=== PATIENT | male | born 1950 | race Caucasian/White ===

== ENCOUNTER → 2022-07-22 12:50 | Outpatient (CLI) | payer OTHER, SELFPAY ==
--- NOTE | 2022-07-22 | DI.CT.S_ITS ---
PROCEDURE: CT CHEST W CON INDICATIONS: Other forms of dyspnea TECHNIQUE: After the administration of intravenous contrast, 5 mm thick sections acquired from the pulmonary apices to the posterior costophrenic angles. 1 mm axial lung, 5 mm thick coronal and sagittal reformats and 7 mm axial MIP were acquired. For radiation dose reduction, the following was used: automated exposure control, adjustment of mA and/or kV according to patient size. COMPARISON: None. FINDINGS: Image quality: Excellent. Lungs and pleura: No acute air space opacities. Right middle lobe and lingula scars and atelectasis No pleural effusions or pneumothorax. Central and peripheral airways are patent and normal in caliber. Mediastinum: There is a mass measuring 2.8 x 3.2 cm along the right cardiac border. It may be associated with the right coronary artery. There are foci of calcification within the mass. Postsurgical changes related to CABG and severe atherosclerotic coronary artery calcifications. There is mass effect to the right atrium as well as the right ventricle. Heart size is normal. No pericardial effusion. No mediastinal or hilar adenopathy by size criteria. Thoracic aorta and central pulmonary arteries are normal in size. Esophagus is normal in caliber. No hiatal hernia. Bones and chest wall: No suspicious bony lesions. No vertebral body compression fractures. No axillary or supraclavicular adenopathy by size criteria. Thyroid gland is normal. Abdomen: There is a 5 mm stone in left kidney. A 2 cm left exophytic renal cyst is noted in the superior pole. Moderate hepatic steatosis. IMPRESSION: 1. Mass adjacent to the right cardiac border measuring 2.8 x 3.2 cm, which appears to be associated with the right coronary artery. There are postsurgical changes related to coronary artery bypass grafting. 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 Please correlate with prior imaging studies and echocardiogram. There is mass effect to the right ventricle and right atrium. 2. Severe coronary artery atherosclerosis. 3. Hepatic steatosis. 4. A 5 mm left renal stone. Dictated by: Sheila Wade M.D. on 07/22/2022 at 14:45 Approved by: Sheila Wade M.D. on 07/22/2022 at 14:55
[2022-07-22 13:24] LABS: Estimated Glomerular Filt Rate > 60 mL/min (>60)
== END ==
PROVIDERS: Specialist; PCP Internal Medicine; Referring Provider Internal Medicine; Visit Provider Internal Medicine
DX: R06.09 Other forms of dyspnea (principal); I51.9 Heart disease, unspecified; N20.0 Calculus of kidney; I25.10 Atherosclerotic heart disease of native coronary artery without angina pectoris; K76.0 Fatty (change of) liver, not elsewhere classified; Z95.1 Presence of aortocoronary bypass graft
CPT/HCPCS: 36415; 71260; 82565; Q9967

== ENCOUNTER 2024-04-18 06:56 | Inpatient (IN) | payer OTHER, SELFPAY ==
[2024-04-18] VITALS (41 sets, daily range): BP systolic 81–128; BP diastolic 48–77; PULSE 77–111; RESP 12–24; TEMP 36.1–36.8; O2SAT 92–96; BMI 37.6; BMI 35.8
[2024-04-18 07:08] LABS: Add Manual Diff / Slide Review NO; Basophils Absolute Auto 100 /uL (0-100); Basophils Percent Auto 0.3 % (0-2); Eosinophils Absolute Auto 300 /uL (0-450); Eosinophils Percent Auto 1.3 % (2-4); Hematocrit 37.6 % (41-53); Hemoglobin 12.6 g/dL (13.5-17.5); Lymphocytes Absolute Auto 5000 /uL (1100-4500); Lymphocytes Percent Auto 20.5 % (25-40); Mean Corpuscular HGB Conc 33.5 % (30-36); Mean Corpuscular Hemoglobin 32.1 PG (26-34); Mean Corpuscular Volume 95.8 fL (80-100); Monocytes Absolute Auto 1700 /uL (0-900); Monocytes Percent Auto 6.9 % (3-14); Neutrophils Absolute Auto 17300 /uL (1500-7000); Platelet Count 302 X10^3/uL (150-400); Red Blood Cell Count 3.93 X10^6/uL (4.5-5.9); White Blood Cell Count 24.4 X10^3/uL (4.5-11.0)
--- NOTE | 2024-04-18 07:08 | EKG_ITS ---
[place] [address] [address] [place] [id number] Test Date: 2024-04-18 Pat Name: [facility] Department: [facility] Room: Gender: Male Trauma Registrar: ISIDRA : [id number] Requested By: Order Number: [id number] Reading MD: Graham Diaz Measurements Intervals Clark Rate: 80 P: 52 NC: 224 QRS: -46 QRSD: 118 T: 63 QT: 412 QTc: 475 Interpretive Statements Sinus rhythm with 1st degree AV block Left axis deviation Nonspecific intraventricular conduction delay Electronically Signed On 04-18-2024 18:36:13 PST by Graham Diaz
[2024-04-18] MEDS: PANTOPRAZOLE 40 MG VIAL 80 MG IV (07:10)
[2024-04-18 07:12] LABS: INR 1.2 (0.9-1.3); Prothrombin Time 13.9 SECONDS (9.4-12.5)
[2024-04-18 07:14] LABS: PTT Partial Thromboplastin Tim 31 SECONDS (25.1-36.5)
--- NOTE | 2024-04-18 07:18 | PC.NURSE ---
Pts BP dropped to 86/54. Dr Aggarwal made aware.
--- NOTE | 2024-04-18 07:19 | ED.GIBLEED ---
HPI - GI Bleed General Chief complaint: GI Bleed Stated complaint: Dark stool Time Seen by Provider: 04/18/24 07:02 Source: patient and EMS Mode of arrival: EMS History of Present Illness HPI Narrative: Patient is a 74-year-old male. Reported to not be on anticoagulation. Is a full code. Recent heart attack/bypass graft. His had a local rehab facility secondary to the cardiac event who is here for evaluation of black colored stools. Patient states that his symptoms started this morning. He denies abdominal pain. Denies chest pain or shortness of breath. He states he has had dark-colored stools in the past but nothing to this extent and not recently. He has had a AAA repair years ago. He denies fevers. Related Data Allergies Allergy/AdvReac Type Severity Reaction Status Date / Time amoxicillin Allergy Verified 04/18/24 07:04 oxycodone Allergy Verified 04/18/24 07:04 Sulfa (Sulfonamide Allergy Verified 04/18/24 07:04 Antibiotics) Review of Systems Review of Systems ROS Unobtainable: All systems reviewed & are unremarkable except as noted in HPI and below Patient History Social History Smoking Status: Never smoker Smoking Status: Never smoker Exam Initial Vital Signs Initial Vital Signs: Vital Signs Temperature 98.3 F 04/18/24 06:59 Pulse Rate 83 04/18/24 06:59 Respiratory Rate 12 04/18/24 06:59 Blood Pressure 97/55 L 04/18/24 06:59 Pulse Oximetry 92 04/18/24 06:59 Oxygen Delivery Method Room Air 04/18/24 06:59 Const General: comfortable and well developed HENMT Head: normal to inspection and normocephalic Resp Effort & Inspection: normal respiratory effort Auscultation: clear to auscultation bilaterally Cardio Rate: regular rate Rhythm: regular rhythm GI Inspection: normal to inspection and non-distended Skin General: no rashes or lesions noted Other: Well healed surgical scars consistent with stated history Neuro General: patient alert and patient awake Course Orders Ordered: ED Orders 04/18/24 06:58 Complete Blood Count AUTO DIFF Stat Comprehensive Metabolic Panel Stat PTT Partial Thromboplastin Evaristo Stat Prothrombin Time INR Stat Troponin & CK Cardiac Panel Stat 04/18/24 07:01 EKG-12 Lead Stat 04/18/24 07:15 Type and Screen Stat 04/18/24 07:19 CT angio Abd/Pel GI Bleed Stat 04/18/24 09:00 Hemoglobin and Hematocrit Stat Lactate (Lactic Acid) Stat 04/18/24 09:18 Consult to General Surgery Stat Ondansetron HCl (Ondansetron 4 Mg/2 Ml Inj) 4 mg IV NOW PRN PRN Reason: Nausea And Vomiting Ondansetron HCl (Ondansetron 4 Mg Odt) 4 mg SL NOW PRN PRN Reason: Nausea And Vomiting Discontinued Medications Sodium Chloride (Normal Saline 0.9%) 1,000 mls @ 500 mls/hr IV BOLUS ONE Stop: 04/18/24 09:21 Last Infusion: 04/18/24 09:35 Dose: Infused Documented By: Admin: 04/18/24 08:17 Dose: 500 mls/hr Documented By: NIDHI Pantoprazole Sodium (Pantoprazole 40 Mg Vial) 80 mg IV NOW ONE Stop: 04/18/24 07:02 Last Admin: 04/18/24 07:10 Dose: 80 mg Documented By: NIDHI Vital Signs Vital signs: Vital Signs - 8 hr 04/18/24 06:59 04/18/24 06:59 04/18/24 06:59 Temperature 98.3 F Pulse Rate 83 84 Respiratory Rate 12 Blood Pressure 97/55 L 95/57 L Pulse Oximetry 92 93 Oxygen Delivery Method Room Air 04/18/24 07:00 04/18/24 07:00 04/18/24 07:15 Temperature Pulse Rate 81 78 Respiratory Rate 18 Blood Pressure 97/55 L Pulse Oximetry 93 92 Oxygen Delivery Method 04/18/24 07:15 04/18/24 07:20 04/18/24 07:20 Temperature Pulse Rate 79 Respiratory Rate 20 Blood Pressure 86/54 L 82/51 L Pulse Oximetry 94 Oxygen Delivery Method 04/18/24 07:33 04/18/24 07:35 04/18/24 07:35 Temperature Pulse Rate 85 84 Respiratory Rate 23 Blood Pressure 96/54 L Pulse Oximetry 96 Oxygen Delivery Method 04/18/24 07:40 04/18/24 07:40 04/18/24 07:45 Temperature Pulse Rate 82 80 Respiratory Rate 24 16 Blood Pressure 84/52 L Pulse Oximetry 95 95 Oxygen Delivery Method 04/18/24 07:45 04/18/24 07:46 04/18/24 07:46 Temperature Pulse Rate 80 Respiratory Rate 21 Blood Pressure 91/52 L 100/52 L Pulse Oximetry 95 Oxygen Delivery Method 04/18/24 07:50 04/18/24 07:50 04/18/24 07:55 Temperature Pulse Rate 81 Respiratory Rate 22 Blood Pressure 81/48 L 103/54 L Pulse Oximetry 95 Oxygen Delivery Method 04/18/24 07:55 04/18/24 07:57 04/18/24 07:57 Temperature Pulse Rate 80 77 Respiratory Rate 24 19 Blood Pressure 98/54 L Pulse Oximetry 93 93 Oxygen Delivery Method 04/18/24 08:00 04/18/24 08:00 04/18/24 08:08 Temperature Pulse Rate 78 Respiratory Rate 20 Blood Pressure 100/51 L 94/52 L Pulse Oximetry 93 Oxygen Delivery Method 04/18/24 08:08 04/18/24 08:10 04/18/24 08:10 Temperature Pulse Rate 79 79 Respiratory Rate 21 17 Blood Pressure 95/50 L Pulse Oximetry 94 94 Oxygen Delivery Method 04/18/24 08:15 04/18/24 08:15 04/18/24 08:20 Temperature Pulse Rate 79 80 Respiratory Rate 22 21 Blood Pressure 96/49 L Pulse Oximetry 94 95 Oxygen Delivery Method 04/18/24 08:20 04/18/24 08:25 04/18/24 08:25 Temperature Pulse Rate 80 Respiratory Rate 22 Blood Pressure 89/55 L 87/55 L Pulse Oximetry 95 Oxygen Delivery Method 04/18/24 08:30 04/18/24 08:30 04/18/24 08:35 Temperature Pulse Rate 81 Respiratory Rate 23 Blood Pressure 85/50 L 88/55 L Pulse Oximetry 95 Oxygen Delivery Method 04/18/24 08:35 04/18/24 08:40 04/18/24 08:40 Temperature Pulse Rate 79 82 Respiratory Rate 23 23 Blood Pressure 114/59 L Pulse Oximetry 94 95 Oxygen Delivery Method 04/18/24 08:45 04/18/24 08:45 04/18/24 08:50 Temperature Pulse Rate 81 Respiratory Rate 18 Blood Pressure 92/50 L 107/54 L Pulse Oximetry 94 Oxygen Delivery Method 04/18/24 08:50 04/18/24 08:55 04/18/24 08:55 Temperature Pulse Rate 80 80 Respiratory Rate 22 20 Blood Pressure 90/51 L Pulse Oximetry 95 Oxygen Delivery Method 04/18/24 09:00 04/18/24 09:00 04/18/24 09:05 Temperature Pulse Rate 83 Respiratory Rate 22 Blood Pressure 106/59 L 102/55 L Pulse Oximetry 96 Oxygen Delivery Method 04/18/24 09:05 04/18/24 09:10 04/18/24 09:10 Temperature Pulse Rate 80 82 Respiratory Rate 21 21 Blood Pressure 101/57 L Pulse Oximetry 94 94 Oxygen Delivery Method 04/18/24 09:15 04/18/24 09:15 04/18/24 09:20 Temperature Pulse Rate 79 Respiratory Rate 22 Blood Pressure 96/58 L 109/56 L Pulse Oximetry 94 Oxygen Delivery Method 04/18/24 09:20 04/18/24 09:25 04/18/24 09:25 Temperature Pulse Rate 81 82 Respiratory Rate 22 22 Blood Pressure 115/58 L Pulse Oximetry 94 94 Oxygen Delivery Method 04/18/24 09:30 04/18/24 09:30 Temperature Pulse Rate 83 Respiratory Rate 18 Blood Pressure 116/63 Pulse Oximetry 94 Oxygen Delivery Method MDM - GI Bleed Lab Data Attestation: I reviewed the patient's lab results. 04/18/24 09:00 04/18/24 06:58 Labs: Lab Results 04/18/24 04/18/24 04/18/24 Range/Units 06:58 07:15 09:00 WBC 24.4 H (4.5-11.0) X10^3/uL RBC 3.93 L (4.5-5.9) X10^6/uL Hgb 12.6 L 11.4 L (13.5-17.5) g/dL Hct 37.6 L 33.6 L (41-53) % MCV 95.8 (80-100) fL MCH 32.1 (26-34) PG MCHC 33.5 (30-36) % RDW 13.0 (11.6-14.8) % Plt Count 302 (150-400) X10^3/uL Neut % (Auto) 71.0 (50-75) % Lymph % (Auto) 20.5 L (25-40) % [place] % (Auto) 6.9 (3-14) % Eos % (Auto) 1.3 L (2-4) % Baso % (Auto) 0.3 (0-2) % Neut # (Auto) 50222 H (0689-5274) /uL Lymph # (Auto) 5000 H (4468-0495) /uL [place] # (Auto) 1700 H (0-900) /uL Eos # (Auto) 300 (0-450) /uL Baso # (Auto) 100 (0-100) /uL PT 13.9 H (9.4-12.5) SECONDS INR 1.2 (0.9-1.3) APTT 31 (25.1-36.5) SECONDS Sodium 138 (137-145) mmol/L Potassium 4.7 (3.4-5.1) mmol/L Chloride 109 H (98-107) mmol/L Carbon Dioxide 21 L (22-32) mmol/L BUN 38 H (9-20) mg/dL Creatinine 1.02 (0.66-1.25) mg/dL Estimated GFR > 60 (>60) mL/min BUN/Creatinine Ratio 37.3 H (6-22) Glucose 218 H (80-110) mg/dL Lactate 1.8 (0.7-2.1) mmol/L Calcium 8.8 (8.4-10.2) mg/dL Total Bilirubin 1.7 H (0.2-1.3) mg/dL AST 30 (17-59) IU/L ALT 29 (<50) IU/L Alkaline Phosphatase 68 (38-126) U/L Total Creatine Kinase 59 (55-170) U/L Total Protein 6.6 (6.3-8.2) g/dL Albumin 3.6 (3.5-5.0) g/dL Globulin 3.0 (1.7-4.1) g/dL Albumin/Globulin Ratio 1.2 (1.0-2.8) Blood Type A Positive Antibody Screen Positive Antibody Identification Anti-Fya Imaging Data CT scan - abdomen/pelvis: Radiologist's Impression: PROCEDURE: CT ANGIO ABD/PEL GI BLEED INDICATIONS: GI Bleed TECHNIQUE: After the administration of intravenous contrast, 2.5 mm thick sections acquired from the diaphragm to the symphysis. 10 mm maximum-intensity projection (MIP) reformats were then acquired. For radiation dose reduction, the following was used: automated exposure control. COMPARISON: [facility], RG, [facility]A [facility], 01/28/2019, 10:52. FINDINGS: Image Quality: Diagnostic. Abdominal aorta: Infrarenal aortic aneurysm measuring 3.6 centimeter. 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 SMA has mild atherosclerotic disease without poststenotic dilation. Occlusion of the HANDY, with reconstitution approximately 2 centimeters from the origin. Renal arteries: Patent without hemodynamically significant stenosis. OTHER: Lower Chest: Dependent secretions within the airways. Small hiatal hernia. Liver: No solid mass. Gallbladder: No radiopaque gallstones or wall thickening. Biliary ducts: No biliary dilation. Pancreas: No ductal dilation. Spleen: Size is within normal limits. Adrenal Glands: No adrenal nodules. Kidneys and Ureters: No hydronephrosis. No solid mass. No complex renal cystic lesion which requires follow up. Moderate burden left-sided nonobstructing nephrolithiasis, largest measuring 5 millimeters. Stomach and Bowel: Normal colonic caliber, without significant wall thickening. Colonic diverticulosis without evidence of diverticulitis. Normal appendix. Peritoneum: No abnormal intraperitoneal fluid. No free air. Ventral Wall: Small umbilical hernia containing fat. Multifocal midline, small ventral hernias containing fat. Abdominal Nodes: No retroperitoneal or mesenteric adenopathy by size criteria. Vessels: Occluded left internal iliac aneurysm, with distal reconstitution. Left common iliac bypass. PELVIS: Pelvic Organs: Unremarkable. Bladder: Unremarkable. Pelvic Nodes: No enlarged lymph nodes. Miscellaneous: No inguinal hernias are seen. Bones: No aggressive osseous abnormality. IMPRESSION: No active GI bleed. 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 Mild atherosclerotic disease of the SMA. HANDY is occluded. Together, findings place this patient at risk of chronic mesenteric ischemia. Infrarenal aortic aneurysm measuring 3.6 centimeters, not significantly changed since 2019. Five year sonographic follow-up is recommended per consensus guidelines. Dependent secretions within the airways, which may indicate aspiration. Correlate with risk factors and consider speech pathology referral. Other chronic findings as above. ECG Data Attestation: I personally reviewed and interpreted this ECG as follows: Interpretation: Sinus rhythm First-degree AV block WI interval 2-4 milliseconds Ventricular rate of 80 Left axis deviation MDM Narrative Medical decision making narrative: Recent admission to the hospital for an NSTEMI. He was on dual antiplatelet (aspirin/clopidogrel) but no other anticoagulation. Is here for evaluation of black colored stools this morning. He has had a colonoscopy in the past (within the last 10 years) but it does not know the exact date. He states there were no abnormalities. He has had GI bleeding in the past but he states it was never been to this extent. Patient arrived hypotensive with a systolic blood pressures in the 80s. This improved with just gentle hydration. Initial H&H is relatively unremarkable and a 2 hour repeat shows just a slight drop. CT scan does not show any active bleeding. He was a soft abdomen. Unremarkable lactate. 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 He has had a AAA repair in the past. I did discuss the case with Dr. Spear on-call for General surgery who stated that he would consult on the patient upon admission. Discussed the case with Dr. Diaz hospitalist on-call who will admit. Discussed the need for admission with the patient. He expressed understanding and agreement as well. Discharge Plan Departure Patient Disposition: Admitted As Inpatient Clinical Impression: Melena Admit Date/Time: 04/18/24 09:31 Admit Provider: Graham Diaz
[2024-04-18 07:20] LABS: Alanine Aminotransferase 29 IU/L (<50); Albumin 3.6 g/dL (3.5-5.0); Albumin Globulin Ratio 1.2 (1.0-2.8); Alkaline Phosphatase 68 U/L (38-126); Aspartate Aminotransferase 30 IU/L (17-59); BUN Creatinine Ratio 37.3 (6-22); Bilirubin Total 1.7 mg/dL (0.2-1.3); Blood Urea Nitrogen 38 mg/dL (9-20); Calcium 8.8 mg/dL (8.4-10.2); Carbon Dioxide 21 mmol/L (22-32); Chloride 109 mmol/L (98-107); Estimated Glomerular Filt Rate > 60 mL/min (>60); Glucose 218 mg/dL (80-110); HEMOLYSIS 30 (0-50); Potassium 4.7 mmol/L (3.4-5.1); Sodium 138 mmol/L (137-145); Total Protein 6.6 g/dL (6.3-8.2)
[2024-04-18] MEDS: SODIUM CHLORIDE 0.9% 1,000 ML 500 ML IV (08:17)
--- NOTE | 2024-04-18 08:36 | PC.NURSE ---
Pt noted to have maroon colored stool. Diarrhea noted. Pt tachypnic around 24 RR. Pt states he may have had a GI bleed in the past he does not remember. Denies taking blood thinner. States he does not know if he takes ibuprofen? Pt states the bleeding happened this evening.Pt informed it is still the morning. Pt slightly pale in color. BP running between 80s-110s systolic. Pt states he is at [facility] [place]
[2024-04-18 09:11] LABS: Hematocrit 33.6 % (41-53); Hemoglobin 11.4 g/dL (13.5-17.5)
[2024-04-18 09:23] LABS: Lactate (Lactic Acid) 1.8 mmol/L (0.7-2.1)
[2024-04-18 09:44] LABS: Creatine Kinase 59 U/L (55-170)
[2024-04-18 09:57] LABS: Troponin I 0.024 ng/mL (0.01-0.034)
--- NOTE | 2024-04-18 10:33 | P.HP_ITS ---
History of Present Illness History of Present Illness Date Patient Seen: 04/18/24 Chief complaint: Dark stool Narrative: The patient was a 74-year-old male who presented from [facility] due to melena this morning. He was found to have stable vital signs and has had a stable hemoglobin with serial lab draws today. He denies any epigastric abdominal pain, nausea, vomiting, or hematemesis. He was no history of PUD or melena. He was discharged from [facility] after an admission for an NSTEMI. The patient has a known history of CAD and was found to have an interval occlusion of his mid circumflex. He had a patent YAP to LAD stent and a patent SVG to diagonal stent as well as multiple chronic severe stenoses in the RCA. His EF at improved to 75%. He had a CABG in 2004. He also has mild aortic stenosis as well as a known aortic aneurysm which was repaired in 2012 and a provoked pulmonary embolism. He was chronic diabetes type 2. Echo from April 08 reveals an EF of 75% and an aortic mass from previous echo has resolved. He was mild aortic valve stenosis with a aortic valve area of 2.0 sq cm. He was discharged from [facility] on Plavix, Jardiance, Imdur, and lisinopril. Dr. Baker was his esthetician makeup artist. Upon arrival he denies any chest pain or dyspnea. He also denies any abdominal pain this morning. [facility] Social History household members: spouse Smoking Status: Never smoker Meds Home Medications and Allergies Home Medications Medication Instructions Recorded Confirmed Type acetaminophen 500 mg tablet 500 mg PO Q6H PRN Pain (Scale 04/18/24 04/18/24 History Score 1-3) aspirin 81 mg chewable tablet 81 mg PO DAILY 04/18/24 04/18/24 History atorvastatin 80 mg tablet 80 mg PO DAILY 04/18/24 04/18/24 History bupropion HCl 150 mg 24 hr tablet, 150 mg PO DAILY 04/18/24 04/18/24 History extended release cholecalciferol (vitamin D3) 25 25 mcg PO DAILY 04/18/24 04/18/24 History mcg (1,000 unit) tablet clopidogrel 75 mg tablet 75 mg PO DAILY 04/18/24 04/18/24 History duloxetine 30 mg capsule,delayed 30 mg PO DAILY 04/18/24 04/18/24 History release empagliflozin 10 mg tablet 10 mg PO DAILY 04/18/24 04/18/24 History (Jardiance) ezetimibe 10 mg tablet 10 mg PO DAILY 04/18/24 04/18/24 History hydrocodone 5 mg-acetaminophen 325 1 tab PO 3XD PRN Pain (Scale Score 04/18/24 04/18/24 History mg tablet 4-6) isosorbide mononitrate 30 mg 30 mg PO DAILY 04/18/24 04/18/24 History tablet,extended release 24 hr levothyroxine 100 mcg tablet 100 mcg PO DAILY 04/18/24 04/18/24 History lisinopril 5 mg tablet 5 mg PO DAILY 04/18/24 04/18/24 History metoprolol succinate 100 mg 100 mg PO DAILY 04/18/24 04/18/24 History tablet,extended release 24 hr mirabegron 50 mg tablet,extended 50 mg PO DAILY 04/18/24 04/18/24 History release 24 hr nitroglycerin 0.4 mg sublingual 0.4 mg sublingual Q5-15M PRN Chest 04/18/24 04/18/24 History tablet Pain omeprazole magnesium 20 mg 20 mg PO DAILY 04/18/24 04/18/24 History capsule,delayed release (Acid [employer] (omeprazole)) ranolazine 500 mg tablet,extended 500 mg PO BID 04/18/24 04/18/24 History release,12 hr tamsulosin 0.4 mg capsule 0.4 mg PO DAILY 04/18/24 04/18/24 History Allergies Allergy/AdvReac Type Severity Reaction Status Date / Time amoxicillin Allergy Verified 04/18/24 07:04 oxycodone Allergy Verified 04/18/24 07:04 Sulfa (Sulfonamide Allergy Verified 04/18/24 07:04 Antibiotics) Review of Systems Review of Systems Narrative: All else reviewed and otherwise unremarkable except as noted in the history and physical. Exam Vital Signs (past 8 hours): - 04/18/24 06:59 04/18/24 06:59 04/18/24 06:59 Temperature 98.3 F Pulse Rate 83 84 Respiratory Rate 12 Blood Pressure 97/55 L 95/57 L Pulse Oximetry 92 93 Oxygen Delivery Method Room Air Oxygen Flow Rate 04/18/24 07:00 04/18/24 07:00 04/18/24 07:15 Temperature Pulse Rate 81 78 Respiratory Rate 18 Blood Pressure 97/55 L Pulse Oximetry 93 92 Oxygen Delivery Method Oxygen Flow Rate 04/18/24 07:15 04/18/24 07:20 04/18/24 07:20 Temperature Pulse Rate 79 Respiratory Rate 20 Blood Pressure 86/54 L 82/51 L Pulse Oximetry 94 Oxygen Delivery Method Oxygen Flow Rate 04/18/24 07:33 04/18/24 07:35 04/18/24 07:35 Temperature Pulse Rate 85 84 Respiratory Rate 23 Blood Pressure 96/54 L Pulse Oximetry 96 Oxygen Delivery Method Oxygen Flow Rate 04/18/24 07:40 04/18/24 07:40 04/18/24 07:45 Temperature Pulse Rate 82 80 Respiratory Rate 24 16 Blood Pressure 84/52 L Pulse Oximetry 95 95 Oxygen Delivery Method Oxygen Flow Rate 04/18/24 07:45 04/18/24 07:46 04/18/24 07:46 Temperature Pulse Rate 80 Respiratory Rate 21 Blood Pressure 91/52 L 100/52 L Pulse Oximetry 95 Oxygen Delivery Method Oxygen Flow Rate 04/18/24 07:50 04/18/24 07:50 04/18/24 07:55 Temperature Pulse Rate 81 Respiratory Rate 22 Blood Pressure 81/48 L 103/54 L Pulse Oximetry 95 Oxygen Delivery Method Oxygen Flow Rate 04/18/24 07:55 04/18/24 07:57 04/18/24 07:57 Temperature Pulse Rate 80 77 Respiratory Rate 24 19 Blood Pressure 98/54 L Pulse Oximetry 93 93 Oxygen Delivery Method Oxygen Flow Rate 04/18/24 08:00 04/18/24 08:00 04/18/24 08:08 Temperature Pulse Rate 78 Respiratory Rate 20 Blood Pressure 100/51 L 94/52 L Pulse Oximetry 93 Oxygen Delivery Method Oxygen Flow Rate 04/18/24 08:08 04/18/24 08:10 04/18/24 08:10 Temperature Pulse Rate 79 79 Respiratory Rate 21 17 Blood Pressure 95/50 L Pulse Oximetry 94 94 Oxygen Delivery Method Oxygen Flow Rate 04/18/24 08:15 04/18/24 08:15 04/18/24 08:20 Temperature Pulse Rate 79 80 Respiratory Rate 22 21 Blood Pressure 96/49 L Pulse Oximetry 94 95 Oxygen Delivery Method Oxygen Flow Rate 04/18/24 08:20 04/18/24 08:25 04/18/24 08:25 Temperature Pulse Rate 80 Respiratory Rate 22 Blood Pressure 89/55 L 87/55 L Pulse Oximetry 95 Oxygen Delivery Method Oxygen Flow Rate 04/18/24 08:30 04/18/24 08:30 04/18/24 08:35 Temperature Pulse Rate 81 Respiratory Rate 23 Blood Pressure 85/50 L 88/55 L Pulse Oximetry 95 Oxygen Delivery Method Oxygen Flow Rate 04/18/24 08:35 04/18/24 08:40 04/18/24 08:40 Temperature Pulse Rate 79 82 Respiratory Rate 23 23 Blood Pressure 114/59 L Pulse Oximetry 94 95 Oxygen Delivery Method Oxygen Flow Rate 04/18/24 08:45 04/18/24 08:45 04/18/24 08:50 Temperature Pulse Rate 81 Respiratory Rate 18 Blood Pressure 92/50 L 107/54 L Pulse Oximetry 94 Oxygen Delivery Method Oxygen Flow Rate 04/18/24 08:50 04/18/24 08:55 04/18/24 08:55 Temperature Pulse Rate 80 80 Respiratory Rate 22 20 Blood Pressure 90/51 L Pulse Oximetry 95 Oxygen Delivery Method Oxygen Flow Rate 04/18/24 09:00 04/18/24 09:00 04/18/24 09:05 Temperature Pulse Rate 83 Respiratory Rate 22 Blood Pressure 106/59 L 102/55 L Pulse Oximetry 96 Oxygen Delivery Method Oxygen Flow Rate 04/18/24 09:05 04/18/24 09:10 04/18/24 09:10 Temperature Pulse Rate 80 82 Respiratory Rate 21 21 Blood Pressure 101/57 L Pulse Oximetry 94 94 Oxygen Delivery Method Oxygen Flow Rate 04/18/24 09:15 04/18/24 09:15 04/18/24 09:20 Temperature Pulse Rate 79 Respiratory Rate 22 Blood Pressure 96/58 L 109/56 L Pulse Oximetry 94 Oxygen Delivery Method Oxygen Flow Rate 04/18/24 09:20 04/18/24 09:25 04/18/24 09:25 Temperature Pulse Rate 81 82 Respiratory Rate 22 22 Blood Pressure 115/58 L Pulse Oximetry 94 94 Oxygen Delivery Method Oxygen Flow Rate 04/18/24 09:30 04/18/24 09:30 04/18/24 09:35 Temperature Pulse Rate 83 Respiratory Rate 18 Blood Pressure 116/63 128/70 Pulse Oximetry 94 Oxygen Delivery Method Oxygen Flow Rate 04/18/24 09:35 04/18/24 09:40 04/18/24 09:40 Temperature Pulse Rate 87 85 Respiratory Rate 18 21 Blood Pressure 123/72 Pulse Oximetry 94 94 Oxygen Delivery Method Oxygen Flow Rate 04/18/24 09:41 04/18/24 09:46 04/18/24 09:51 Temperature Pulse Rate 86 90 Respiratory Rate 15 Blood Pressure 89/57 L Pulse Oximetry Oxygen Delivery Method Oxygen Flow Rate 04/18/24 09:52 04/18/24 10:28 Temperature 97.4 F L Pulse Rate 84 Respiratory Rate 20 Blood Pressure 122/65 105/77 Pulse Oximetry 96 Oxygen Delivery Method Oxygen Flow Rate 0 Oxygen Delivery Method Room Air Oxygen Flow Rate 0 Narrative Exam Narrative: NAD, alert and oriented, fluent speech, calm. Normocephalic skull, EOMI, anicteric sclera, symmetric pupils. Oropharynx unremarkable, no droop. Neck supple, midline trachea, no adenopathy. Lungs clear, normal rate and effort. Heart regular, no murmur gallop or rub. Abdomen is soft, non distended and non tender. Extremities are free of edema. Skin is free of rash or lesions. Joints are not swollen or deformed. Judgment appears to be normal. Objective Imaging Abdomen CTA: : My impression: Sinus rhythm with 1st degree AV block Left axis deviation Nonspecific intraventricular conduction delay Radiologist's impression: No active GI bleed. 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 Mild atherosclerotic disease of the SMA. HANDY is occluded. Together, findings place this patient at risk of chronic mesenteric ischemia. Infrarenal aortic aneurysm measuring 3.6 centimeters, not significantly changed since 2019. Five year sonographic follow-up is recommended per consensus guidelines. Dependent secretions within the airways, which may indicate aspiration. Correlate with risk factors and consider speech pathology referral. Other chronic findings as above. Labs 04/18/24 10:55 04/18/24 06:58 Labs: Laboratory Results - last 24 hr 04/18/24 04/18/24 04/18/24 06:58 07:15 09:00 WBC 24.4 H RBC 3.93 L Hgb 12.6 L 11.4 L Hct 37.6 L 33.6 L MCV 95.8 MCH 32.1 MCHC 33.5 RDW 13.0 Plt Count 302 Neut % (Auto) 71.0 Lymph % (Auto) 20.5 L Emanuel % (Auto) 6.9 Eos % (Auto) 1.3 L Baso % (Auto) 0.3 Neut # (Auto) 68724 H Lymph # (Auto) 5000 H Emanuel # (Auto) 1700 H Eos # (Auto) 300 Baso # (Auto) 100 PT 13.9 H INR 1.2 APTT 31 Sodium 138 Potassium 4.7 Chloride 109 H Carbon Dioxide 21 L BUN 38 H Creatinine 1.02 Estimated GFR > 60 BUN/Creatinine Ratio 37.3 H Glucose 218 H Lactate 1.8 Calcium 8.8 Total Bilirubin 1.7 H AST 30 ALT 29 Alkaline Phosphatase 68 Total Creatine Kinase 59 Troponin I 0.024 Total Protein 6.6 Albumin 3.6 Globulin 3.0 Albumin/Globulin Ratio 1.2 Blood Type A Positive 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 Upper GI bleed with melena, present on admission and active. 2. CAD, present on admission and stable. On chronic Plavix. 3. Mild aortic stenosis, present on admission and stable. 4. DM 2, present on admission and stable. 5. Obesity class 2 with BMI of 35.8, present on admission and active. Plan: -IV ppi, Protonix 40 IV q.12 hours. -general surgery consultation for consideration of endoscopy. -hold Plavix for 24-48 hours. -we will discuss with [facility] pending his clinical course. -blood support if he has severe enough blood loss anemia. -a.c. HS blood sugars with correctional lispro. Full resuscitation, he was a pulse which is dated April 08, 2024. Anticipate 2 midnights length of hospitalization, supports inpatient status. REJI: April 20. Time-Based Coding :: 35 min spent with patient and on the chart (including review of chart, obtaining history, exam, reviewing outside data, placing orders, documenting exam and treatment plan, and counseling patient) on 04/18. Quality VTE Deep Vein Thrombosis/Pulmonary Embolism Present on Admission: No MIPS - Admit I confirm the patient?s Advance Care Plan is present, Code status is documented, Surrogate decision maker is in patient?s record [If Yes, STOP here]: Yes MIPS - Meds 'Current medications' to include all prescriptions, [id number] products, herbals, cannabis/cannabidiol products, and vitamin/mineral/dietary (nutritional) supplements. I have utilized all available resources to obtain, update, or review the patient?s current medications. [If Yes, STOP here]: Yes
[2024-04-18] MEDS: SODIUM CHLORIDE 0.9% 1,000 ML 50 ML IV (11:19)
[2024-04-18 11:33] LABS: Hematocrit 33.5 % (41-53); Hemoglobin 11.6 g/dL (13.5-17.5)
--- NOTE | 2024-04-18 11:54 | PM.CN ---
History of Present Illness Consult details Date Patient Seen: 04/18/24 Time Patient Seen: 11:56 Chief complaint: Dark stool Reason for consult: GI bleed, s/p CABG 2 wks ago, on ASA and Plavix.. Meds Home Medications and Allergies Home Medications Medication Instructions Recorded Confirmed Type acetaminophen 500 mg tablet 500 mg PO Q6H PRN Pain (Scale 04/18/24 04/18/24 History Score 1-3) aspirin 81 mg chewable tablet 81 mg PO DAILY 04/18/24 04/18/24 History atorvastatin 80 mg tablet 80 mg PO DAILY 04/18/24 04/18/24 History bupropion HCl 150 mg 24 hr tablet, 150 mg PO DAILY 04/18/24 04/18/24 History extended release cholecalciferol (vitamin D3) 25 25 mcg PO DAILY 04/18/24 04/18/24 History mcg (1,000 unit) tablet clopidogrel 75 mg tablet 75 mg PO DAILY 04/18/24 04/18/24 History duloxetine 30 mg capsule,delayed 30 mg PO DAILY 04/18/24 04/18/24 History release empagliflozin 10 mg tablet 10 mg PO DAILY 04/18/24 04/18/24 History (Jardiance) ezetimibe 10 mg tablet 10 mg PO DAILY 04/18/24 04/18/24 History hydrocodone 5 mg-acetaminophen 325 1 tab PO 3XD PRN Pain (Scale Score 04/18/24 04/18/24 History mg tablet 4-6) isosorbide mononitrate 30 mg 30 mg PO DAILY 04/18/24 04/18/24 History tablet,extended release 24 hr levothyroxine 100 mcg tablet 100 mcg PO DAILY 04/18/24 04/18/24 History lisinopril 5 mg tablet 5 mg PO DAILY 04/18/24 04/18/24 History metoprolol succinate 100 mg 100 mg PO DAILY 04/18/24 04/18/24 History tablet,extended release 24 hr mirabegron 50 mg tablet,extended 50 mg PO DAILY 04/18/24 04/18/24 History release 24 hr nitroglycerin 0.4 mg sublingual 0.4 mg sublingual Q5-15M PRN Chest 04/18/24 04/18/24 History tablet Pain omeprazole magnesium 20 mg 20 mg PO DAILY 04/18/24 04/18/24 History capsule,delayed release (Acid Manager Professional Development (omeprazole)) ranolazine 500 mg tablet,extended 500 mg PO BID 04/18/24 04/18/24 History release,12 hr tamsulosin 0.4 mg capsule 0.4 mg PO DAILY 04/18/24 04/18/24 History Allergies Allergy/AdvReac Type Severity Reaction Status Date / Time amoxicillin Allergy Verified 04/18/24 07:04 oxycodone Allergy Verified 04/18/24 07:04 Sulfa (Sulfonamide Allergy Verified 04/18/24 07:04 Antibiotics) Review of Systems Review of Systems ROS: Yes All systems reviewed with the patient and are negative except as otherwise documented Exam Vital Signs (past 8 hours): - 04/18/24 06:59 04/18/24 06:59 04/18/24 06:59 Temperature 98.3 F Pulse Rate 83 84 Respiratory Rate 12 Blood Pressure 97/55 L 95/57 L Pulse Oximetry 92 93 Oxygen Delivery Method Room Air Oxygen Flow Rate 04/18/24 07:00 04/18/24 07:00 04/18/24 07:15 Temperature Pulse Rate 81 78 Respiratory Rate 18 Blood Pressure 97/55 L Pulse Oximetry 93 92 Oxygen Delivery Method Oxygen Flow Rate 04/18/24 07:15 04/18/24 07:20 04/18/24 07:20 Temperature Pulse Rate 79 Respiratory Rate 20 Blood Pressure 86/54 L 82/51 L Pulse Oximetry 94 Oxygen Delivery Method Oxygen Flow Rate 04/18/24 07:33 04/18/24 07:35 04/18/24 07:35 Temperature Pulse Rate 85 84 Respiratory Rate 23 Blood Pressure 96/54 L Pulse Oximetry 96 Oxygen Delivery Method Oxygen Flow Rate 04/18/24 07:40 04/18/24 07:40 04/18/24 07:45 Temperature Pulse Rate 82 80 Respiratory Rate 24 16 Blood Pressure 84/52 L Pulse Oximetry 95 95 Oxygen Delivery Method Oxygen Flow Rate 04/18/24 07:45 04/18/24 07:46 04/18/24 07:46 Temperature Pulse Rate 80 Respiratory Rate 21 Blood Pressure 91/52 L 100/52 L Pulse Oximetry 95 Oxygen Delivery Method Oxygen Flow Rate 04/18/24 07:50 04/18/24 07:50 04/18/24 07:55 Temperature Pulse Rate 81 Respiratory Rate 22 Blood Pressure 81/48 L 103/54 L Pulse Oximetry 95 Oxygen Delivery Method Oxygen Flow Rate 04/18/24 07:55 04/18/24 07:57 04/18/24 07:57 Temperature Pulse Rate 80 77 Respiratory Rate 24 19 Blood Pressure 98/54 L Pulse Oximetry 93 93 Oxygen Delivery Method Oxygen Flow Rate 04/18/24 08:00 04/18/24 08:00 04/18/24 08:08 Temperature Pulse Rate 78 Respiratory Rate 20 Blood Pressure 100/51 L 94/52 L Pulse Oximetry 93 Oxygen Delivery Method Oxygen Flow Rate 04/18/24 08:08 04/18/24 08:10 04/18/24 08:10 Temperature Pulse Rate 79 79 Respiratory Rate 21 17 Blood Pressure 95/50 L Pulse Oximetry 94 94 Oxygen Delivery Method Oxygen Flow Rate 04/18/24 08:15 04/18/24 08:15 04/18/24 08:20 Temperature Pulse Rate 79 80 Respiratory Rate 22 21 Blood Pressure 96/49 L Pulse Oximetry 94 95 Oxygen Delivery Method Oxygen Flow Rate 04/18/24 08:20 04/18/24 08:25 04/18/24 08:25 Temperature Pulse Rate 80 Respiratory Rate 22 Blood Pressure 89/55 L 87/55 L Pulse Oximetry 95 Oxygen Delivery Method Oxygen Flow Rate 04/18/24 08:30 04/18/24 08:30 04/18/24 08:35 Temperature Pulse Rate 81 Respiratory Rate 23 Blood Pressure 85/50 L 88/55 L Pulse Oximetry 95 Oxygen Delivery Method Oxygen Flow Rate 04/18/24 08:35 04/18/24 08:40 04/18/24 08:40 Temperature Pulse Rate 79 82 Respiratory Rate 23 23 Blood Pressure 114/59 L Pulse Oximetry 94 95 Oxygen Delivery Method Oxygen Flow Rate 04/18/24 08:45 04/18/24 08:45 04/18/24 08:50 Temperature Pulse Rate 81 Respiratory Rate 18 Blood Pressure 92/50 L 107/54 L Pulse Oximetry 94 Oxygen Delivery Method Oxygen Flow Rate 04/18/24 08:50 04/18/24 08:55 04/18/24 08:55 Temperature Pulse Rate 80 80 Respiratory Rate 22 20 Blood Pressure 90/51 L Pulse Oximetry 95 Oxygen Delivery Method Oxygen Flow Rate 04/18/24 09:00 04/18/24 09:00 04/18/24 09:05 Temperature Pulse Rate 83 Respiratory Rate 22 Blood Pressure 106/59 L 102/55 L Pulse Oximetry 96 Oxygen Delivery Method Oxygen Flow Rate 04/18/24 09:05 04/18/24 09:10 04/18/24 09:10 Temperature Pulse Rate 80 82 Respiratory Rate 21 21 Blood Pressure 101/57 L Pulse Oximetry 94 94 Oxygen Delivery Method Oxygen Flow Rate 04/18/24 09:15 04/18/24 09:15 04/18/24 09:20 Temperature Pulse Rate 79 Respiratory Rate 22 Blood Pressure 96/58 L 109/56 L Pulse Oximetry 94 Oxygen Delivery Method Oxygen Flow Rate 04/18/24 09:20 04/18/24 09:25 04/18/24 09:25 Temperature Pulse Rate 81 82 Respiratory Rate 22 22 Blood Pressure 115/58 L Pulse Oximetry 94 94 Oxygen Delivery Method Oxygen Flow Rate 04/18/24 09:30 04/18/24 09:30 04/18/24 09:35 Temperature Pulse Rate 83 Respiratory Rate 18 Blood Pressure 116/63 128/70 Pulse Oximetry 94 Oxygen Delivery Method Oxygen Flow Rate 04/18/24 09:35 04/18/24 09:40 04/18/24 09:40 Temperature Pulse Rate 87 85 Respiratory Rate 18 21 Blood Pressure 123/72 Pulse Oximetry 94 94 Oxygen Delivery Method Oxygen Flow Rate 04/18/24 09:41 04/18/24 09:46 04/18/24 09:51 Temperature Pulse Rate 86 90 Respiratory Rate 15 Blood Pressure 89/57 L Pulse Oximetry Oxygen Delivery Method Oxygen Flow Rate 04/18/24 09:52 04/18/24 10:28 Temperature 97.4 F L Pulse Rate 84 Respiratory Rate 20 Blood Pressure 122/65 105/77 Pulse Oximetry 96 Oxygen Delivery Method Oxygen Flow Rate 0 Oxygen Delivery Method Room Air Oxygen Flow Rate 0 Narrative Exam Narrative: Abdomen soft BENIGN, NT ND positive bowel sounds, no organo-megaly. Const General: cooperative Objective Labs 04/18/24 10:55 04/18/24 06:58 Labs: Laboratory Results - last 24 hr 04/18/24 04/18/24 04/18/24 06:58 07:15 09:00 WBC 24.4 H RBC 3.93 L Hgb 12.6 L 11.4 L Hct 37.6 L 33.6 L MCV 95.8 MCH 32.1 MCHC 33.5 RDW 13.0 Plt Count 302 Neut % (Auto) 71.0 Lymph % (Auto) 20.5 L Mcmullen % (Auto) 6.9 Eos % (Auto) 1.3 L Baso % (Auto) 0.3 Neut # (Auto) 06507 H Lymph # (Auto) 5000 H Mcmullen # (Auto) 1700 H Eos # (Auto) 300 Baso # (Auto) 100 PT 13.9 H INR 1.2 APTT 31 Sodium 138 Potassium 4.7 Chloride 109 H Carbon Dioxide 21 L BUN 38 H Creatinine 1.02 Estimated GFR > 60 BUN/Creatinine Ratio 37.3 H Glucose 218 H Lactate 1.8 Calcium 8.8 Total Bilirubin 1.7 H AST 30 ALT 29 Alkaline Phosphatase 68 Total Creatine Kinase 59 Troponin I 0.024 Total Protein 6.6 Albumin 3.6 Globulin 3.0 Albumin/Globulin Ratio 1.2 Blood Type A Positive Antibody Screen Positive Antibody Identification Anti-Fya 04/18/24 10:55 WBC RBC Hgb 11.6 L Hct 33.5 L MCV MCH MCHC RDW Plt Count Neut % (Auto) Lymph % (Auto) Mcmullen % (Auto) Eos % (Auto) Baso % (Auto) Neut # (Auto) Lymph # (Auto) Mcmullen # (Auto) Eos # (Auto) Baso # (Auto) PT INR APTT Sodium Potassium Chloride Carbon Dioxide BUN Creatinine Estimated GFR BUN/Creatinine Ratio Glucose Lactate Calcium Total Bilirubin AST ALT Alkaline Phosphatase Total Creatine Kinase Troponin I Total Protein Albumin Globulin Albumin/Globulin Ratio Blood Type Antibody Screen Antibody Identification [facility] Social History household members: spouse Tobacco & Substance Use Smoking Status: Never smoker Assessment & Plan Assessment and plan (1) Melena: Problem details: He had GI bleed, from the antiplatelet s - for his CAD not candidate for re- surgery.. Re-CABG.. No ongoing bleeding his Hb twice was 11+, BUT he needs CARDIOLOGY consult to tailor his antiplatelet s for his CAD.. I will follow, but he does NOT need a colonoscopy, his last one was NORMAL 2 years ago, and his next due one is 2031. He also had an EGD 2012 that was normal as well, and NO symptoms to suggest PUD. Continue to monitor H&H and transfuse if less than 7~8gm%. Status: Acute Time-Based Coding :: [TOTAL MINUTES] spent with patient and on the chart (including review of chart, obtaining history, exam, reviewing outside data, placing orders, documenting exam and treatment plan, and counseling patient) on [DATE].
[2024-04-18] MEDS: HYDROCODONE/ACET 5/325 TABLET 1 TAB PO (15:07)
[2024-04-18] MEDS: ATORVASTATIN 20 MG TABLET 80 MG PO (15:11)
[2024-04-18] MEDS: buPROPion XL 150 MG TAB PO (15:11)
[2024-04-18] MEDS: DULOXETINE 30 MG CAPSULE PO (15:11)
[2024-04-18] MEDS: TAMSULOSIN 0.4 MG CAPSULE PO (15:12)
[2024-04-18] MEDS: RANOLAZINE 500 MG TAB.ER.12H PO (15:12)
--- NOTE | 2024-04-18 16:38 | PC.NURSE ---
Pt A&Ox3, pt unsure of time. Attempted to dangle at bedside with assistance but unable to sit at edge of bed d/t weakness in upper body. Pt lay back in bed, trying to use urinal. Copious maroon liquid stool, assisted in cleaning and changing bedding. Pt reports inability to void, bladder scan shows 450mL, provider notified. New orders received. Care ongoing.
[2024-04-18] MEDS: ONDANSETRON 4 MG/2 ML INJ IV (17:12)
[2024-04-18] MEDS: INSULIN LISPRO 100 UNIT/ML 3ML VIAL SUBCUT ×2 (17:27→20:03)
[2024-04-18 21:05] LABS: Hematocrit 28.4 % (41-53); Hemoglobin 9.8 g/dL (13.5-17.5)
[2024-04-18] MEDS: SODIUM CHLORIDE 0.9% 1,000 ML 1000 ML IV (22:00)
[2024-04-18] MEDS: PANTOPRAZOLE 40 MG VIAL IV (22:05)
[2024-04-19] VITALS (19 sets, daily range): BP systolic 80–125; BP diastolic 40–84; PULSE 96–111; RESP 16–97; TEMP 36–37.9; O2SAT 93–99
[2024-04-19 01:56] LABS: Hematocrit 25.6 % (41-53); Hemoglobin 8.7 g/dL (13.5-17.5)
[2024-04-19 02:33] LABS: BUN Creatinine Ratio 49.4 (6-22); Blood Urea Nitrogen 44 mg/dL (9-20); Calcium 8.1 mg/dL (8.4-10.2); Carbon Dioxide 22 mmol/L (22-32); Chloride 111 mmol/L (98-107); Estimated Glomerular Filt Rate > 60 mL/min (>60); Glucose 178 mg/dL (80-110); HEMOLYSIS < 15 (0-50); Potassium 4.1 mmol/L (3.4-5.1); Sodium 136 mmol/L (137-145)
--- NOTE | 2024-04-19 07:28 | PM.PN.1 ---
Subjective Subjective Interval history: Summary: Admitted with a melanotic bleed, this appears to have clinically stopped. Hemoglobin is stable. History of a recent NSTEMI. S: No abdominal pain or nausea. He did have 2 maroon bowel movements this morning. Hemoglobin is stable. Exam Vital Signs (past 8 hours): - 04/19/24 00:00 04/19/24 04:00 Temperature 97.7 F 97.6 F Pulse Rate 111 H 96 H Respiratory Rate 18 18 Blood Pressure 117/74 99/64 Pulse Oximetry 95 99 Oxygen Flow Rate 0 0 Oxygen Delivery Method Room Air Oxygen Flow Rate 0 Narrative Exam Narrative: NAD, alert and oriented. Fluent speech. Lungs are clear, normal rate and effort. Heart is regular, no murmur gallop or rub. Abdomen is soft, non distended. Extremities are free of edema. Objective ECG Impression: Sinus rhythm with 1st degree AV block Left axis deviation Nonspecific intraventricular conduction delay Labs 04/19/24 08:00 04/19/24 08:00 Labs: Laboratory Results - last 24 hr 04/18/24 04/18/24 04/18/24 06:58 07:15 09:00 Hgb 11.4 L Hct 33.6 L Sodium Potassium Chloride Carbon Dioxide BUN Creatinine Estimated GFR BUN/Creatinine Ratio Glucose Lactate 1.8 Calcium Total Creatine Kinase 59 Troponin I 0.024 Blood Type A Positive Antibody Screen Positive Antibody Identification Anti-Fya 04/18/24 04/18/24 04/19/24 10:55 20:55 01:30 Hgb 11.6 L 9.8 L 8.7 L Hct 33.5 L 28.4 L 25.6 L Sodium 136 L Potassium 4.1 Chloride 111 H Carbon Dioxide 22 BUN 44 H Creatinine 0.89 Estimated GFR > 60 BUN/Creatinine Ratio 49.4 H Glucose 178 H Lactate Calcium 8.1 L Total Creatine Kinase Troponin I Blood Type Antibody Screen Antibody Identification [facility] Social History household members: spouse Smoking Status: Never smoker Assessment & Plan Assessment & Plan narrative: 1. Upper GI bleed with melena, present on admission and active. 2. CAD, present on admission and stable. On chronic Plavix. 3. Mild aortic stenosis, present on admission and stable. 4. DM 2, present on admission and stable. 5. Obesity class 2 with BMI of 35.8, present on admission and active. Plan: -IV ppi, Protonix 40 IV q.12 hours. -general surgery following -no endoscopy at this point. -discussed with Cardiology at [facility], we will hold dual antiplatelets, and when stable we will resume only aspirin. No further need for Plavix. -serial hemoglobin and blood support as needed. Full resuscitation, he was a POLST which is dated April 08, 2024. Anticipate 2 midnights length of hospitalization, supports inpatient status. REJI: April 20 or . He requires at least another midnight of ongoing hospital care, inpatient status as supported.. Time-Based Coding :: [TOTAL MINUTES] spent with patient and on the chart (including review of chart, obtaining history, exam, reviewing outside data, placing orders, documenting exam and treatment plan, and counseling patient) on [DATE]. Quality VTE Deep Vein Thrombosis/Pulmonary Embolism Present on Admission: No
[2024-04-19 08:14] LABS: Hematocrit 25.5 % (41-53); Hemoglobin 8.7 g/dL (13.5-17.5)
[2024-04-19] MEDS: TAMSULOSIN 0.4 MG CAPSULE PO (08:23)
[2024-04-19] MEDS: DULOXETINE 30 MG CAPSULE PO (08:23)
[2024-04-19] MEDS: EZETIMIBE 10 MG TABLET PO (08:24)
[2024-04-19] MEDS: PANTOPRAZOLE 40 MG VIAL IV ×2 (08:24→23:19)
[2024-04-19] MEDS: RANOLAZINE 500 MG TAB.ER.12H PO ×2 (08:25→20:28)
[2024-04-19] MEDS: ACETAMINOPHEN 325 MG TABLET 650 MG PO ×2 (08:25→20:28)
[2024-04-19] MEDS: LEVOTHYROXINE 100 MCG TABLET PO (08:25)
[2024-04-19] MEDS: ATORVASTATIN 20 MG TABLET 80 MG PO (08:26)
[2024-04-19] MEDS: buPROPion XL 150 MG TAB PO (08:27)
[2024-04-19 08:29] LABS: BUN Creatinine Ratio 43.7 (6-22); Blood Urea Nitrogen 38 mg/dL (9-20); Carbon Dioxide 23 mmol/L (22-32); Chloride 111 mmol/L (98-107); Estimated Glomerular Filt Rate > 60 mL/min (>60); Glucose 170 mg/dL (80-110); HEMOLYSIS < 15 (0-50); Potassium 4.1 mmol/L (3.4-5.1); Sodium 138 mmol/L (137-145)
--- NOTE | 2024-04-19 08:39 | P.PN_ITS ---
Subjective Subjective Date Patient Seen: 04/19/24 Time Patient Seen: 13:39 Exam Vital Signs (past 8 hours): - 04/19/24 04:00 04/19/24 08:00 Temperature 97.6 F 97.5 F L Pulse Rate 96 H 104 H Respiratory Rate 18 20 Blood Pressure 99/64 125/75 Pulse Oximetry 99 99 Oxygen Flow Rate 0 0 Oxygen Delivery Method Room Air Oxygen Flow Rate 0 Narrative Exam Narrative: Abdomen NT ND Positive BS, no organomegaly. Objective Labs 04/19/24 08:00 04/19/24 08:00 Labs: Laboratory Results - last 24 hr 04/18/24 04/18/24 04/18/24 06:58 07:15 09:00 Hgb 11.4 L Hct 33.6 L Sodium Potassium Chloride Carbon Dioxide BUN Creatinine Estimated GFR BUN/Creatinine Ratio Glucose Lactate 1.8 Calcium Total Creatine Kinase 59 Troponin I 0.024 Antibody Identification Anti-Fya 04/18/24 04/18/24 04/19/24 10:55 20:55 01:30 Hgb 11.6 L 9.8 L 8.7 L Hct 33.5 L 28.4 L 25.6 L Sodium 136 L Potassium 4.1 Chloride 111 H Carbon Dioxide 22 BUN 44 H Creatinine 0.89 Estimated GFR > 60 BUN/Creatinine Ratio 49.4 H Glucose 178 H Lactate Calcium 8.1 L Total Creatine Kinase Troponin I Antibody Identification 04/19/24 08:00 Hgb 8.7 L Hct 25.5 L Sodium 138 Potassium 4.1 Chloride 111 H Carbon Dioxide 23 BUN 38 H Creatinine 0.87 Estimated GFR > 60 BUN/Creatinine Ratio 43.7 H Glucose 170 H Lactate Calcium 8.0 L Total Creatine Kinase Troponin I Antibody Identification [facility] Social History household members: spouse Smoking Status: Never smoker Assessment & Plan Assessment and plan (1) Melena: Problem details: He had GI bleed, from the antiplatelet s - for his CAD not candidate for re- surgery.. Re-CABG.. No ongoing bleeding his Hb twice was 11+, BUT he needs CARDIOLOGY consult to tailor his antiplatelet s for his CAD.. I will follow, but he does NOT need a colonoscopy, his last one was NORMAL 2 years ago, and his next due one is 2031. He also had an EGD 2012 that was normal as well, and NO symptoms to suggest PUD. Continue to monitor H&H and transfuse if less than 7~8gm%. 04/19/24: His Hb is stable, I do not think he is actively bleeding anymore, will continue to check his H&Hs, and transfuse if drops less than 7gm%. I ordered a CBC stat at 2 pm, and made him NPO, now TILL the result of the CBC, ONLY IF Hb drops more, I will do emergency EGD, otherwise he can eat as soon as the H&H results and not dropping. Status: Acute Time-Based Coding :: [TOTAL MINUTES] spent with patient and on the chart (including review of chart, obtaining history, exam, reviewing outside data, placing orders, documenting exam and treatment plan, and counseling patient) on [DATE]. Quality VTE Deep Vein Thrombosis/Pulmonary Embolism Present on Admission: No
--- NOTE | 2024-04-19 10:05 | DI.RAD.S_ITS ---
PROCEDURE: XR CHEST 1V INDICATIONS: cough, congestion TECHNIQUE: One view of the chest was acquired. COMPARISON: [facility], CT, CT CHEST W CON, 07/22/2022, 13:49. FINDINGS: Surgical changes and devices: Surgical clips at the superior right lateral mediastinal border previously present on CT scanning from 07/22/22. 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 No intervening chest plain film or CT is available for review but presumably the operative procedure was performed elsewhere. Lungs and pleura: Lungs are clear. No pleural effusions or pneumothorax. Mediastinum: Mediastinal contours appear normal. Heart size is normal. Bones and chest wall: No suspicious bony lesions. Overlying soft tissues appear unremarkable. 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 No sign of pneumonia. A more accurate assessment of the cardiac and mediastinal borders could be obtained with contrast-enhanced CT scanning if clinically indicated. Dictated by: Ramiro Ruffin M.D. on 04/19/2024 at 13:19 Approved by: Ramiro Ruffin M.D. on 04/19/2024 at 13:22
[2024-04-19] MEDS: SODIUM CHLORIDE 0.9% 1,000 ML 50 ML IV ×2 (10:54→18:18)
[2024-04-19] MEDS: CALCIUM CARBONATE 500 MG TAB 1000 MG PO (11:25)
[2024-04-19] MEDS: HYDROCODONE/ACET 5/325 TABLET 1 TAB PO (11:27)
[2024-04-19] MEDS: INSULIN LISPRO 100 UNIT/ML 3ML VIAL SUBCUT ×3 (11:31→21:18)
--- NOTE | 2024-04-19 11:56 | CM.DANOTE ---
DCP Assessment Note: Pt is a 74yo male, resident of [place], is admitted for melena. Pt has a hx of NSTEMI (was admitted at [facility] for this) and suspicions of Parkinson's Disease. Pt's Primary Care Provider is Dr. Anshu Lugo MD and insurance is [employer]. Reviewed chart and team rounds for pt's medical status and initial discharge needs. Per hospitalist, pt would need a few more days of monitoring H/H, possible colonoscopy. DCP met w/patient at bedside; introduced self and role. Present in the room is pt's daughter, Luci - pt just left the room. Patient was found in bed, asleep for most of the assessment and consented for this DCP to speak with daughter. Pt dtr was able to give brief summary and reports from pt of pt's baseline. It is reported that pt is mainly dependent on others for ADLs and utilizes a FWW at baseline. Pt daughter reports a pt was recently seen by a neurologist who stated pt has most criteria for a Parkinson's Disease dx and two days later, pt had RI. Pt daughter explained that family is anticipating a discharge to a residential care facility after this admission. Dtr explains there is no facility preference identified at this time, would appreciate [facility] referral. DCP provided contact to [facility] (Radha Reyez RN) to begin initial consultation. Plan: Anticipating [facility] care placement coordination with family, medical work up still in process. CM team will follow closely for coordination of discharge plans. Aggie Martínez [facility] Discharge Planning/Care Management CM Discharge Assessment Start: 04/19/24 11:47 Freq: Status: Active Protocol: Document 04/19/24 11:47 MW (Rec: 04/19/24 11:56 MW [id number]) Discharge Planning Assessment Assigned Room Cleaner MARYCRUZ Marcial DPOA/Assigned Designee Name Myrtle, Spouse Contact Information [phone] Advance Directives? No History Provided By Patient,Family Member,Medical Record Prior Living Arrangements House Comment [place] Household Members spouse Type of transporation used prior to Relies on Others admit Facility Name Admitted From: [facility] Willing to Return to Facility? Yes: Staying after post-RI hospitilization Independent with ADL's No Is patient alert and oriented? Yes Needs Assistance With Bathing,Grooming,Meal Prep, Toileting,Managing Medications ,Home Chores / Shopping Caregiver for Another No DME Already Rented / Owned FWW / Walker Patient/Family Preference LTAC Barriers to Discharge No Discharge Plan Industrial Hygiene Technician Care Facility Transportation Arrangement Pending dispo - family vs. facility Referrals Initiated Other Additional Comment [facility] Industrial Hygiene Technician Compliance Testing Analyst Whiteboard Updated in Patient Room with Yes name and ext. # of Room Cleaner Comment [phone] Review Status In Process Please Provide Date Initial DC 04/19/24 Assessment Was Performed Next Review Type Continued Stay Review
[2024-04-19 12:32] LABS: Adenovirus Not Detected (Not Detect); B. parapertussis Not Detected (Not Detecte); Bordetella pertussis Not Detected (Not Detect); Chlamydophila pneumoniae Not Detected (Not Detect); Coronavirus 229E Not Detected (Not Detect); Coronavirus HKU1 Not Detected (Not Detect); Coronavirus NL 63 Not Detected (Not Detect); Coronavirus OC43 Not Detected (Not Detect); Human Metapneumovirus Not Detected (Not Detect); Human Rhinovirus/Enterovirus Not Detected (Not Detect); Influenza A Not Detected (Not Detect); Influenza B Not Detected (Not Detect); Mycoplasma pneumoniae Not Detected (Not Detect); Parainfluenza Virus 1 Not Detected (Not Detect); Parainfluenza Virus 2 Not Detected (Not Detect); Parainfluenza Virus 3 Not Detected (Not Detect); Parainfluenza Virus 4 Not Detected (Not Detect); Respiratory Syncytial Virus Not Detected (Not Detect); SARS- CoV-2 Not Detected (Not Detecte)
[2024-04-19 14:06] LABS: Hemoglobin 7.1 g/dL (13.5-17.5); Mean Corpuscular HGB Conc 33.8 % (30-36); Mean Corpuscular Hemoglobin 32.5 PG (26-34); Mean Corpuscular Volume 96.3 fL (80-100); Platelet Count 220 X10^3/uL (150-400); Red Blood Cell Count 2.17 X10^6/uL (4.5-5.9); Red Cell Distribution Width 13.1 % (11.6-14.8); White Blood Cell Count 18.8 X10^3/uL (4.5-11.0)
[2024-04-19 14:17] LABS: Hematocrit 20.9 % (41-53)
--- NOTE | 2024-04-19 16:37 | PC.NURSE ---
Addendum entered by Rahel Cabrera R.N. 04/19/24 18:57: Patient returned from PACU at 1800, A&OX4, VSS on RA. Original Note: Patient has x2 large maroon colored stools this a.m. upon H/H recheck this afternoon HCT critical at 20.9 and HGB 7.1. notified and lab informed that patient has antibodies. Requested blood transport request from outer facility from lab. at bedside discussing plan with and daughter. Patient will get endoscopy this afternoon. He is transported via bed to [facility] at approximately 1630.
--- NOTE | 2024-04-19 17:22 | P.OP.EGD_ITS ---
Operative Date/Time/Diagnoses Date of procedure: 04/19/24 Time of procedure: 17:23 Pre-op diagnosis: R/o gastric bleed Post-op diagnosis: same Procedure & Clinicians Study performed: EGD Same procedure as scheduled: Yes Surgeon: Hugo Spear Procedure Notes Procedure in detail: OPERATIVE / PROCEDURE NOTE Royal Elizabeth Chan, 1950, 74,Male,CSN: [id number] 04/19/24 PREOPERATIVE DIAGNOSES: low Hb, and melanotic stools, r/o Upper GI bleed.. POSTOPERATIVE DIAGNOSES: Same + NO upper GI bleed what so ever.. all the way to the 3rd portion of the duodenum. FINDINGS: Esophagogastroduodenoscopy performed all the way through the third portion of the duodenum. Z-line was at 40 cm from the greater incisors level. No GERD stigmata noted. No obvious hiatal hernia. No changes suspicious for reflux esophagitis. No gastritis. No peptic ulcer disease. No biliary reflux. PROCEDURE DONE: Esophagogastroduodenoscopy all the way to the third portion of the duodenum. SEO EXECUTIVE: None. ANESTHESIA: MAC per anesthesia. SPECIMEN: None. ESTIMATED BLOOD LOSS: None. COMPLICATIONS: None. CONDITION: Stable to the PACU. OPERATIVE DESCRIPTION: After appropriate informed consent was signed by the patient knowing all of the risks, benefits, potential complications, and possible alternatives of the procedure, the patient was properly identified in the holding area. Royal Elizabeth Chan was taken to the GI suite and after institution of gentle IV sedation, he was placed on his left lateral decubitus position in reverse Trendelenburg position. The EGD Olympus scope was placed into his mouth and under direct visualization was advanced. The vocal cords were identified. No stigmata of reflux laryngitis noted. The esophagus was intubated. Z-line was at 40 cm from the superior incisors level. No stigmata of reflux esophagitis. No changes suspicious of Barretts esophagitis noted. The stomach was intubated. Healthy looking mucosa was identified. No ulcers. No gastritis. The pylorus was intubated all the way to the third portion of the duodenum. No postpyloric abnormalities noted including the ampulla and periampullary regions. The scope was retracted back into the stomach and retroflexed. No evidence of hiatal hernia identified. No biliary reflux was noted. The stomach was decompressed and the scope was retracted out uneventfully. The patient tolerated the procedure well without any complication and was sent to PACU in stable condition. Findings: other findings Specimen(s): none sent Complications: none Post-procedure Follow up: as needed Disposition: Acute Care
[2024-04-20] VITALS (9 sets, daily range): BP systolic 87–101; BP diastolic 50–64; PULSE 70–100; RESP 16–20; TEMP 35.6–37.2; O2SAT 94–98
[2024-04-20 01:01] LABS: Hematocrit 21.4 % (41-53); Hemoglobin 7.4 g/dL (13.5-17.5)
--- NOTE | 2024-04-20 02:02 | PC.NURSE ---
1 hour after first packed RBC transfused, H/h 7.4/21.4. score caller hospitalist Dr. Hawkins ordered another unit. Per lab, we only had the one unit to give this patient, if needing more dr needs to get in touch with [facility] pathologist. Made dr. hawkins aware of this. Second unit of blood will not be transfused, as there is no compatible blood to transfuse
[2024-04-20] MEDS: LEVOTHYROXINE 100 MCG TABLET PO (06:12)
[2024-04-20 06:18] LABS: Hemoglobin 7.1 g/dL (13.5-17.5); Mean Corpuscular HGB Conc 34.5 % (30-36); Mean Corpuscular Hemoglobin 32.8 PG (26-34); Mean Corpuscular Volume 95.1 fL (80-100); Platelet Count 194 X10^3/uL (150-400); Red Blood Cell Count 2.17 X10^6/uL (4.5-5.9); Red Cell Distribution Width 13.3 % (11.6-14.8); White Blood Cell Count 16.7 X10^3/uL (4.5-11.0)
[2024-04-20 06:27] LABS: BUN Creatinine Ratio 33.8 (6-22); Blood Urea Nitrogen 26 mg/dL (9-20); Calcium 8.2 mg/dL (8.4-10.2); Carbon Dioxide 22 mmol/L (22-32); Chloride 110 mmol/L (98-107); Estimated Glomerular Filt Rate > 60 mL/min (>60); Glucose 161 mg/dL (80-110); HEMOLYSIS < 15 (0-50); Potassium 4.1 mmol/L (3.4-5.1); Sodium 136 mmol/L (137-145)
[2024-04-20 06:34] LABS: Hematocrit 20.7 % (41-53)
--- NOTE | 2024-04-20 07:16 | P.PN_ITS ---
Subjective Subjective Interval history: Summary: The patient presented with melena. Endoscopy was negative yesterday. He has for antibodies in blood and only had 1 unit available from blood [facility] which was given on April 19. He was hemoglobin is 7.1 this morning. He developed chest pain around 9:15 a.m.. ECG was static. Subjective: No bleeding overnight, chest pain has dissipated. Exam Vital Signs (past 8 hours): - 04/19/24 23:26 04/20/24 00:46 04/20/24 04:00 Temperature 97.3 F L 98.6 F 98.9 F Pulse Rate 105 H 96 H 95 H Respiratory Rate 18 20 20 Blood Pressure 97/55 L 93/57 L 101/64 Pulse Oximetry 95 95 Oxygen Flow Rate 0 0 Oxygen Delivery Method Room Air Oxygen Flow Rate 0 Narrative Exam Narrative: NAD, alert and oriented. Fluent speech. Lungs are clear, normal rate and effort. Heart is regular, no murmur gallop or rub. Abdomen is soft, non distended. Extremities are free of edema. Objective ECG Impression: Normal sinus rhythm, no acute changes. Labs 04/20/24 05:20 04/20/24 05:20 Labs: Laboratory Results - last 24 hr 04/18/24 04/19/24 04/19/24 07:15 08:00 10:50 WBC RBC Hgb 8.7 L Hct 25.5 L MCV MCH MCHC RDW Plt Count Sodium 138 Potassium 4.1 Chloride 111 H Carbon Dioxide 23 BUN 38 H Creatinine 0.87 Estimated GFR > 60 BUN/Creatinine Ratio 43.7 H Glucose 170 H Calcium 8.0 L Chlamy pneumoniae PCR Not detected Adenovirus (PCR) Not detected B. pertussis DNA (PCR) Not detected B.parapertussis DNA PCR Not detected Coronavirus OC43 (PCR) Not detected Coronavirus HKU1 (PCR) Not detected Coronavirus 229E (PCR) Not detected SARS-CoV-2 (PCR) Not detected Coronavirus NL63 (PCR) Not detected Human Metapneumovir PCR Not detected Influenza Type A (PCR) Not detected Influenza Type B (PCR) Not detected M. pneumoniae (PCR) Not detected Parainfluenza 1 (PCR) Not detected Parainfluenza 2 (PCR) Not detected Parainfluenza 3 (PCR) Not detected Parainfluenza 4 (PCR) Not detected RSV (PCR) Not detected Entero/Rhino (PCR) Not detected Blood Type A Positive Antibody Screen Positive Antibody Identification Anti-Fya Crossmatch See Detail 04/19/24 04/20/24 04/20/24 13:55 00:47 05:20 WBC 18.8 H 16.7 H RBC 2.17 L 2.17 L Hgb 7.1 L 7.4 L 7.1 L Hct 20.9 L* 21.4 L 20.7 L* MCV 96.3 95.1 MCH 32.5 32.8 MCHC 33.8 34.5 RDW 13.1 13.3 Plt Count 220 194 Sodium 136 L Potassium 4.1 Chloride 110 H Carbon Dioxide 22 BUN 26 H Creatinine 0.77 Estimated GFR > 60 BUN/Creatinine Ratio 33.8 H Glucose 161 H Calcium 8.2 L Chlamy pneumoniae PCR Adenovirus (PCR) B. pertussis DNA (PCR) B.parapertussis DNA PCR Coronavirus OC43 (PCR) Coronavirus HKU1 (PCR) Coronavirus 229E (PCR) SARS-CoV-2 (PCR) Coronavirus NL63 (PCR) Human Metapneumovir PCR Influenza Type A (PCR) Influenza Type B (PCR) M. pneumoniae (PCR) Parainfluenza 1 (PCR) Parainfluenza 2 (PCR) Parainfluenza 3 (PCR) Parainfluenza 4 (PCR) RSV (PCR) Entero/Rhino (PCR) Blood Type Antibody Screen Antibody Identification Crossmatch [facility] Social History household members: spouse Smoking Status: Never smoker Assessment & Plan Assessment & Plan narrative: 1. Upper GI bleed with melena, present on admission and active. 2. CAD, present on admission and stable. On chronic Plavix. 3. Mild aortic stenosis, present on admission and stable. 4. DM 2, present on admission and stable. 5. Obesity class 2 with BMI of 35.8, present on admission and active. 6. New chest pain, dissipated. Patient was at high risk for recurrent NSTEMI given his CAD and blood loss anemia. 7. Acute blood loss anemia secondary to GI bleed. New and active. Plan: -IV ppi, Protonix 40 IV q.12 hours. -general surgery following -morphine as needed for pain. -discussed with Cardiology at [facility], we will hold dual antiplatelets, and when stable we will resume only aspirin. No further need for Plavix. -serial hemoglobin. -discussed with [facility] this morning, they are on a national search for units that would be compatible. Discussed with daughter at bedside and patient. There is no clear indication for transfer given his nonoperative approach to CAD, and regional lack of compatible blood. We will continue medical management here and hope for the best. Family agrees with him staying here as well. Full resuscitation, he was a POLST which is dated April 08, 2024. Anticipate 2 midnights length of hospitalization, supports inpatient status. REJI: April 20 or . Time-Based Coding :: [TOTAL MINUTES] spent with patient and on the chart (including review of chart, obtaining history, exam, reviewing outside data, placing orders, documenting exam and treatment plan, and counseling patient) on [DATE]. Quality VTE Deep Vein Thrombosis/Pulmonary Embolism Present on Admission: No
[2024-04-20] MEDS: INSULIN LISPRO 100 UNIT/ML 3ML VIAL SUBCUT ×3 (07:58→16:50)
[2024-04-20] MEDS: EZETIMIBE 10 MG TABLET PO (08:42)
[2024-04-20] MEDS: buPROPion XL 150 MG TAB PO (08:42)
[2024-04-20] MEDS: TAMSULOSIN 0.4 MG CAPSULE PO (08:42)
[2024-04-20] MEDS: DULOXETINE 30 MG CAPSULE PO (08:42)
[2024-04-20] MEDS: PANTOPRAZOLE 40 MG VIAL IV ×2 (08:42→21:48)
[2024-04-20] MEDS: RANOLAZINE 500 MG TAB.ER.12H PO ×2 (08:42→22:29)
[2024-04-20] MEDS: ATORVASTATIN 20 MG TABLET 80 MG PO (08:42)
[2024-04-20] MEDS: METOPROLOL ER 50 MG TABLET 100 MG PO (08:43)
[2024-04-20] MEDS: ACETAMINOPHEN 325 MG TABLET 650 MG PO (08:58)
--- NOTE | 2024-04-20 09:17 | CM.DPC ---
DCP Cont: Per MD and RN, pt needed a unit of blood overnight and monitoring his H&H to determine any further medical interventions. Pt not yet stable for discharge. JUANI met with pt's Dtr Luci who confirms that pt is confused and over the past few months has been waxing and waning with his mentation. They have not discussed the plan of [facility] at d/c with pt yet as they want him to fight and get better and not give up yet and Dtr Luci plans to try to move back to [place] to continue assisting with pt and his spouse and preference is [facility] on [place] or in [place] to be close to spouse. JUANI provided the Senior Resource Guidebook with earmarked GROUP HOME facilities and discussed the difference between Memory Care, GROUP HOME, Senior Living communities. Dtr aware that pt may not make progress due to his comorbidities and understanding that Goals of Care discussion may be needed if pt does not improve. Dtr states that pt has [employer] benefits from his [facility] and they have confirmed that this will likely cover most or all of his Assisted Living costs as spouse is still independent and trying not to have to sell their home yet. Plan: Dtr will begin reviewing and touring some of the Assisted Living Facilities locally to determine preference and await to see if pt begins making medical progress vs need for Goals of Care discussion if pt continues to decline in health. MARYCRUZ Copeland
--- NOTE | 2024-04-20 09:18 | EKG_ITS ---
[id number] [place] [address] Test Date: 2024-04-20 Pat Name: Royal Chan Department: Room: 205 Gender: Male Boat Wrapper: MARGIE : 1950 Requested By: Order Number: [id number] Reading MD: Graham Diaz Measurements Intervals [place] Rate: 92 P: -1 MD: 214 QRS: -33 QRSD: 120 T: 81 QT: 384 QTc: 474 Interpretive Statements Sinus rhythm with 1st degree AV block Left axis deviation Nonspecific intraventricular conduction delay Nonspecific ST abnormality Electronically Signed On 04-20-2024 17:06:05 PST by Graham Diaz
[2024-04-20] MEDS: MORPHINE 2 MG/ML INJ IV (09:32)
--- NOTE | 2024-04-20 10:48 | PC.NURSE ---
Addendum entered by Emilee Santos R.N. 04/20/24 11:49: H/H is 6.9/20.1. Notified Dr. Diaz. CT scan ordered. Original Note: At appx 0910 pt started to complain of chest pain. BP 108/54. This RN notified Dr. Diaz and nursing home aide. STAT EKG was ordered. Dr. Diaz came to bedside to assess patient and ordered PRN morphine, which this RN administered. Pt now sleeping in bed, with daughter at bedside.
[2024-04-20] MEDS: SODIUM CHLORIDE 0.9% 500 ML 1000 ML IV (11:40)
--- NOTE | 2024-04-20 11:41 | P.PN_ITS ---
Exam Vital Signs (past 8 hours): - 04/20/24 04:00 04/20/24 08:00 04/20/24 08:43 Temperature 98.9 F 99.0 F Pulse Rate 95 H 100 H 100 H Respiratory Rate 20 18 Blood Pressure 101/64 101/59 L 101/59 L Pulse Oximetry 95 96 Oxygen Flow Rate 0 0 04/20/24 09:22 04/20/24 11:11 Temperature Pulse Rate 94 H Respiratory Rate Blood Pressure 87/50 L Pulse Oximetry Oxygen Flow Rate Oxygen Delivery Method Room Air Oxygen Flow Rate 0 Objective Labs 04/20/24 05:20 04/20/24 05:20 Labs: Laboratory Results - last 24 hr 04/18/24 04/19/24 04/19/24 07:15 10:50 13:55 WBC 18.8 H RBC 2.17 L Hgb 7.1 L Hct 20.9 L* MCV 96.3 MCH 32.5 MCHC 33.8 RDW 13.1 Plt Count 220 Sodium Potassium Chloride Carbon Dioxide BUN Creatinine Estimated GFR BUN/Creatinine Ratio Glucose Calcium Chlamy pneumoniae PCR Not detected Adenovirus (PCR) Not detected B. pertussis DNA (PCR) Not detected B.parapertussis DNA PCR Not detected Coronavirus OC43 (PCR) Not detected Coronavirus HKU1 (PCR) Not detected Coronavirus 229E (PCR) Not detected SARS-CoV-2 (PCR) Not detected Coronavirus NL63 (PCR) Not detected Human Metapneumovir PCR Not detected Influenza Type A (PCR) Not detected Influenza Type B (PCR) Not detected M. pneumoniae (PCR) Not detected Parainfluenza 1 (PCR) Not detected Parainfluenza 2 (PCR) Not detected Parainfluenza 3 (PCR) Not detected Parainfluenza 4 (PCR) Not detected RSV (PCR) Not detected Entero/Rhino (PCR) Not detected Blood Type A Positive Antibody Screen Positive Antibody Identification Anti-Fya Crossmatch See Detail 04/20/24 04/20/24 00:47 05:20 WBC 16.7 H RBC 2.17 L Hgb 7.4 L 7.1 L Hct 21.4 L 20.7 L* MCV 95.1 MCH 32.8 MCHC 34.5 RDW 13.3 Plt Count 194 Sodium 136 L Potassium 4.1 Chloride 110 H Carbon Dioxide 22 BUN 26 H Creatinine 0.77 Estimated GFR > 60 BUN/Creatinine Ratio 33.8 H Glucose 161 H Calcium 8.2 L Chlamy pneumoniae PCR Adenovirus (PCR) B. pertussis DNA (PCR) B.parapertussis DNA PCR Coronavirus OC43 (PCR) Coronavirus HKU1 (PCR) Coronavirus 229E (PCR) SARS-CoV-2 (PCR) Coronavirus NL63 (PCR) Human Metapneumovir PCR Influenza Type A (PCR) Influenza Type B (PCR) M. pneumoniae (PCR) Parainfluenza 1 (PCR) Parainfluenza 2 (PCR) Parainfluenza 3 (PCR) Parainfluenza 4 (PCR) RSV (PCR) Entero/Rhino (PCR) Blood Type Antibody Screen Antibody Identification Crossmatch [facility] Social History household members: spouse Smoking Status: Never smoker Assessment & Plan Assessment and plan (1) Melena: Problem details: He had GI bleed, from the antiplatelet s - for his CAD not candidate for re- surgery.. Re-CABG.. No ongoing bleeding his Hb twice was 11+, BUT he needs CARDIOLOGY consult to tailor his antiplatelet s for his CAD.. I will follow, but he does NOT need a colonoscopy, his last one was NORMAL 2 years ago, and his next due one is 2031. He also had an EGD 2012 that was normal as well, and NO symptoms to suggest PUD. Continue to monitor H&H and transfuse if less than 7~8gm%. 04/19/24: His Hb is stable, I do not think he is actively bleeding anymore, will continue to check his H&Hs, and transfuse if drops less than 7gm%. I ordered a CBC stat at 2 pm, and made him NPO, now TILL the result of the CBC, ONLY IF Hb drops more, I will do emergency EGD, otherwise he can eat as soon as the H&H results and not dropping. 04/20/24: POD#1 s/p EGD, was NEGATIVE for any stomach or duodenal bleed, and Hb thank God, stable, above 7. Eating fine, I will follow. Status: Acute Time-Based Coding :: [TOTAL MINUTES] spent with patient and on the chart (including review of chart, obtaining history, exam, reviewing outside data, placing orders, documenting exam and treatment plan, and counseling patient) on [DATE]. Quality VTE Deep Vein Thrombosis/Pulmonary Embolism Present on Admission: No
[2024-04-20 11:44] LABS: Hematocrit 20.1 % (41-53); Hemoglobin 6.9 g/dL (13.5-17.5)
--- NOTE | 2024-04-20 11:47 | DI.CT.S_ITS ---
PROCEDURE: CT ANGIO ABDOMEN PELVIS INDICATIONS: GI bleed TECHNIQUE: After the administration of intravenous contrast, 2.5 mm sections acquired from the diaphragm to the iliac crests. 10 mm maximum intensity projection (MIP) coronal and sagittal reformats were then performed. For radiation dose reduction, the following was used: automated exposure control. COMPARISON: [facility], CT, CT ANGIO ABD/PEL GI BLEED, 04/18/2024, 7:45. FINDINGS: Image quality: Diagnostic Lower chest: Basal mild opacities, atelectasis, and bronchial wall thickening, possibly atelectasis and aspiration. Coronary calcifications. 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 Liver: Unremarkable. Suspected steatosis. Gallbladder and biliary system: Mildly distended gallbladder. Mildly distended CBD at 8-9 millimeters, correlate LFTs. Pancreas: No ductal dilation Spleen: Nonenlarged Adrenals: No discrete nodules Kidneys: Scattered renal cysts. No definite solid renal mass. Scattered nonobstructing renal calculi. No hydronephrosis. 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 Moderate SMA narrowing. Occlusion of the proximal HANDY, with distal reconstitution. Abdominal aortic aneurysm with laminar thrombus at 3.5 centimeters as before. IVC filter in place.. [id number] atherosclerotic calcifications of the iliac vessels. 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 Moderate narrowing of the left common iliac artery with calcified and noncalcified plaque. No brisk arterial hemorrhage. No pathologic lymph nodes by size criteria. There is a splenorenal shunt with the small area of contrast seen within the gastric fundus (11/23). Small intraluminal densities also seen in the small bowel, indeterminate for ingested contents, for example image 11/111. Bowel and peritoneum: No evidence of small bowel obstruction. Colonic diverticula are present No drainable abscess or pathologic ascites. Body wall: Small fat containing umbilical hernia. Postsurgical changes. Pelvis: The bladder is not well evaluated. A Irby is in place. Prostate is also not well assessed on this study. Bones: No acute or suspicious osseous finding. IMPRESSION: There is a possible bleeding varix at the gastric fundus adjacent to a splenorenal shunt. No brisk arterial bleeding seen elsewhere. There are colonic diverticula, which can also service of source of lower GI bleed. There are small luminal densities throughout the small bowel for example image 11/111, indeterminate for ingested contents. Consider endoscopic correlation. Abdominal aortic aneurysm. 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 These are either partially or completely thrombosed. Many other findings above. Dictated by: Gabriel Ponce M.D. on 04/20/2024 at 11:50 Approved by: Gabriel Ponce M.D. on 04/20/2024 at 12:02
[2024-04-20 17:35] LABS: Hematocrit 19.5 % (41-53); Hemoglobin 6.7 g/dL (13.5-17.5)
[2024-04-21] VITALS (44 sets, daily range): BP systolic 91–125; BP diastolic 39–68; PULSE 66–80; RESP 15–23; TEMP 36.1–36.3; O2SAT 92–100
[2024-04-21] MEDS: LEVOTHYROXINE 100 MCG TABLET PO (05:46)
[2024-04-21 05:51] LABS: Mean Corpuscular HGB Conc 33.9 % (30-36); Mean Corpuscular Hemoglobin 32.8 PG (26-34); Mean Corpuscular Volume 96.7 fL (80-100); Platelet Count 194 X10^3/uL (150-400); Red Blood Cell Count 1.95 X10^6/uL (4.5-5.9); Red Cell Distribution Width 13.1 % (11.6-14.8); White Blood Cell Count 14.5 X10^3/uL (4.5-11.0)
[2024-04-21 05:53] LABS: Hemoglobin 6.4 g/dL (13.5-17.5)
[2024-04-21 05:54] LABS: BUN Creatinine Ratio 21.5 (6-22); Blood Urea Nitrogen 17 mg/dL (9-20); Calcium 8.2 mg/dL (8.4-10.2); Carbon Dioxide 23 mmol/L (22-32); Chloride 108 mmol/L (98-107); Estimated Glomerular Filt Rate > 60 mL/min (>60); Glucose 145 mg/dL (80-110); HEMOLYSIS < 15 (0-50); Hematocrit 18.8 % (41-53); Potassium 3.9 mmol/L (3.4-5.1); Sodium 135 mmol/L (137-145)
[2024-04-21 06:05] LABS: Troponin I 0.024 ng/mL (0.01-0.034)
--- NOTE | 2024-04-21 06:17 | PC.NURSE ---
land leasing information clerk: Patient is AxOx4, lethargic and speaks softly. Family at the bedside. Reported chest pain that resolved itself within a few minutes, MD notified, Ranolazine given. Cont tele in place. Otherwise denies pain, nausea, dizziness. Patient is on bedrest, unable to lay flat d/t frequent coughing, using suction to clear phlegm with assistance from family. Vital signs stable throughout the night, SpO2 in mid-high 90's on RA. IVF infusing as ordered. Notified MD of critical H/H: 6.4/18.8
--- NOTE | 2024-04-21 07:16 | PM.PN.1 ---
Subjective Subjective Interval history: Hospital course: This patient was admitted with melena. Initially it appeared that his bleed had stopped spontaneously. He was treated with PPI IV b.i.d.. He then developed maroon stools and did have a worsened blood loss anemia. He underwent EGD on April 19 which was unrevealing. His blood counts drifted down to a hemoglobin of 7 and just under 7. He was typed and crossed a early in his admission and found to have for antibodies for blood transfusions and no compatible blood in the entire [facility] except for 1 unit which was given on April 19. Throughout his stay we continue to work with blood work [facility] and obtaining blood through a national search. He did develop some chest pain on the morning of the which improved with metoprolol. He was had soft blood pressures and been receiving intermittent IV fluid boluses. He had a recent admission at [facility] in [place] with an NSTEMI it was discussed with Cardiology on April 18. They recommended holding both antiplatelet agents and resuming only aspirin when medically stable to do so. He was had no recent PCI and was essentially deemed a medical therapy only patient at the time of his NSTEMI. Hemoglobin slightly lower overnight, still no suitable compatible units of blood are available given he was for antibodies. [place] blood work is working on finding blood units nationally. EGD was negative, surgery has decided to prepare him for colonoscopy tomorrow, April 22. I met with the family they understand the plan, and limitations. S: No chest pain, or dyspnea overnight. He was weak. His troponin was unremarkable this morning. Exam Vital Signs (past 8 hours): - 04/21/24 00:00 04/21/24 04:00 04/21/24 06:13 Temperature 97 F L Pulse Rate 73 74 74 Respiratory Rate 18 20 Blood Pressure 91/50 L 100/56 L 117/68 Pulse Oximetry 93 94 94 Oxygen Flow Rate 0 0 Oxygen Delivery Method Room Air Oxygen Flow Rate 0 Narrative Exam Narrative: NAD, alert and oriented. Fluent speech. Pale. Lungs are clear, normal rate and effort. Heart is regular, no murmur gallop or rub. Abdomen is soft, non distended. Extremities are free of edema. Objective Labs 04/21/24 05:20 04/21/24 05:20 Labs: Laboratory Results - last 24 hr 04/20/24 04/20/24 04/21/24 11:25 16:55 05:20 WBC 14.5 H RBC 1.95 L Hgb 6.9 L* 6.7 L* 6.4 L* Hct 20.1 L* 19.5 L* 18.8 L* MCV 96.7 MCH 32.8 MCHC 33.9 RDW 13.1 Plt Count 194 Sodium 135 L Potassium 3.9 Chloride 108 H Carbon Dioxide 23 BUN 17 Creatinine 0.79 Estimated GFR > 60 BUN/Creatinine Ratio 21.5 Glucose 145 H Calcium 8.2 L Troponin I 0.024 [facility] Social History household members: spouse Smoking Status: Never smoker Assessment & Plan Assessment & Plan narrative: 1. Upper GI bleed with melena, present on admission and active. 2. CAD, present on admission and stable. On chronic Plavix. 3. Mild aortic stenosis, present on admission and stable. 4. DM 2, present on admission and stable. 5. Obesity class 2 with BMI of 35.8, present on admission and active. 6. New chest pain, dissipated. Patient was at high risk for recurrent NSTEMI given his CAD and blood loss anemia. 7. Acute blood loss anemia secondary to GI bleed. New and active. Plan: -IV Protonix 40 IV q.12 hours. -prep for colonoscopy 04/22. -morphine as needed for pain. -discussed with Cardiology at [facility], we will hold dual antiplatelets, and when stable we will resume only aspirin. No further need for Plavix. -serial hemoglobin. -discussed with [facility] daily, they are on a national search for units that would be compatible. Full resuscitation, he was a POLST which is dated April 08, 2024. Anticipate 2 midnights length of hospitalization, supports inpatient status. REJI: Unclear, guarded prognosis. Time-Based Coding :: [TOTAL MINUTES] spent with patient and on the chart (including review of chart, obtaining history, exam, reviewing outside data, placing orders, documenting exam and treatment plan, and counseling patient) on [DATE]. Quality VTE Deep Vein Thrombosis/Pulmonary Embolism Present on Admission: No
[2024-04-21] MEDS: INSULIN LISPRO 100 UNIT/ML 3ML VIAL SUBCUT ×3 (07:54→17:42)
--- NOTE | 2024-04-21 08:11 | PM.PN.1 ---
Exam Vital Signs (past 8 hours): - 04/21/24 04:00 04/21/24 06:13 Temperature 97 F L Pulse Rate 74 74 Respiratory Rate 20 Blood Pressure 100/56 L 117/68 Pulse Oximetry 94 94 Oxygen Flow Rate 0 0 Oxygen Delivery Method Room Air Oxygen Flow Rate 0 Objective Labs 04/21/24 05:20 04/21/24 05:20 Labs: Laboratory Results - last 24 hr 04/20/24 04/20/24 04/21/24 11:25 16:55 05:20 WBC 14.5 H RBC 1.95 L Hgb 6.9 L* 6.7 L* 6.4 L* Hct 20.1 L* 19.5 L* 18.8 L* MCV 96.7 MCH 32.8 MCHC 33.9 RDW 13.1 Plt Count 194 Sodium 135 L Potassium 3.9 Chloride 108 H Carbon Dioxide 23 BUN 17 Creatinine 0.79 Estimated GFR > 60 BUN/Creatinine Ratio 21.5 Glucose 145 H Calcium 8.2 L Troponin I 0.024 [facility] Social History household members: spouse Smoking Status: Never smoker Assessment & Plan Assessment and plan (1) Melena: Problem details: He had GI bleed, from the antiplatelet s - for his CAD not candidate for re- surgery.. Re-CABG.. No ongoing bleeding his Hb twice was 11+, BUT he needs CARDIOLOGY consult to tailor his antiplatelet s for his CAD.. I will follow, but he does NOT need a colonoscopy, his last one was NORMAL 2 years ago, and his next due one is 2031. He also had an EGD 2012 that was normal as well, and NO symptoms to suggest PUD. Continue to monitor H&H and transfuse if less than 7~8gm%. 04/19/24: His Hb is stable, I do not think he is actively bleeding anymore, will continue to check his H&Hs, and transfuse if drops less than 7gm%. I ordered a CBC stat at 2 pm, and made him NPO, now TILL the result of the CBC, ONLY IF Hb drops more, I will do emergency EGD, otherwise he can eat as soon as the H&H results and not dropping. 04/20/24: POD#1 s/p EGD, was NEGATIVE for any stomach or duodenal bleed, and Hb thank God, stable, above 7. Eating fine, I will follow. 04/21/24: POD#2 s/p Negative EGD for ANY source of upper GI bleed, all the way to the 3rd portion of the duodenum; Hb still drifting down, and HE NEEDS BLOOD TRANSFUSION, 2 Units, but at least one unit, GENA given his Hb now is 6.4gm%, less than 7.. will bowel prep him today and ask the other surgeon, or GI to do colonoscopy tomorrow.. Case discussed with Dr. Diaz. Status: Acute Time-Based Coding :: [TOTAL MINUTES] spent with patient and on the chart (including review of chart, obtaining history, exam, reviewing outside data, placing orders, documenting exam and treatment plan, and counseling patient) on [DATE]. Quality VTE Deep Vein Thrombosis/Pulmonary Embolism Present on Admission: No
[2024-04-21] MEDS: ATORVASTATIN 20 MG TABLET 80 MG PO (08:30)
[2024-04-21] MEDS: EZETIMIBE 10 MG TABLET PO (08:30)
[2024-04-21] MEDS: buPROPion XL 150 MG TAB PO (08:30)
[2024-04-21] MEDS: RANOLAZINE 500 MG TAB.ER.12H PO ×2 (08:31→20:14)
[2024-04-21] MEDS: DULOXETINE 30 MG CAPSULE PO (08:31)
[2024-04-21] MEDS: TAMSULOSIN 0.4 MG CAPSULE PO (08:31)
[2024-04-21] MEDS: PANTOPRAZOLE 40 MG VIAL IV ×2 (08:32→20:14)
[2024-04-21] MEDS: PEG3350/SOD SULF,BICARB,CL/KCL 4,000 ML SOLUTION 4000 ML PO (09:20)
[2024-04-21] MEDS: ALBUMIN HUMAN 25 GM/100 ML VIAL IV (09:31)
[2024-04-21] MEDS: ONDANSETRON 4 MG/2 ML INJ IV (11:13)
--- NOTE | 2024-04-21 12:53 | CM.DPNOTE ---
DCP Cont Reviewed chart. Patient discussed in multidisciplinary rounds. Patient with acute blood loss anemia due to GI bleed and requires transfusion; According to Dr Diaz, patient requires a uniquely compatible blood type which is limited in the entire [facility] region except for 1 unit which was given on April 19. Dr Diaz consulting with blood works [facility] daily. Patient is scheduled for colonoscopy tomorrow. Prognosis is guarded. Patient remains a full code. CM team following clinical course closely. DCP depends on needs closer to discharge. DEXTER
[2024-04-21] MEDS: SODIUM CHLORIDE 0.9% 1,000 ML 50 ML IV (17:21)
--- NOTE | 2024-04-21 18:32 | PC.NURSE ---
Assumed care of pt during afternoon. Pt stable upon transfer on 2L NC. BP stable. Family at bedside, updated throughout shift. Pt unable to tolerate GI prep with N/V despite PRN medication administration.
[2024-04-21] MEDS: HYDROCODONE/ACET 5/325 TABLET 1 TAB PO (20:33)
[2024-04-22] VITALS (84 sets, daily range): BP systolic 68–127; BP diastolic 30–61; PULSE 65–75; RESP 14–29; TEMP 36.1–36.8; O2SAT 92–100
[2024-04-22 06:19] LABS: Mean Corpuscular Hemoglobin 33.2 PG (26-34); Mean Corpuscular Volume 97.7 fL (80-100); Platelet Count 191 X10^3/uL (150-400); Red Blood Cell Count 1.91 X10^6/uL (4.5-5.9); Red Cell Distribution Width 13.6 % (11.6-14.8); White Blood Cell Count 11.3 X10^3/uL (4.5-11.0)
[2024-04-22 06:24] LABS: Hematocrit 18.6 % (41-53); Hemoglobin 6.3 g/dL (13.5-17.5)
[2024-04-22] MEDS: LEVOTHYROXINE 100 MCG TABLET PO (06:42)
--- NOTE | 2024-04-22 06:47 | PC.NURSE ---
Sil[employer]aker Note-At beginning of shift patient was very drowsy, oriented x2-3. [place] given for headache, he slept through the night. SR, BP stable-see vital trends. No stools or signs of bleeding. Cony in lab called to report unit of PRBC arrived, recommended to infuse during day shift when and more staff available d/t high risk transfusion reaction. ICU RNs agreed, patient is sleeping and stable. Patient woke, oriented x3, using call light appropriately, denies pain.
[2024-04-22] MEDS: PANTOPRAZOLE 40 MG VIAL IV ×2 (08:48→20:33)
[2024-04-22] MEDS: INSULIN LISPRO 100 UNIT/ML 3ML VIAL SUBCUT ×3 (08:50→17:12)
[2024-04-22] MEDS: TAMSULOSIN 0.4 MG CAPSULE PO (08:52)
[2024-04-22] MEDS: ATORVASTATIN 20 MG TABLET 80 MG PO (08:52)
[2024-04-22] MEDS: METOPROLOL ER 50 MG TABLET 100 MG PO (08:52)
[2024-04-22] MEDS: RANOLAZINE 500 MG TAB.ER.12H PO ×2 (08:52→20:34)
[2024-04-22] MEDS: DULOXETINE 30 MG CAPSULE PO (08:52)
[2024-04-22] MEDS: EZETIMIBE 10 MG TABLET PO (08:52)
[2024-04-22] MEDS: buPROPion XL 150 MG TAB PO (08:52)
--- NOTE | 2024-04-22 10:48 | DIET.CONS ---
Dietary Consultation Note Admission Date: 04/18/2024 09:31 Assessment: 74 y M admitted for melena. RD consulted for weight loss. PMH of DM2, s/p CABG 2 wks ago, was at [facility] previous to admission. EGD negative for upper GI bleed per surgery note. Colonoscopy planned for today but per team rounds, pt to receive 1 unit blood today and had difficulty tolerating bowel prep. Pt was on fulls/general diet order from lunch of /3 through breakfast of 04/21. Was switched to clears. Met with pt at bedside and spouse who reports about a 20 lb weight loss since his admission at [facility] on Apr 03. Went to [facility] where he reports he was eating meals there, but did not like the food. Nutrition focused physical exam performed with only mild muscle mass loss in deltoid noted, but pt not able to sit up fully for exam, was reclined. Ht: 175.26 cm Wt: 110 kg BMI: 35.8 UBW: 119.55 kg per spouse 1 month ago (-8% loss within 1 month, severe) Last BM: 04/19/24 (04/19/24 09:52) MNA: 10 Kevin Score: 14 Diet: 04/21/24 Lunch Clear Liquid Diet Diet Modifications: Nutrition Percent Meal Consumed 10 04/20/24 13:06 Labs: RBC 1.91 X10^6/uL (4.5-5.9) L 04/22/24 06:00 Hgb 6.3 g/dL (13.5-17.5) L* 04/22/24 06:00 Hct 18.6 % (41-53) L* 04/22/24 06:00 Creatinine 0.79 mg/dL (0.66-1.25) 04/21/24 05:20 Lactate 1.8 mmol/L (0.7-2.1) 04/18/24 09:00 Nutrition Diagnosis: Unintentional weight loss related to recent hospital admissions aeb -8% weight loss (severe) Interventions: 1. Surgery/hospitalist to advance diet depending on plan of care. ONS option with meals if clear or full liquid diet order and not doing colonoscopy EER: 2000 kcals (MSJx1.25 vs 15 kcals/kg per BMI) 80-90 g (1-1.2 g/kg) Monitoring/Evaluations: diet, po intakes, plan of care Electronically Signed by: Whit Foreman 04/22/24 10:48 Clinical Dietitian [address] [address]
[2024-04-22 14:06] LABS: Hemoglobin 7.1 g/dL (13.5-17.5)
[2024-04-22 14:13] LABS: Hematocrit 20.9 % (41-53)
--- NOTE | 2024-04-22 17:52 | PC.NURSE ---
Day Shift Note Patient alert and oriented to self and place, forgetful at times. Denies pain. Denies shortness of breath, weaned to RA this morning, SpO2 93-96%. SR in the 70s. BP has been stable, lowest BP 90s/50s. Pt received 1 unit PRBCs today, tolerated well without any issues. Pt with intermittent cough, reports cough is not new but is worse than normal, lungs clear bilaterally, MD aware. Irby in place and draining clear giancarlo urine. POA paperwork received from [facility] and placed in chart. Family at bedside and updated on plan of care.
--- NOTE | 2024-04-22 19:17 | PM.PN.1 ---
Subjective Subjective Interval history: Hospital course: This patient was admitted with melena. Initially it appeared that his bleed had stopped spontaneously. He was treated with PPI IV b.i.d.. He then developed maroon stools and did have a worsened blood loss anemia. He underwent EGD on April 19 which was unrevealing. His blood counts drifted down to a hemoglobin of 7 and just under 7. He was typed and crossed a early in his admission and found to have for antibodies for blood transfusions and no compatible blood in the entire [facility] region except for 1 unit which was given on April 19. Throughout his stay we continue to work with blood work [facility] and obtaining blood through a national search. He did develop some chest pain on the morning of the which improved with metoprolol. He has had soft blood pressures and been receiving intermittent IV fluid boluses. He had a recent admission at [facility] in [place] with an NSTEMI it was discussed with Cardiology on April 18. They recommended holding both antiplatelet agents and resuming only aspirin when medically stable to do so. He was had no recent PCI and was essentially deemed a medical therapy only patient at the time of his NSTEMI. He was also recently told by neurologist he had parkinson's. His Hg continued to trend down, he did get 1U PRBC today. S: No complaints today, he feels okay, still weak. Discussed goals of care extensively with family as summarized below. Exam Vital Signs (past 8 hours): - 04/22/24 11:30 04/22/24 11:45 04/22/24 12:00 Temperature 98.1 F Pulse Rate 67 68 Respiratory Rate 20 21 Blood Pressure Pulse Oximetry 96 96 04/22/24 12:00 04/22/24 12:00 04/22/24 12:15 Temperature Pulse Rate 65 67 Respiratory Rate 19 19 Blood Pressure 99/56 L Pulse Oximetry 95 96 04/22/24 12:30 04/22/24 12:45 04/22/24 12:50 Temperature 97.7 F Pulse Rate 67 68 69 Respiratory Rate 21 21 20 Blood Pressure 99/56 L Pulse Oximetry 95 97 04/22/24 13:00 04/22/24 13:15 04/22/24 13:30 Temperature Pulse Rate 69 69 69 Respiratory Rate 22 23 18 Blood Pressure Pulse Oximetry 95 97 97 04/22/24 13:45 04/22/24 14:00 04/22/24 14:01 Temperature Pulse Rate 67 69 Respiratory Rate 17 22 Blood Pressure 93/49 L Pulse Oximetry 97 97 04/22/24 14:01 04/22/24 14:15 04/22/24 14:30 Temperature Pulse Rate 70 70 67 Respiratory Rate 23 21 24 Blood Pressure Pulse Oximetry 96 96 95 04/22/24 14:45 04/22/24 15:00 04/22/24 15:00 Temperature Pulse Rate 70 68 Respiratory Rate 25 H 23 Blood Pressure 90/51 L Pulse Oximetry 96 96 04/22/24 15:15 04/22/24 15:30 04/22/24 15:45 Temperature Pulse Rate 68 69 67 Respiratory Rate 28 H 29 H 22 Blood Pressure Pulse Oximetry 97 96 94 04/22/24 16:00 04/22/24 16:00 04/22/24 16:00 Temperature 97.8 F Pulse Rate 66 Respiratory Rate 26 H Blood Pressure 107/61 Pulse Oximetry 95 04/22/24 16:15 04/22/24 16:30 04/22/24 16:45 Temperature Pulse Rate 65 66 66 Respiratory Rate 26 H 21 20 Blood Pressure Pulse Oximetry 95 96 96 04/22/24 17:00 04/22/24 17:01 04/22/24 17:01 Temperature Pulse Rate 66 70 Respiratory Rate 19 28 H Blood Pressure 116/56 L Pulse Oximetry 94 96 04/22/24 17:15 04/22/24 17:30 04/22/24 17:45 Temperature Pulse Rate 69 69 71 Respiratory Rate 29 H 25 H 25 H Blood Pressure Pulse Oximetry 95 95 95 04/22/24 18:00 04/22/24 18:00 Temperature Pulse Rate 72 Respiratory Rate 21 Blood Pressure 100/53 L Pulse Oximetry 96 Oxygen Delivery Method Room Air Oxygen Flow Rate 2 Narrative Exam Narrative: NAD, alert and oriented. Fluent speech. Pale. Lungs are clear, normal rate and effort. Heart is regular, no murmur gallop or rub. Abdomen is soft, non distended. Extremities are free of edema. Objective Labs 04/22/24 13:55 04/21/24 05:20 Labs: Laboratory Results - last 24 hr 04/18/24 04/21/24 04/22/24 07:15 11:18 06:00 WBC 11.3 H RBC 1.91 L Hgb 6.3 L* Hct 18.6 L* MCV 97.7 MCH 33.2 MCHC 34.0 RDW 13.6 Plt Count 191 Blood Type A Positive Antibody Screen Positive Antibody Identification Anti-Fya Crossmatch See Detail See Detail 04/22/24 13:55 WBC RBC Hgb 7.1 L Hct 20.9 L* MCV MCH MCHC RDW Plt Count Blood Type Antibody Screen Antibody Identification Crossmatch [facility] Social History household members: spouse Smoking Status: Never smoker Assessment & Plan Assessment & Plan narrative: 1. Upper GI bleed with melena, present on admission and active. 2. CAD, present on admission and stable. On chronic Plavix. 3. Mild aortic stenosis, present on admission and stable. 4. DM 2, present on admission and stable. 5. Obesity class 2 with BMI of 35.8, present on admission and active. 6. New chest pain, dissipated. Patient was at high risk for recurrent NSTEMI given his CAD and blood loss anemia. 7. Acute blood loss anemia secondary to GI bleed. New and active. 8. New Parkinson's disease recently diagnosed Plan: -IV Protonix 40 IV q.12 hours. -morphine as needed for pain. -discussed with Cardiology at [facility], we will hold dual antiplatelets, and when stable we will resume only aspirin. No further need for Plavix. -serial hemoglobin, improved Hg from 6.3 to 7.1 after 1U PRBC this AM. -if h/h stabilizes consider trial of sinemet. Will see if outpatient records can be obtained in the coming days. -advanced diet today. -hold home antihypertensives except metoprolol, consider decreasing depending on BP though has been stabily soft. -no endoscopy after discussion noted below. -if rebleeding consider repeat CTA and discussion with family on goals of care and possible IR intervention as initial CTA showed possible bleeding from the stomach not visualized on EGD. -discussed with blood [employer] [facility] daily, they are on a national search for units that would be compatible. He got 2nd U today, with Hg improving to 7.1 today, but I would like him higher. A 3rd U is on the way from [place] this evening. I have also asked for 2 additional units to be delivered from [place] in case of recurrent bleeding. -extensive goals of care discussion today. Patient has had a lot go wrong recently and has had a rapid decline. He does not want a poor quality of life. Family is worried about what his fpc recovery potential is. In addition to his recent cardiac hospitalization, he was recently diagnosed with Parkinson's by an outpatient neurologist. We discussed if more urgent blood is needed family does not want to risk transfusion reaction and only wishes for matched blood, if we are unable to get this they are okay with comfort measures. He attempted a prep which he did not tolerate, they do not wish to proceed with colonoscopy for evaluation. They would like limited interventions including blood, therapy evaluations. We discussed transfer in case of possible transfusion reaction if he needed more urgent blood, however given family has no interest in this he can continue care here. We also discussed should his h/h stabilize we could trial sinemet to see if this helps with his cognition and ambulation. I spent 20 minutes involved in the advanced care planning of this patient, summarized as above in addition to other services outlined above. Full resuscitation, he was a POLST which is dated April 08, 2024. Will need to revisit this after the above discussion in the coming days. Admitted inpatient. REJI: Unclear, guarded prognosis. Additional history obtained from patient's family, discussion with surgeon today and extensive discussions with [facility]. Time-Based Coding :: [TOTAL MINUTES] spent with patient and on the chart (including review of chart, obtaining history, exam, reviewing outside data, placing orders, documenting exam and treatment plan, and counseling patient) on [DATE]. Quality VTE Deep Vein Thrombosis/Pulmonary Embolism Present on Admission: No
[2024-04-22] MEDS: HYDROCODONE/ACET 5/325 TABLET 1 TAB PO (20:34)
[2024-04-23] VITALS (22 sets, daily range): BP systolic 85–114; BP diastolic 48–59; PULSE 58–65; RESP 16–28; TEMP 35.8–36.6; O2SAT 92–99
[2024-04-23 06:17] LABS: Hematocrit 22.7 % (41-53); Hemoglobin 7.8 g/dL (13.5-17.5); Mean Corpuscular HGB Conc 34.6 % (30-36); Mean Corpuscular Hemoglobin 32.7 PG (26-34); Mean Corpuscular Volume 94.4 fL (80-100); Platelet Count 198 X10^3/uL (150-400); Red Cell Distribution Width 13.9 % (11.6-14.8)
[2024-04-23 06:31] LABS: Add Manual Diff / Slide Review YES
[2024-04-23 06:35] LABS: Alanine Aminotransferase 21 IU/L (<50); Albumin 2.6 g/dL (3.5-5.0); Alkaline Phosphatase 60 U/L (38-126); Aspartate Aminotransferase 25 IU/L (17-59); BUN Creatinine Ratio 13.3 (6-22); Blood Urea Nitrogen 10 mg/dL (9-20); Carbon Dioxide 27 mmol/L (22-32); Chloride 104 mmol/L (98-107); Estimated Glomerular Filt Rate > 60 mL/min (>60); Globulin 2.7 g/dL (1.7-4.1); Glucose 123 mg/dL (80-110); HEMOLYSIS < 15 (0-50); Magnesium 1.9 mg/dL (1.6-2.3); Potassium 3.6 mmol/L (3.4-5.1); Sodium 131 mmol/L (137-145); Total Protein 5.3 g/dL (6.3-8.2)
[2024-04-23 06:38] LABS: Neutrophils Absolute Manual 8280 /uL (3000-5900); Nucleated Red Blood Cells 2 #/Diff; Total Cells Counted 100
[2024-04-23 06:39] LABS: Anisocytosis 1+
--- NOTE | 2024-04-23 06:39 | PC.NURSE ---
[employer] Clerk Note-Patient tolerated 1 unit PRBCs given overnight. VSS. Had very small maroon BM using bedpan. Urine cloudy giancarlo, few small clots and sediment noted. 1 [place] given at HS, patient able to sleep. Family in room.
[2024-04-23] MEDS: PANTOPRAZOLE 40 MG VIAL IV ×2 (08:47→21:48)
[2024-04-23] MEDS: DULOXETINE 30 MG CAPSULE PO (08:48)
[2024-04-23] MEDS: buPROPion XL 150 MG TAB PO (08:48)
[2024-04-23] MEDS: METOPROLOL ER 50 MG TABLET 100 MG PO (08:48)
[2024-04-23] MEDS: LEVOTHYROXINE 100 MCG TABLET PO (08:48)
[2024-04-23] MEDS: EZETIMIBE 10 MG TABLET PO (08:48)
[2024-04-23] MEDS: ATORVASTATIN 20 MG TABLET 80 MG PO (08:48)
[2024-04-23] MEDS: TAMSULOSIN 0.4 MG CAPSULE PO (08:48)
[2024-04-23] MEDS: RANOLAZINE 500 MG TAB.ER.12H PO ×2 (08:48→21:54)
[2024-04-23] MEDS: SODIUM CHLORIDE 0.9% FLUSH 10 ML IV ×2 (08:49→21:54)
[2024-04-23] MEDS: CARBIDOPA-LEVODOPA 25/100 TABLET 1 EACH PO ×3 (08:50→21:48)
--- NOTE | 2024-04-23 11:15 | PT.IIE ---
Current Diagnoses Melena (04/18/24) Surgery Performed Operation Date: 04/19/24 16:00 Actual Procedures p Esophagogastroduodenoscopy - Hugo Spear MD Physical Therapy Inpatient Evaluation/Re-Eval M1 PT/OT-IP Prior Functional Status Start: 04/23/24 12:18 Freq: NEEDED Status: Active Protocol: Document 04/23/24 11:15 AB (Rec: 04/23/24 12:35 AB [id number]) Medical Review Prior Functional Status Medical History Reviewed Yes Communication able to make needs known Mobility and Gait family in room and clarified info pt provided: pt modified independent with mobilities using a FWW for ambulation pt with h/o falls: ~ 5 falls last year Social History Household Members spouse Living Arrangements House Number of Floors (Floors) One Floor Number of Stairs To Enter/Railing? 2 steps R rail ascending Home Environment Standard Height Toilet,Walk in Shower Home Equipment Front Wheel Walker,Shower Seat with Backrest,Grab Bars Near Toilet,Grab Bars In Shower Additional Social History Comment spouse will not be able to assist pt M2 PT-IP Current Condition Start: 04/23/24 12:18 Freq: NEEDED Status: Active Protocol: Document 04/23/24 11:15 AB (Rec: 04/23/24 12:35 AB [id number]) Physical Therapy Current Condition Current Condition Evaluation Date 04/23/24 Treatment Diagnosis melena; GI bleed; difficulty in walking Onset Date 04/18/24 M3 PT-IP Subjective Start: 04/23/24 12:18 Freq: NEEDED Status: Active Protocol: Document 04/23/24 11:15 AB (Rec: 04/23/24 12:35 AB [id number]) Subjective Physical Therapy Visit Type Type Initial Evaluation Visit Start Time 11:15 Visit Stop Time 11:50 Number of ORGANISATIONAL PSYCHOLOGIST Visits 0 Physical Therapy Visit Comments Patient Comments agreeable to do PT M4 PT-IP Mobility and Gait Start: 04/23/24 12:18 Freq: NEEDED Status: Active Protocol: Document 04/23/24 11:15 AB (Rec: 04/23/24 12:35 AB [id number]) PT-Bed Mobility Assessment Supine to Sit Supine to Sit Maximum Assistance,1 Person Assistance,2 Person Assistance ,Head of Bed Elevated,Bedrails PT-Transfer Assessment Sit to and From Stand Sit to and from Stand Maximum Assistance,2 Person Assistance,Use of Upper Extremities Equipment Transfer Assistive Device Gait Belt,Front Wheeled Walker Orthotic/Prosthetic Devices or Brace: No Transfers Transfer Destination Chair Transfer Technique Stand Step Pivot Transfer Ability Level of Assist Maximum Assistance,1 Person Assistance,2 Person Assistance ,Use of Upper Extremities Comments Mobility Comments pt supine in bed. family in room. obtained PLOF and home set up and family clarified info pt provided. BP supine: 105/58 O2 sat: 95% pt completed supine to sit max A x 1-2 and max debbie. max A x 2 for scooting to EOB. presents with increase retroleaning in sitting requiring max A for sitting balance. c/o dizziness and lightheadedness. BP checked: 106/60. pt completed sit to stand max A x 2 and cues and stated that he will not be able to walk but agreed to transfer to chair. completed step transfer to chair max A x 1-2 and max cues. max A x 2 midway during transfer with pt freezing needing assist to pivot to chair. positioned pt on the chair. call light and table placed within reach. PT-Balance Assessment Sitting Balance and Reactions Static Sitting Balance Ability Poor Dynamic Sitting Balance Ability Poor Standing Balance and Reactions Static Standing Balance Ability Poor Dynamic Standing Balance Ability Poor Device Used FWW M5 PT-IP Objective Assessments Start: 04/23/24 12:18 Freq: NEEDED Status: Active Protocol: Document 04/23/24 11:15 AB (Rec: 04/23/24 12:35 AB [id number]) Orientation Orientation/Cognition Level of Alertness Alert Orientation Name,Place,Situation Language Function Ability Hard of Hearing Safety Awareness Decreased Safety Awareness Memory Description Short Term Impaired Gross Range of Motion Lower Extremity ROM Assessment Within Functional Limits Strength Lower Extremity Strength Hip 4-/5 Knee 4-/5 Muscle Tone Muscle Tone WNL Yes M6 PT-IP Treatment Start: 04/23/24 12:18 Freq: NEEDED Status: Active Protocol: Document 04/23/24 11:15 AB (Rec: 04/23/24 12:35 AB [id number]) Physical Therapy Treatment Education Education Provided Safety M7 PT-IP Assessment and Plan Start: 04/23/24 12:18 Freq: NEEDED Status: Active Protocol: Document 04/23/24 11:15 AB (Rec: 04/23/24 12:35 AB [id number]) PT Summary Assessment and Plan Potential Rehabilitation Potential Fair Status of Condition at Evaluation Evolving Summary Impairments Pain,ROM,Strength,Balance, Coordination,Sensation,Tone, Cognition,Bed Mobility, Transfers,Gait,Activity Tolerance Assessment Summary pt is a 74 y/o M who is admitted for GI bleed. pt requiring max A x 1-2 for mobility using fWW and unable to ambulate at this time. pt also has decrease activity tolerance affecting mobility. pt also with newly diagnoses PD contributing to current medical condition. pt will require SNF rehab to improve overall mobility and strength. pt with h/o falls and continues to be a high fall risk. Goals Bed Mobility Goal Minimal Assistance Transfer Goal Minimal Assistance,Front Wheeled Walker Gait Goal Minimal Assistance,Front Wheel Walker Gait Distance 50 Other Goals improve bed mobility, transfers, ambulation using LRAD 200 ft SBA up/down 2 steps R rail ascending SBA Days to Meet Goals 10 Frequency of Treatment Frequency Of Treatment Once a Day Treatment Plan Physical Therapy Treatment Plan Bed Mobility Training,Transfer Training,Gait Training, Therapeutic Exercise,Balance Retraining,Discharge Planning, Hot or Cold Pack,Neuromuscular Re-ed,Coordination Retraining Precautions Other Precautions falls Recommendations To Nursing Amount of Assist Needed 2 Person Assist Discharge Recommendations PT Discharge Recommendations SNF Rehab Transportation Needs at Discharge Wheelchair/Cabulance
[2024-04-23] MEDS: INSULIN LISPRO 100 UNIT/ML 3ML VIAL SUBCUT (12:17)
--- NOTE | 2024-04-23 13:11 | CM.DPC ---
DCP Cont. Reviewed EMR and team rounds for status updates. Pt was able to get a blood transfusion last night, and will have additional transfusions later this afternoon once his blood arrives from [facility]. Plan for d/c not yet clear, monitoring for final needs: comfort care vs. SNF rehab.
--- NOTE | 2024-04-23 14:42 | OT.IPNOTE ---
Per nursing pt just getting back to bed and awaiting on getting blood. Able to get prior level of function from the family. To do Ot eval tomorrow.
--- NOTE | 2024-04-23 16:23 | PM.PN.1 ---
Subjective Subjective Interval history: Hospital course: This patient was admitted with melena. Initially it appeared that his bleed had stopped spontaneously. He was treated with PPI IV b.i.d.. He then developed maroon stools and did have a worsened blood loss anemia. He underwent EGD on April 19 which was unrevealing. His blood counts drifted down to a hemoglobin of 7 and just under 7. He was typed and crossed a early in his admission and found to have for antibodies for blood transfusions and no compatible blood in the entire [facility] region except for 1 unit which was given on April 19. Throughout his stay we continue to work with blood work [facility] and obtaining blood through a national search. He did develop some chest pain on the morning of the which improved with metoprolol. He has had soft blood pressures and been receiving intermittent IV fluid boluses. He had a recent admission at [facility] in [place] with an NSTEMI it was discussed with Cardiology on April 18. They recommended holding both antiplatelet agents and resuming only aspirin when medically stable to do so. He was had no recent PCI and was essentially deemed a medical therapy only patient at the time of his NSTEMI. He was also recently told by neurologist he had parkinson's. His Hg continued to trend up after transfusion, small maroon stool documented overnight not mentioned to family. S: No complaints today, he feels okay, still weak. Exam Vital Signs (past 8 hours): - 04/23/24 12:00 04/23/24 12:00 04/23/24 13:00 Pulse Rate 61 65 Respiratory Rate 19 28 H Blood Pressure 98/56 L Pulse Oximetry 93 95 04/23/24 13:28 04/23/24 13:28 04/23/24 14:00 Pulse Rate 64 Respiratory Rate 22 Blood Pressure 114/59 L 89/50 L Pulse Oximetry 96 04/23/24 14:00 04/23/24 15:40 04/23/24 15:40 Pulse Rate 61 63 Respiratory Rate 18 19 Blood Pressure 93/50 L Pulse Oximetry 94 92 04/23/24 16:00 04/23/24 16:00 04/23/24 16:03 Pulse Rate 61 Respiratory Rate 17 Blood Pressure 85/48 L 101/56 L Pulse Oximetry 94 04/23/24 16:03 Pulse Rate 62 Respiratory Rate 21 Blood Pressure Pulse Oximetry 93 Oxygen Delivery Method Room Air Oxygen Flow Rate 2 Narrative Exam Narrative: NAD, alert and oriented. Fluent speech. Pale. Lungs are clear, normal rate and effort. Heart is regular, no murmur gallop or rub. Abdomen is soft, non distended. Extremities are free of edema. Objective Labs 04/24/24 04:30 04/24/24 04:30 Labs: Laboratory Results - last 24 hr 04/21/24 04/23/24 11:18 05:50 WBC 12.0 H RBC 2.40 L Hgb 7.8 L Hct 22.7 L MCV 94.4 D MCH 32.7 MCHC 34.6 RDW 13.9 Plt Count 198 Neut % (Auto) Not Reportable Lymph % (Auto) Not Reportable [place] % (Auto) Not Reportable Eos % (Auto) Not Reportable Baso % (Auto) Not Reportable Lymph # (Auto) Not Reportable [place] # (Auto) Not Reportable Baso # (Auto) Not Reportable Total Counted 100 Seg Neutrophils % 58.0 Band Neutrophils % 11.0 H Lymphocytes % (Manual) 19.0 L Monocytes % (Manual) 7.0 Eosinophils % (Manual) 3.0 Metamyelocytes % 2.0 H Neutrophils # (Manual) 8280 H Nucleated RBCs 2 H RBC Morphology See below Anisocytosis 1+ H Sodium 131 L Potassium 3.6 Chloride 104 Carbon Dioxide 27 BUN 10 Creatinine 0.75 Estimated GFR > 60 BUN/Creatinine Ratio 13.3 Glucose 123 H Calcium 8.0 L Magnesium 1.9 Total Bilirubin 1.0 AST 25 ALT 21 Alkaline Phosphatase 60 Total Protein 5.3 L Albumin 2.6 L Globulin 2.7 Albumin/Globulin Ratio 1.0 Blood Type A Positive Antibody Screen Positive Antibody Identification Anti-Fya Crossmatch See Detail [facility] Social History household members: spouse Smoking Status: Never smoker Assessment & Plan Assessment & Plan narrative: 1. Upper GI bleed with melena, present on admission and active. 2. CAD, present on admission and stable. On chronic Plavix. 3. Mild aortic stenosis, present on admission and stable. 4. DM 2, present on admission and stable. 5. Obesity class 2 with BMI of 35.8, present on admission and active. 6. New chest pain, dissipated. Patient was at high risk for recurrent NSTEMI given his CAD and blood loss anemia. 7. Acute blood loss anemia secondary to GI bleed. New and active. 8. New Parkinson's disease recently diagnosed Plan: -IV Protonix 40 IV q.12 hours. EGD was negative. Patient and family do not want prep for colonoscopy. -morphine as needed for pain. -discussed with Cardiology at [facility], we will hold dual antiplatelets, and when stable we will resume only aspirin. No further need for Plavix. -serial hemoglobin, improved Hg from 6.3 to 7.8 after most recent h/h, s/p 3U PRBC total. -Started sinemet trial. Follows with [place] neurology. -advanced diet. -hold home antihypertensives except metoprolol, consider decreasing depending on BP though has been stabily soft. -no endoscopy after discussion noted below. -if rebleeding consider repeat CTA and discussion with family on goals of care and possible IR intervention as initial CTA showed possible bleeding from the stomach not visualized on EGD. -discussed with [employer] daily, they are on a national search for units that would be compatible. He got 3U total, and improved h/h. I have also asked for 2 additional units to be delivered from [place] in case of recurrent bleeding. -extensive goals of care discussion. Patient has had a lot go wrong recently and has had a rapid decline. He does not want a poor quality of life. Family is worried about what his residential recovery potential is. In addition to his recent cardiac hospitalization, he was recently diagnosed with Parkinson's by an outpatient neurologist. We discussed if more urgent blood is needed family does not want to risk transfusion reaction and only wishes for matched blood, if we are unable to get this they are okay with comfort measures. He attempted a prep which he did not tolerate, they do not wish to proceed with colonoscopy for evaluation. They would like limited interventions including blood, therapy evaluations. We discussed transfer in case of possible transfusion reaction if he needed more urgent blood, however given family has no interest in this he can continue care here. Full resuscitation, he was a POLST which is dated April 08, 2024. Will need to revisit this after the above discussion in the coming days. Admitted inpatient. REJI: Unclear, guarded prognosis. Additional history obtained from patient's family, discussion with surgeon today and extensive discussions with [facility]. Time-Based Coding :: [TOTAL MINUTES] spent with patient and on the chart (including review of chart, obtaining history, exam, reviewing outside data, placing orders, documenting exam and treatment plan, and counseling patient) on [DATE]. Quality VTE Deep Vein Thrombosis/Pulmonary Embolism Present on Admission: No
[2024-04-23] MEDS: HYDROCODONE/ACET 5/325 TABLET 1 TAB PO (17:15)
[2024-04-23 17:29] LABS: Hematocrit 24.9 % (41-53); Hemoglobin 8.3 g/dL (13.5-17.5)
[2024-04-24] VITALS (15 sets, daily range): BP systolic 98–128; BP diastolic 54–65; PULSE 55–69; RESP 17–23; TEMP 35.8–36.6; O2SAT 93–100
[2024-04-24 05:16] LABS: Hematocrit 23.5 % (41-53); Mean Corpuscular HGB Conc 34.2 % (30-36); Mean Corpuscular Hemoglobin 32.4 PG (26-34); Mean Corpuscular Volume 94.6 fL (80-100); Platelet Count 210 X10^3/uL (150-400); Red Blood Cell Count 2.48 X10^6/uL (4.5-5.9); Red Cell Distribution Width 14.4 % (11.6-14.8); White Blood Cell Count 12.2 X10^3/uL (4.5-11.0)
[2024-04-24 05:23] LABS: Add Manual Diff / Slide Review YES
[2024-04-24 05:25] LABS: Alanine Aminotransferase 9 IU/L (<50); Albumin 2.7 g/dL (3.5-5.0); Alkaline Phosphatase 67 U/L (38-126); Aspartate Aminotransferase 25 IU/L (17-59); BUN Creatinine Ratio 14.6 (6-22); Bilirubin Total 0.9 mg/dL (0.2-1.3); Blood Urea Nitrogen 12 mg/dL (9-20); Calcium 8.4 mg/dL (8.4-10.2); Carbon Dioxide 29 mmol/L (22-32); Chloride 102 mmol/L (98-107); Estimated Glomerular Filt Rate > 60 mL/min (>60); Globulin 2.8 g/dL (1.7-4.1); Glucose 122 mg/dL (80-110); HEMOLYSIS < 15 (0-50); Potassium 3.7 mmol/L (3.4-5.1); Sodium 131 mmol/L (137-145); Total Protein 5.5 g/dL (6.3-8.2)
[2024-04-24 06:06] LABS: Neutrophils Absolute Manual 8174 /uL (3000-5900); RBC Morphology Normal Morphology; Total Cells Counted 100
[2024-04-24] MEDS: LEVOTHYROXINE 100 MCG TABLET PO (06:31)
[2024-04-24] MEDS: DULOXETINE 30 MG CAPSULE PO (08:35)
[2024-04-24] MEDS: buPROPion XL 150 MG TAB PO (08:35)
[2024-04-24] MEDS: CARBIDOPA-LEVODOPA 25/100 TABLET 1 EACH PO ×3 (08:35→20:55)
[2024-04-24] MEDS: PANTOPRAZOLE 40 MG VIAL IV ×2 (08:35→20:56)
[2024-04-24] MEDS: TAMSULOSIN 0.4 MG CAPSULE PO (08:35)
[2024-04-24] MEDS: EZETIMIBE 10 MG TABLET PO (08:35)
[2024-04-24] MEDS: RANOLAZINE 500 MG TAB.ER.12H PO ×2 (08:36→20:55)
[2024-04-24] MEDS: METOPROLOL ER 50 MG TABLET 100 MG PO (08:36)
[2024-04-24] MEDS: ATORVASTATIN 20 MG TABLET 80 MG PO (08:36)
[2024-04-24] MEDS: SODIUM CHLORIDE 0.9% FLUSH 10 ML IV ×2 (08:37→21:04)
[2024-04-24] MEDS: INSULIN LISPRO 100 UNIT/ML 3ML VIAL SUBCUT ×3 (08:41→17:06)
--- NOTE | 2024-04-24 11:30 | PT.IPTN ---
Current Diagnoses Melena (04/18/24) Surgery Performed Operation Date: 04/19/24 16:00 Actual Procedures p Esophagogastroduodenoscopy - Hugo Spear MD Physical Therapy Treatment Note M2 PT-IP Current Condition Start: 04/23/24 12:18 Freq: NEEDED Status: Active Protocol: Document 04/23/24 11:15 AB (Rec: 04/23/24 12:35 AB [id number]) Physical Therapy Current Condition Current Condition Evaluation Date 04/23/24 Treatment Diagnosis melena; GI bleed; difficulty in walking Onset Date 04/18/24 M3 PT-IP Subjective Start: 04/23/24 12:18 Freq: NEEDED Status: Active Protocol: Document 04/24/24 12:02 TS (Rec: 04/24/24 12:12 TS [id number]) Subjective Physical Therapy Visit Type Type Treatment Note Visit Start Time 11:30 Visit Stop Time 11:55 Number of WINDOW TRIMMER APPRENTICE Visits 1 Physical Therapy Visit Comments Patient Comments Pt found resting in bed, he is agreeable to PT. M4 PT-IP Mobility and Gait Start: 04/23/24 12:18 Freq: NEEDED Status: Active Protocol: Document 04/24/24 12:02 TS (Rec: 04/24/24 12:12 TS [id number]) PT-Bed Mobility Assessment Supine to Sit Supine to Sit Moderate Assistance,1 Person Assistance,Head of Bed Elevated,Bedrails Scooting Scooting to Edge of Bed Maximum Assistance PT-Transfer Assessment Sit to and From Stand Sit to and from Stand Maximum Assistance,2 Person Assistance,Use of Upper Extremities Equipment Transfer Assistive Device Gait Belt,Front Wheeled Walker Orthotic/Prosthetic Devices or Brace: No Transfers Transfer Destination Chair Transfer Technique Stand Step Pivot Transfer Ability Level of Assist Maximum Assistance,2 Person Assistance,Use of Upper Extremities Comments Mobility Comments Supine to sit ModA x1 for uprighting trunk to EOB. PT requires MaxA to scoot to EOB. He has a posterior lean in sitting, requires Stefano-ModA for sitting balance. STS with FWW MaxA x2, pt has a posterior lean and requires cues for weight fwd. Stand step pivot to the chair MaxA x2, pt requires heavy cueing for sequencing. Pt was left in the chair, all needs met, OT in the room. Gait Assessment Comments Gait Comments Stand step pivot PT-Balance Assessment Sitting Balance and Reactions Static Sitting Balance Ability Poor Dynamic Sitting Balance Ability Poor Standing Balance and Reactions Static Standing Balance Ability Poor Dynamic Standing Balance Ability Poor Device Used FWW M5 PT-IP Objective Assessments Start: 04/23/24 12:18 Freq: NEEDED Status: Active Protocol: Document 04/23/24 11:15 AB (Rec: 04/23/24 12:35 AB [id number]) Orientation Orientation/Cognition Level of Alertness Alert Orientation Name,Place,Situation Language Function Ability Hard of Hearing Safety Awareness Decreased Safety Awareness Memory Description Short Term Impaired Gross Range of Motion Lower Extremity ROM Assessment Within Functional Limits Strength Lower Extremity Strength Hip 4-/5 Knee 4-/5 Muscle Tone Muscle Tone WNL Yes M6 PT-IP Treatment Start: 04/23/24 12:18 Freq: NEEDED Status: Active Protocol: Document 04/24/24 12:02 TS (Rec: 04/24/24 12:12 TS [id number]) Physical Therapy Treatment Education Education Provided Safety M7 PT-IP Assessment and Plan Start: 04/23/24 12:18 Freq: NEEDED Status: Active Protocol: Document 04/24/24 12:02 TS (Rec: 04/24/24 12:12 TS [id number]) PT Summary Assessment and Plan Potential Rehabilitation Potential Fair Summary Impairments Pain,ROM,Strength,Balance, Coordination,Sensation,Tone, Cognition,Bed Mobility, Transfers,Gait,Activity Tolerance Progress Towards Goals Slow Progress due to Medical Issues,Slow Progress due to Activity Tolerance,Slow Progress - Other Assessment Summary continues to make slow progress with his mobility. He did require decreased assist to sit up to EOB. He has poor sitting balance and poor standing balance. He continues to require MaxA x2 for STS and stand step pivot transfer to the chair. He is slow to process directions and requires heavy cueing. PT is recommending SNF at this time to improve strength and functional mobility. Goals Bed Mobility Goal Minimal Assistance Transfer Goal Minimal Assistance,Front Wheeled Walker Gait Goal Minimal Assistance,Front Wheel Walker Gait Distance 50 Other Goals improve bed mobility, transfers, ambulation using LRAD 200 ft SBA up/down 2 steps R rail ascending SBA Days to Meet Goals 10 Frequency of Treatment Frequency Of Treatment Once a Day Treatment Plan Physical Therapy Treatment Plan Bed Mobility Training,Transfer Training,Gait Training, Therapeutic Exercise,Balance Retraining,Discharge Planning, Hot or Cold Pack,Neuromuscular Re-ed,Coordination Retraining Precautions Other Precautions falls Recommendations To Nursing Amount of Assist Needed 2 Person Assist Discharge Recommendations PT Discharge Recommendations SNF Rehab Transportation Needs at Discharge Wheelchair/Cabulance
--- NOTE | 2024-04-24 12:03 | OT.IP.EVAL ---
Current Diagnoses Melena (04/18/24) Surgery Performed Operation Date: 04/19/24 16:00 Actual Procedures p Esophagogastroduodenoscopy - Hugo Spear MD Occupational Therapy Inpatient Evaluation/Re-Eval M1 PT/OT-IP Prior Functional Status Start: 04/23/24 12:18 Freq: NEEDED Status: Active Protocol: Document 04/24/24 12:08 [facility] (Rec: 04/24/24 12:23 [facility] [id number]) Medical Review Prior Functional Status Medical History Reviewed Yes Communication able to make needs known Mobility and Gait family in room and clarified info pt provided: pt modified independent with mobilities using a FWW for ambulation pt with h/o falls: ~ 5 falls last year Activities of Daily Living and IADL's Pt's states at times able to do ADL on his own and at times needing 50% assist as having trouble initiating movements. Social History Household Members spouse Living Arrangements House Number of Floors (Floors) One Floor Number of Stairs To Enter/Railing? 2 steps R rail ascending Home Environment Standard Height Toilet,Walk in Shower Home Equipment Front Wheel Walker,Shower Seat with Backrest,Grab Bars Near Toilet,Grab Bars In Shower Additional Social History Comment spouse will not be able to assist pt M2 OT-IP Current Condition Start: 04/24/24 12:07 Freq: Status: Active Protocol: Document 04/24/24 12:08 [facility] (Rec: 04/24/24 12:23 [facility] [id number]) Occupational Therapy Current Condition Current Condition Evaluation Date 04/24/24 Treatment Diagnosis Melana, upper GI bleed, Parkinson Diagnosis Onset Date 04/18/24 M3 OT- IP Subjective and Pain Start: 04/24/24 12:07 Freq: Status: Active Protocol: Document 04/24/24 12:08 [facility] (Rec: 04/24/24 12:23 [facility] [id number]) OT- Subjective Occupational Therapy Visit Type Type Initial Evaluation Visit Start Time 11:25 Visit Stop Time 12:03 Occupational Therapy Visit Comments Patient Comments Pt agreed to get up. Patient/Caregiver Goals TO get better. OT Pain Assessment Pain When Pain Assessed At Rest Pain Present Pain Present Denied Pain M4 OT- IP ADL's Start: 04/24/24 12:07 Freq: Status: Active Protocol: Document 04/24/24 12:08 [facility] (Rec: 04/24/24 12:23 [facility] [id number]) OT ADL-Grooming General Evaluation Areas Needing Assistance Retrieving/Set-up of Grooming Items Comments OT Grooming Comments Pt able to do after initial set-up and vc. OT ADL-Oral Care General Eval Oral Care Ability Standby Assistance Comments Oral Care Comments While seated. OT ADL-Dressing General Eval Lower Body Dressing Ability Total Assistance Areas Needing Assistance Socks OT ADL-Toileting General Evaluation Toileting Ability Total Assistance Areas Needing Assistance Empty Catheter or Colostomy, Manage Clothing,Perform Perineal Hygiene Comments OT Toileting Comments Use of guevara at this time. Best to use lionel lift to transfer to the [facility]. OT ADL-Bathing Comments OT Bathing Comments Sponge bath more appropriate at this time. M5 OT- IP IADL's Start: 04/24/24 12:07 Freq: Status: Active Protocol: Document 04/24/24 12:08 [facility] (Rec: 04/24/24 12:23 [facility] [id number]) OT-Instrumental Activities of Daily Living Home Safety Awareness Home Safety Comments At times pt has difficulty to get his words out. Medication Management Medication Management Caregiver Administers Money Management Money Management Caregiver Provides Assistance Meal Preparation Meal Preparation Caregiver Provides Assist Bi Application Developer Bi Application Developer Caregiver Provides Assist M6 OT- IP Functional Cognition Start: 04/24/24 12:07 Freq: Status: Active Protocol: Document 04/24/24 12:08 [facility] (Rec: 04/24/24 12:23 [facility] [id number]) Cognitive Factors Limiting Selfcare Function Cognitive Ability Level of Alertness Alert Patient Orientation Name Attention Span Ability Capable of Focused Attention, Capable of Sustained Attention Cognitive Comments Cognitive Assessment Comments Pt able to follow commands for routine tasks of oral care and grooming. Pt needing step by step, tactile and visual cues for bed mobility and transfer needs. Due to Parkinson's, pt has difficulty to initiate his movements, especially during transfers. OT- Vision and Hearing OT- Hearing Assessment OT- Hearing Assessment Hearing Impaired,Use of Hearing Aids OT- Vision Assessment Visual Acuity Glasses For Reading Visual Attentiveness WFL Occular Pursuits WFL Vision Assessment Comments Pt able to read the clock accurately. M7 OT- IP Mobility and Balance Start: 04/24/24 12:07 Freq: Status: Active Protocol: Document 04/24/24 12:08 [facility] (Rec: 04/24/24 12:23 [facility] [id number]) OT- Bed Mobility Assessment Supine to Sit Supine to Sit Assist Maximum Assistance Scooting Scooting to Edge of Bed Maximum Assistance,1 Person Assistance OT-Transfer Assessment Sit to and From Stand Sit to and from Stand Maximum Assistance,2 Person Assistance Transfers Transfer Ability Maximum Assistance,2 Person Assistance Technique Transfer Destination Bed,Chair Devices Transfer Assistive Devices Gait Belt,Front Wheeled Walker Comments Mobility Comments Increased time and MODA to get upright and MAXA to get to the edge of the bed.MAX AX 2 to stand and transfer. Pt heavily leans back on his feet and needing assist for FWW management and weight shifting . At this time best to use lionel lift for staff. BP supine 102/57 and sitting 118/85 O2 on RA 93%. OT- Balance Assessment Sitting Balance and Reactions Static Sitting Balance Ability Poor Dynamic Sitting Balance Ability Poor Standing Balance and Reactions Static Standing Balance Ability Poor Dynamic Standing Balance Ability Poor Comments Other Balance Tests/Deviations/Treatment Pt needing close SBA to MODA : for sitting balance. M8 OT- IP Objective Assessments Start: 04/24/24 12:07 Freq: Status: Active Protocol: Document 04/24/24 12:08 [facility] (Rec: 04/24/24 12:23 [facility] [id number]) OT Gross Range of Motion Upper Extremity Range of Motion Assessment Within Functional Limits OT Strength Upper Extremity Strength Assessment Within Functional Limits OT- Coordination Assessment Upper Extremity Finger to Nose Test Right UE Impaired Comments Coordination Comments right hand slightly impaired M9 OT- IP Assessment and Plan Start: 04/24/24 12:07 Freq: Status: Active Protocol: Document 04/24/24 12:08 [facility] (Rec: 04/24/24 12:23 [facility] [id number]) OT Summary Assessment and Plan Potential Rehabilitation Potential Good Analytic Complexity at Evaluation Moderate Summary OT Impairments Strength,Balance,Functional Cognition,Functional Mobility, Self-Feeding,Grooming,Dressing ,Toileting,Bathing,Toilet Transfers,Shower Transfers, Activity Tolerance Progress Towards Goals Slow Progress due to Medical Issues,Slow Progress due to Activity Tolerance,Slow Progress due to Cognition Assessment Summary Pt MOD complexity and main barriers are decreased initiation of movement due to his Parkinson's, steps, and now needing extensive two person assist for transfer needs at this time. Pt will greatly benefit from skilled rehab. Goals Self-Feeding Goal Independent Grooming Goal Independent Dressing Goal Minimal Assistance Toileting Goal Minimal Assistance Bathing Goal Moderate Assistance Toilet Transfer Goal Standby Assistance Shower Transfer Goal Contact Guard Assistance Days to Meet Goals 40 Frequency of Treatment Other frequency 5x/week Treatment Plan OT Treatment Plan ADL Training,Functional Cognition Training,Functional Mobility,Patient/Family Education,Discharge Planning Other Treatment Recommendations and Next Transfer to [facility] with MODA X2 Treatment Focus with FWW. Discharge Recommendations OT Discharge Recommendations SNF Rehab Transportation Needs at Discharge Wheelchair/Cabulance
--- NOTE | 2024-04-24 13:19 | CM.DPC ---
DCP Cont. Reviewed EMR and team rounds for status updates. Met with pt's and dtr to discuss their questions re: d/c disposition, they are unable to care for him at home without hiring additional in-home care, and are considering whether to have pt move in to [facility]/hospice care, or to try continuing rehab at [facility] for now to see if pt can continue to improve. Pt is not wanting to work with therapies, so returning to rehab will depend on his decision. This ACCOUNTING AUDITOR discussed the Hospice Medicare Benefit, and provided information re: what to expect with services. They will plan to have a family meeting this evening and discuss their preferences, and will meet again with this ACCOUNTING AUDITOR in the am tomorrow to discuss next steps.
[2024-04-24 15:12] LABS: Hematocrit 24.7 % (41-53); Hemoglobin 8.4 g/dL (13.5-17.5)
--- NOTE | 2024-04-24 17:09 | PC.NURSE ---
Pt stable throughout shift. Pt up to chair 2x max assist. Family at bedside, updated throughout shift.
--- NOTE | 2024-04-24 17:27 | PM.PN.1 ---
Subjective Subjective Interval history: Hospital course: This patient was admitted with melena. Initially it appeared that his bleed had stopped spontaneously. He was treated with PPI IV b.i.d.. He then developed maroon stools and did have a worsened blood loss anemia. He underwent EGD on April 19 which was unrevealing. His blood counts drifted down to a hemoglobin of 7 and just under 7. He was typed and crossed a early in his admission and found to have for antibodies for blood transfusions and no compatible blood in the entire [facility] region except for 1 unit which was given on April 19. Throughout his stay we continue to work with blood work [facility] and obtaining blood through a national search. He did develop some chest pain on the morning of the which improved with metoprolol. He has had soft blood pressures and been receiving intermittent IV fluid boluses. He had a recent admission at [facility] in [place] with an NSTEMI it was discussed with Cardiology on April 18. They recommended holding both antiplatelet agents and resuming only aspirin when medically stable to do so. He was had no recent PCI and was essentially deemed a medical therapy only patient at the time of his NSTEMI. He was also recently told by neurologist he had parkinson's. His Hg continued to trend up after transfusion, small maroon stool documented overnight not mentioned to family. S: No complaints today, he feels okay, still weak but actually feeling a bit stronger today. Told family he wants to get better and stronger today which is a change from recently. Exam Vital Signs (past 8 hours): - 04/24/24 10:00 04/24/24 11:28 04/24/24 11:33 Temperature Pulse Rate 62 64 Blood Pressure 102/57 L Pulse Oximetry 94 93 04/24/24 11:41 04/24/24 11:42 04/24/24 12:00 Temperature 97.6 F Pulse Rate 69 Blood Pressure 118/65 118/65 Pulse Oximetry 04/24/24 12:00 Temperature Pulse Rate 66 Blood Pressure Pulse Oximetry 94 Oxygen Delivery Method Room Air Oxygen Flow Rate 2 Narrative Exam Narrative: NAD, alert and oriented. Fluent speech. Pale. Lungs are clear, normal rate and effort. Heart is regular, no murmur gallop or rub. Abdomen is soft, non distended. Extremities are free of edema. Objective Labs 04/24/24 15:03 04/24/24 04:30 Labs: Laboratory Results - last 24 hr 04/23/24 04/24/24 04/24/24 17:18 04:30 15:03 WBC 12.2 H RBC 2.48 L Hgb 8.3 L 8.0 L 8.4 L Hct 24.9 L 23.5 L 24.7 L MCV 94.6 MCH 32.4 MCHC 34.2 RDW 14.4 Plt Count 210 Neut % (Auto) Not Reportable Lymph % (Auto) Not Reportable [place] % (Auto) Not Reportable Eos % (Auto) Not Reportable Baso % (Auto) Not Reportable Lymph # (Auto) Not Reportable [place] # (Auto) Not Reportable Baso # (Auto) Not Reportable Total Counted 100 Seg Neutrophils % 56.0 Band Neutrophils % 11.0 H Lymphocytes % (Manual) 17.0 L Monocytes % (Manual) 11.0 Eosinophils % (Manual) 2.0 Metamyelocytes % 3.0 H Neutrophils # (Manual) 8174 H RBC Morphology Normal morphology Sodium 131 L Potassium 3.7 Chloride 102 Carbon Dioxide 29 BUN 12 Creatinine 0.82 Estimated GFR > 60 BUN/Creatinine Ratio 14.6 Glucose 122 H Calcium 8.4 Magnesium 2.0 Total Bilirubin 0.9 AST 25 ALT 9 Alkaline Phosphatase 67 Total Protein 5.5 L Albumin 2.7 L Globulin 2.8 Albumin/Globulin Ratio 1.0 [facility] Social History household members: spouse Smoking Status: Never smoker Assessment & Plan Assessment & Plan narrative: 1. Upper GI bleed with melena, present on admission and active. 2. CAD, present on admission and stable. On chronic Plavix. 3. Mild aortic stenosis, present on admission and stable. 4. DM 2, present on admission and stable. 5. Obesity class 2 with BMI of 35.8, present on admission and active. 6. New chest pain, dissipated. Patient was at high risk for recurrent NSTEMI given his CAD and blood loss anemia. 7. Acute blood loss anemia secondary to GI bleed. New and active. 8. New Parkinson's disease recently diagnosed Plan: -IV Protonix 40 IV q.12 hours. EGD was negative. Patient and family do not want prep for colonoscopy. Transition to PO PPI BID starting tomorrow. -morphine as needed for pain. -discussed with Cardiology at [facility] previously, we will hold dual antiplatelets, and when stable we will resume only aspirin. No further need for Plavix. Will restart baby aspirin on 04/26 if h/h still stable. -serial hemoglobin, improved Hg from 6.3 to now low 8s after most recent h/h, s/p 3U PRBC total. Start oral iron every other day. -Started sinemet trial. Follows with [place] neurology. -advanced diet. -hold home antihypertensives except metoprolol, consider decreasing depending on BP though has been stabily soft and slightly better today. -no endoscopy after discussion noted below. -if rebleeding consider repeat CTA and discussion with family on goals of care and possible IR intervention as initial CTA showed possible bleeding from the stomach not visualized on EGD. -discussed with [employer] daily, they are on a national search for units that would be compatible. He got 3U total, and improved h/h. There is 1 U available locally in case of recurrent bleeding and 2 in [place]. -extensive goals of care discussion performed previous. Patient has had a lot go wrong recently and has had a rapid decline. He does not want a poor quality of life. Family is worried about what his senior care recovery potential is. In addition to his recent cardiac hospitalization, he was recently diagnosed with Parkinson's by an outpatient neurologist. We discussed if more urgent blood is needed family does not want to risk transfusion reaction and only wishes for matched blood, if we are unable to get this they are okay with comfort measures. He attempted a prep which he did not tolerate, they do not wish to proceed with colonoscopy for evaluation. They would like limited interventions including blood, therapy evaluations and rehab after discharge. We discussed transfer in case of possible transfusion reaction if he needed more urgent blood, however given family has no interest in this he can continue care here. Full resuscitation, he was a POLST which is dated April 08, 2024. Admitted inpatient. REJI: Unclear, guarded prognosis. Will need to restart asa, make sure h/h still stable, possible discharge to SNF early next week. Additional history obtained from patient's family, discussion with surgeon today and extensive discussions with [employer]. Time-Based Coding :: [TOTAL MINUTES] spent with patient and on the chart (including review of chart, obtaining history, exam, reviewing outside data, placing orders, documenting exam and treatment plan, and counseling patient) on [DATE]. Quality VTE Deep Vein Thrombosis/Pulmonary Embolism Present on Admission: No
[2024-04-25] VITALS (13 sets, daily range): BP systolic 98–118; BP diastolic 54–67; PULSE 61–72; RESP 16–23; TEMP 36.3–36.4; O2SAT 93–97
[2024-04-25 04:48] LABS: Alanine Aminotransferase 15 IU/L (<50); Albumin 2.8 g/dL (3.5-5.0); Alkaline Phosphatase 69 U/L (38-126); Aspartate Aminotransferase 25 IU/L (17-59); BUN Creatinine Ratio 15.2 (6-22); Bilirubin Total 0.9 mg/dL (0.2-1.3); Blood Urea Nitrogen 12 mg/dL (9-20); Calcium 8.3 mg/dL (8.4-10.2); Carbon Dioxide 29 mmol/L (22-32); Chloride 102 mmol/L (98-107); Estimated Glomerular Filt Rate > 60 mL/min (>60); Globulin 2.9 g/dL (1.7-4.1); Glucose 122 mg/dL (80-110); HEMOLYSIS < 15 (0-50); Magnesium 1.9 mg/dL (1.6-2.3); Potassium 3.5 mmol/L (3.4-5.1); Sodium 132 mmol/L (137-145); Total Protein 5.7 g/dL (6.3-8.2)
[2024-04-25 04:49] LABS: Hematocrit 24.2 % (41-53); Hemoglobin 8.5 g/dL (13.5-17.5); Mean Corpuscular HGB Conc 35.1 % (30-36); Mean Corpuscular Hemoglobin 32.8 PG (26-34); Mean Corpuscular Volume 93.6 fL (80-100); Platelet Count 237 X10^3/uL (150-400); Red Blood Cell Count 2.58 X10^6/uL (4.5-5.9); Red Cell Distribution Width 14.6 % (11.6-14.8); White Blood Cell Count 10.8 X10^3/uL (4.5-11.0)
[2024-04-25 04:51] LABS: Add Manual Diff / Slide Review YES
[2024-04-25 05:13] LABS: Anisocytosis 1+; Neutrophils Absolute Manual 8316 /uL (3000-5900); Nucleated Red Blood Cells 1 #/Diff; Total Cells Counted 100
[2024-04-25 05:14] LABS: Smudge Cells 1+
[2024-04-25] MEDS: LEVOTHYROXINE 100 MCG TABLET PO (08:52)
[2024-04-25] MEDS: HYDROCODONE/ACET 5/325 TABLET 1 TAB PO (08:52)
[2024-04-25] MEDS: PANTOPRAZOLE 40 MG VIAL IV ×2 (08:52→21:27)
[2024-04-25] MEDS: ATORVASTATIN 20 MG TABLET 80 MG PO (08:53)
[2024-04-25] MEDS: TAMSULOSIN 0.4 MG CAPSULE PO (08:53)
[2024-04-25] MEDS: METOPROLOL ER 50 MG TABLET 100 MG PO (08:53)
[2024-04-25] MEDS: DULOXETINE 30 MG CAPSULE PO (08:53)
[2024-04-25] MEDS: EZETIMIBE 10 MG TABLET PO (08:53)
[2024-04-25] MEDS: buPROPion XL 150 MG TAB PO (08:54)
[2024-04-25] MEDS: CARBIDOPA-LEVODOPA 25/100 TABLET 1 EACH PO ×3 (08:54→21:27)
[2024-04-25] MEDS: SODIUM CHLORIDE 0.9% FLUSH 10 ML IV ×2 (08:54→21:39)
[2024-04-25] MEDS: RANOLAZINE 500 MG TAB.ER.12H PO ×2 (09:04→21:27)
[2024-04-25] MEDS: FERROUS SULFATE 325 MG TABLET PO (09:05)
--- NOTE | 2024-04-25 11:11 | CM.DPC ---
DCP Cont. Reviewed EMR and team rounds for status updates. Met with family to clarify what they have decided about d/c disposition, they are now wanting to move forward with a referral to [facility]. Sent referral to , they can accept by Monday if pt is medically cleared for d/c. Monitoring closely.
[2024-04-25] MEDS: SUCRALFATE 1 GM/10 ML ORAL SUSP PO ×3 (12:27→21:27)
[2024-04-25] MEDS: INSULIN LISPRO 100 UNIT/ML 3ML VIAL SUBCUT ×2 (12:29→21:38)
--- NOTE | 2024-04-25 14:05 | P.PN_ITS ---
Subjective Subjective Interval history: Hospital course: This patient was admitted with melena. Initially it appeared that his bleed had stopped spontaneously. He was treated with PPI IV b.i.d.. He then developed maroon stools and did have a worsened blood loss anemia. He underwent EGD on April 19 which was unrevealing. His blood counts drifted down to a hemoglobin of 7 and just under 7. He was typed and crossed a early in his admission and found to have for antibodies for blood transfusions and no compatible blood in the entire [facility] region except for 1 unit which was given on April 19. Throughout his stay we continue to work with blood work [facility] and obtaining blood through a national search. He did develop some chest pain on the morning of the which improved with metoprolol. He has had soft blood pressures and been receiving intermittent IV fluid boluses. He had a recent admission at [facility] in [place] with an NSTEMI it was discussed with Cardiology on April 18. They recommended holding both antiplatelet agents and resuming only aspirin when medically stable to do so. He was had no recent PCI and was essentially deemed a medical therapy only patient at the time of his NSTEMI. He was also recently told by neurologist he had parkinson's. His Hg continued to trend up after transfusion. No bowel movements in a couple of days. S: No complaints today to me but complained of stomach pain this AM improved after sucralfate, he feels okay, still weak but actually feeling a bit stronger today. Exam Vital Signs (past 8 hours): - 04/25/24 07:00 04/25/24 08:00 04/25/24 08:53 Temperature 97.6 F Pulse Rate 68 72 Respiratory Rate 23 Blood Pressure 116/57 L Pulse Oximetry Oxygen Delivery Method Room Air 04/25/24 09:23 04/25/24 12:04 04/25/24 12:04 Temperature Pulse Rate 66 61 Respiratory Rate Blood Pressure 105/55 L Pulse Oximetry 93 Oxygen Delivery Method Oxygen Delivery Method Room Air Oxygen Flow Rate 0 Narrative Exam Narrative: NAD, alert and oriented. Fluent speech. Pale. Lungs are clear, normal rate and effort. Heart is regular, no murmur gallop or rub. Abdomen is soft, non distended. Extremities are free of edema. Objective Labs 04/25/24 04:15 04/25/24 04:15 Labs: Laboratory Results - last 24 hr 04/24/24 04/25/24 15:03 04:15 WBC 10.8 RBC 2.58 L Hgb 8.4 L 8.5 L Hct 24.7 L 24.2 L MCV 93.6 MCH 32.8 MCHC 35.1 RDW 14.6 Plt Count 237 Neut % (Auto) Not Reportable Lymph % (Auto) Not Reportable [place] % (Auto) Not Reportable Eos % (Auto) Not Reportable Baso % (Auto) Not Reportable Lymph # (Auto) Not Reportable [place] # (Auto) Not Reportable Baso # (Auto) Not Reportable Total Counted 100 Seg Neutrophils % 66.0 Band Neutrophils % 11.0 H Lymphocytes % (Manual) 15.0 L Monocytes % (Manual) 6.0 Metamyelocytes % 2.0 H Neutrophils # (Manual) 8316 H Nucleated RBCs 1 H Smudge Cells 1+ H RBC Morphology See below Anisocytosis 1+ H Sodium 132 L Potassium 3.5 Chloride 102 Carbon Dioxide 29 BUN 12 Creatinine 0.79 Estimated GFR > 60 BUN/Creatinine Ratio 15.2 Glucose 122 H Calcium 8.3 L Magnesium 1.9 Total Bilirubin 0.9 AST 25 ALT 15 Alkaline Phosphatase 69 Total Protein 5.7 L Albumin 2.8 L Globulin 2.9 Albumin/Globulin Ratio 1.0 Blood Type A Positive Antibody Screen Positive Antibody Identification [facility] Social History household members: spouse Smoking Status: Never smoker Assessment & Plan Assessment & Plan narrative: 1. Upper GI bleed with melena, present on admission and active. 2. CAD, present on admission and stable. On chronic Plavix. 3. Mild aortic stenosis, present on admission and stable. 4. DM 2, present on admission and stable. 5. Obesity class 2 with BMI of 35.8, present on admission and active. 6. New chest pain, dissipated. Patient was at high risk for recurrent NSTEMI given his CAD and blood loss anemia. 7. Acute blood loss anemia secondary to GI bleed. New and active. 8. New Parkinson's disease recently diagnosed Plan: -IV Protonix 40 IV q.12 hours. EGD was negative. Patient and family do not want prep for colonoscopy. Transition to PO PPI BID starting tomorrow, was going to today but with stomach pain will keep IV for now. -added sucralfate 1/9 AM -morphine as needed for pain. -discussed with Cardiology at [facility] previously, we will hold dual antiplatelets, and when stable we will resume only aspirin. No further need for Plavix. Will restart baby aspirin on 04/26 daily. -serial hemoglobin, improved Hg from 6.3 to now low 8s after most recent h/h, s/p 3U PRBC total. Started oral iron every other day. -Started sinemet trial. Follows with [facility]. -advanced diet. -hold home antihypertensives except metoprolol, consider decreasing depending on BP though has been stabily soft and slightly better today. -no endoscopy after discussion noted below. -if rebleeding consider repeat CTA and discussion with family on goals of care and possible IR intervention as initial CTA showed possible bleeding from the stomach not visualized on EGD. -discussed with [employer] [facility]. He got 3U total, and improved h/h. There is 1 U available locally in case of recurrent bleeding and 2 in [place]. -extensive goals of care discussion performed previous. Patient has had a lot go wrong recently and has had a rapid decline. He does not want a poor quality of life. Family is worried about what his residential recovery potential is. In addition to his recent cardiac hospitalization, he was recently diagnosed with Parkinson's by an outpatient neurologist. We discussed if more urgent blood is needed family does not want to risk transfusion reaction and only wishes for matched blood, if we are unable to get this they are okay with comfort measures. He attempted a prep which he did not tolerate, they do not wish to proceed with colonoscopy for evaluation. They would like limited interventions including blood, therapy evaluations and rehab after discharge. We discussed transfer in case of possible transfusion reaction if he needed more urgent blood, however given family has no interest in this he can continue care here. Full resuscitation, he has a POLST which is dated April 08, 2024. Admitted inpatient. REJI: SNF likely early next week. Will need to restart asa tomorrow, make sure h/h still stable. Additional history obtained from patient's family today, nursing staff, and discussion with showcase maker. Time-Based Coding :: [TOTAL MINUTES] spent with patient and on the chart (including review of chart, obtaining history, exam, reviewing outside data, placing orders, documenting exam and treatment plan, and counseling patient) on [DATE]. Quality VTE Deep Vein Thrombosis/Pulmonary Embolism Present on Admission: No
--- NOTE | 2024-04-25 14:10 | PT.IPTN ---
Current Diagnoses Melena (04/18/24) Surgery Performed Operation Date: 04/19/24 16:00 Actual Procedures p Esophagogastroduodenoscopy - Hugo Spear MD Physical Therapy Treatment Note M2 PT-IP Current Condition Start: 04/23/24 12:18 Freq: NEEDED Status: Active Protocol: Document 04/23/24 11:15 AB (Rec: 04/23/24 12:35 AB [id number]) Physical Therapy Current Condition Current Condition Evaluation Date 04/23/24 Treatment Diagnosis melena; GI bleed; difficulty in walking Onset Date 04/18/24 M3 PT-IP Subjective Start: 04/23/24 12:18 Freq: NEEDED Status: Active Protocol: Document 04/25/24 15:32 SW (Rec: 04/25/24 15:53 SW [id number]) Subjective Physical Therapy Visit Type Type Treatment Note Visit Start Time 14:10 Visit Stop Time 14:44 Number of ROTARY SCREEN PRINTING MACHINE OPERATOR Visits 2 Physical Therapy Visit Comments Patient Comments Pt agreeable to PT. Pt confused, thinks that he saw PT already today. M4 PT-IP Mobility and Gait Start: 04/23/24 12:18 Freq: NEEDED Status: Active Protocol: Document 04/25/24 15:32 SW (Rec: 04/25/24 15:53 SW [id number]) PT-Bed Mobility Assessment Supine to Sit Supine to Sit Maximum Assistance,2 Person Assistance,Head of Bed Elevated,Bedrails Scooting Scooting to Edge of Bed Maximum Assistance PT-Transfer Assessment Sit to and From Stand Sit to and from Stand Maximum Assistance,2 Person Assistance,Use of Upper Extremities Equipment Transfer Assistive Device Gait Belt,Front Wheeled Walker Orthotic/Prosthetic Devices or Brace: No Transfers Transfer Destination Chair Transfer Technique Stand Step Pivot Transfer Ability Level of Assist Maximum Assistance,2 Person Assistance,Use of Upper Extremities Comments Mobility Comments Pt daughter requested exercises to do with pt, initiated bed exercises, HO and instruction given to pt daughter. Supine to sit max assist x 2 people w/pt use of x1 HR. Max x1 person assist to EOB. Cues for forward weight shifting patient demonstrated posterior lean in sitting poor sitting balance, Max x2 people Sit to Stand, Pt required increased time to coordinate BLE movement, required max assist for LE with stand pivot transfer, Transfered pt from bed to chair, pt left attended with daughter present in room. Gait Assessment Gait Gait Assistance Required: Maximum Assistance,2 Person Assist Distance (Feet) 2 Assistive Devices Assistive Device Front Wheeled Walker Factors Limiting Gait Function Factors Limiting Gait Function Decreased Activity Tolerance, Decreased Strength, Incoordination,Limited Range of Motion,Poor Balance Comments Gait Comments Stand step pivot PT-Balance Assessment Sitting Balance and Reactions Static Sitting Balance Ability Poor Dynamic Sitting Balance Ability Poor Standing Balance and Reactions Static Standing Balance Ability Poor Dynamic Standing Balance Ability Poor M5 PT-IP Objective Assessments Start: 04/23/24 12:18 Freq: NEEDED Status: Active Protocol: Document 04/23/24 11:15 AB (Rec: 04/23/24 12:35 AB [id number]) Orientation Orientation/Cognition Level of Alertness Alert Orientation Name,Place,Situation Language Function Ability Hard of Hearing Safety Awareness Decreased Safety Awareness Memory Description Short Term Impaired Gross Range of Motion Lower Extremity ROM Assessment Within Functional Limits Strength Lower Extremity Strength Hip 4-/5 Knee 4-/5 Muscle Tone Muscle Tone WNL Yes M6 PT-IP Treatment Start: 04/23/24 12:18 Freq: NEEDED Status: Active Protocol: Document 04/25/24 15:32 SW (Rec: 04/25/24 15:53 SW [id number]) Physical Therapy Treatment Exercises Exercises Ankle Pumps,Quad Sets,Heel Slides Education Education Provided Safety Other Treatments Other Treatment Performed gave HO to pt daughter for sitting and supine exercises, pt education on assist/safety. M7 PT-IP Assessment and Plan Start: 04/23/24 12:18 Freq: NEEDED Status: Active Protocol: Document 04/25/24 15:32 SW (Rec: 04/25/24 15:53 [id number]) PT Summary Assessment and Plan Potential Rehabilitation Potential Fair Summary Impairments Pain,ROM,Strength,Balance, Coordination,Sensation,Tone, Cognition,Bed Mobility, Transfers,Gait,Activity Tolerance Progress Towards Goals Slow Progress due to Medical Issues,Slow Progress due to Activity Tolerance,Slow Progress - Other Assessment Summary Pt required max 1-2 person assist during PT session. Pt demonstrated poor seated balance and unable to coordinate LE movement during gait/transfer, requiring maxA. PT is recommending SNF at this time for strength, balance, and increased mobility. Goals Bed Mobility Goal Minimal Assistance Transfer Goal Minimal Assistance,Front Wheeled Walker Gait Goal Minimal Assistance,Front Wheel Walker Gait Distance 50 Other Goals improve bed mobility, transfers, ambulation using LRAD 200 ft SBA up/down 2 steps R rail ascending SBA Days to Meet Goals 10 Frequency of Treatment Frequency Of Treatment Once a Day Treatment Plan Physical Therapy Treatment Plan Bed Mobility Training,Transfer Training,Gait Training, Therapeutic Exercise,Balance Retraining,Discharge Planning, Hot or Cold Pack,Neuromuscular Re-ed,Coordination Retraining Precautions Other Precautions falls Recommendations To Nursing Amount of Assist Needed 1 Person Assist Discharge Recommendations PT Discharge Recommendations SNF Rehab Transportation Needs at Discharge Wheelchair/Cabulance
[2024-04-25 17:05] LABS: Appearance Urine UA CLOUDY; Bilirubin Urine UA NEGATIVE (NEGATIVE); Color Urine UA YELLOW; Glucose Urine UA NEGATIVE (Negative); Ketones Urine UA NEGATIVE (NEGATIVE); Leukocyte Esterase Urine UA NEGATIVE (NEGATIVE); Nitrite Urine UA POSITIVE (Negative); Occult Blood Urine UA 1+ (Negative); Protein Urine UA 1+ (Negative); Specific Gravity Urine UA 1.025 (1.000-1.035); Urobilinogen Urine UA >=8.0 E.U./dL (0.2); pH Urine UA 6.5 (4.5-8.0)
[2024-04-25 17:16] LABS: Amorphous Sediment Urine 1+; Bacteria Urine Many (>30); Culture Indicated Urine Specimen Cultured; RBC Urine 1-5/HPF (0-5/HPF); Renal Epithelial Cells Urine 1-5/HPF (0-1/HPF); Squamous Epithelial Cell Urine 5-10 /HPF (0-5/HPF); Transitional Epi Cells Urine 1-5/HPF (0-5/HPF); Urine Volume 10mL (spun); WBC Urine 10-30/HPF (0-5/HPF)
[2024-04-25] MEDS: cefTRIAXone 1,000 MG in SODIUM CHLORIDE 0.9% 100 ML 200 MG IV (20:10)
[2024-04-26] VITALS (26 sets, daily range): BP systolic 103–145; BP diastolic 52–67; PULSE 60–70; RESP 16–19; TEMP 36.7–37.2; O2SAT 93–96
[2024-04-26] MEDS: LEVOTHYROXINE 100 MCG TABLET PO (06:43)
[2024-04-26] MEDS: SUCRALFATE 1 GM/10 ML ORAL SUSP PO ×4 (07:43→20:43)
--- NOTE | 2024-04-26 08:04 | P.PN_ITS ---
Subjective Subjective Interval history: Summary: Hospital course: This patient was admitted with melena. Initially it appeared that his bleed had stopped spontaneously. He was treated with PPI IV b.i.d.. He then developed maroon stools and did have a worsened blood loss anemia. He underwent EGD on April 19 which was unrevealing. His blood counts drifted down to a hemoglobin of 7 and just under 7. He was typed and crossed a early in his admission and found to have for antibodies for blood transfusions and no compatible blood in the entire [facility] region except for 1 unit which was given on April 19. Throughout his stay we continue to work with blood work [facility] and obtaining blood through a national search. He did develop some chest pain on the morning of the which improved with metoprolol. He has had soft blood pressures and been receiving intermittent IV fluid boluses. He had a recent admission at [facility] in [place] with an NSTEMI it was discussed with Cardiology on April 18. They recommended holding both antiplatelet agents and resuming only aspirin when medically stable to do so. He was had no recent PCI and was essentially deemed a medical therapy only patient at the time of his NSTEMI. He was also recently told by neurologist he had parkinson's. His Hg continued to trend up after transfusion. No bowel movements in a couple of days. S: No chest pain overnight, he denies dyspnea. No bowel movement since arrival to hospital. He has 1 unit of blood in house. Exam Vital Signs (past 8 hours): - 04/26/24 04:00 Pulse Rate 64 Respiratory Rate 18 Blood Pressure 137/64 Pulse Oximetry 95 Oxygen Flow Rate 0 Oxygen Delivery Method Room Air Oxygen Flow Rate 0 Narrative Exam Narrative: NAD, alert and oriented. Fluent speech. Lungs are clear, normal rate and effort. Heart is regular, no murmur gallop or rub. Abdomen is soft, non distended. Extremities are free of edema. Objective Labs 04/26/24 08:07 04/26/24 08:07 Labs: Laboratory Results - last 24 hr 04/25/24 16:46 Urine Color Yellow Urine Appearance Cloudy Urine pH 6.5 Ur Specific [place] 1.025 Urine Protein 1+ H Urine Glucose (UA) Negative Urine Ketones Negative Urine Occult Blood 1+ H Urine Nitrate Positive H Urine Bilirubin Negative Urine Urobilinogen >=8.0 Ur Leukocyte Esterase Negative Urine RBC 1-5/hpf Urine WBC 10-30/hpf H Ur Squamous Epith Cells 5-10 /hpf H Ur Transition Epith Cell 1-5/hpf Ur Renal Epithelial Cell 1-5/hpf H Amorphous Sediment 1+ Urine Bacteria Many (>30) H Ur Culture Indicated? Specimen cultured Vol Urine Centrifuged 10ml (spun) [facility] Social History household members: spouse Smoking Status: Never smoker Assessment & Plan Assessment & Plan narrative: 1. Upper GI bleed with melena, present on admission and active. 2. CAD, present on admission and stable. On chronic Plavix. 3. Mild aortic stenosis, present on admission and stable. 4. DM 2, present on admission and stable. 5. Obesity class 2 with BMI of 35.8, present on admission and active. 6. New chest pain, dissipated. Patient was at high risk for recurrent NSTEMI given his CAD and blood loss anemia. 7. Acute blood loss anemia secondary to GI bleed. New and active. 8. New Parkinson's disease recently diagnosed Plan: -Continue IV Protonix 40 IV q.12 hours. EGD was negative. Patient and family do not want prep for colonoscopy. Transition to PO PPI BID starting tomorrow, was going to today but with stomach pain will keep IV for now. -added sucralfate 1/9 AM -discussed with Cardiology at [facility] previously, we will hold dual antiplatelets, and when stable we will resume only aspirin. No further need for Plavix. Will restart baby aspirin on 04/26 daily. -serial hemoglobin, s/p 3U PRBC total. Started oral iron every other day. -Started sinemet trial. Follows with [facility]. Will continue. -advanced diet. Continue. -hold home antihypertensives except metoprolol, consider decreasing depending on BP though has been stabily soft and slightly better today. -no endoscopy after discussion noted below. -if rebleeding consider repeat CTA and discussion with family on goals of care and possible IR intervention as initial CTA showed possible bleeding from the stomach not visualized on EGD. -Will give last unit of blood given his complex history of CAD and very difficult crossmatching. Do not want this unit to and medically he will benefit with the CAD and limitations to medical therapy. Time-Based Coding :: [TOTAL MINUTES] spent with patient and on the chart (including review of chart, obtaining history, exam, reviewing outside data, placing orders, documenting exam and treatment plan, and counseling patient) on [DATE]. Quality VTE Deep Vein Thrombosis/Pulmonary Embolism Present on Admission: No
[2024-04-26 08:30] LABS: Hematocrit 25.2 % (41-53); Hemoglobin 8.9 g/dL (13.5-17.5); Mean Corpuscular HGB Conc 35.2 % (30-36); Mean Corpuscular Volume 93.7 fL (80-100); Platelet Count 230 X10^3/uL (150-400); Red Blood Cell Count 2.69 X10^6/uL (4.5-5.9); Red Cell Distribution Width 14.8 % (11.6-14.8); White Blood Cell Count 9.4 X10^3/uL (4.5-11.0)
[2024-04-26 08:31] LABS: Add Manual Diff / Slide Review YES; BUN Creatinine Ratio 13.3 (6-22); Blood Urea Nitrogen 10 mg/dL (9-20); Calcium 8.2 mg/dL (8.4-10.2); Carbon Dioxide 27 mmol/L (22-32); Chloride 103 mmol/L (98-107); Estimated Glomerular Filt Rate > 60 mL/min (>60); Glucose 119 mg/dL (80-110); HEMOLYSIS < 15 (0-50); Potassium 3.8 mmol/L (3.4-5.1); Sodium 135 mmol/L (137-145)
[2024-04-26] MEDS: ASPIRIN EC 81 MG TABLET PO (08:49)
[2024-04-26] MEDS: EZETIMIBE 10 MG TABLET PO (08:49)
[2024-04-26] MEDS: buPROPion XL 150 MG TAB PO (08:50)
[2024-04-26] MEDS: TAMSULOSIN 0.4 MG CAPSULE PO (08:50)
[2024-04-26] MEDS: RANOLAZINE 500 MG TAB.ER.12H PO ×2 (08:50→20:44)
[2024-04-26] MEDS: METOPROLOL ER 50 MG TABLET 100 MG PO (08:51)
[2024-04-26] MEDS: CARBIDOPA-LEVODOPA 25/100 TABLET 1 EACH PO ×3 (08:52→20:43)
[2024-04-26] MEDS: ATORVASTATIN 20 MG TABLET 80 MG PO (08:52)
[2024-04-26] MEDS: PANTOPRAZOLE 40 MG VIAL IV ×2 (08:52→20:43)
[2024-04-26] MEDS: DULOXETINE 30 MG CAPSULE PO (08:52)
[2024-04-26] MEDS: SODIUM CHLORIDE 0.9% FLUSH 10 ML IV ×2 (08:55→20:43)
[2024-04-26 09:04] LABS: Neutrophils Absolute Manual 6110 /uL (3000-5900); Total Cells Counted 100
[2024-04-26 09:06] LABS: Anisocytosis 1+; Polychromasia 1+
--- NOTE | 2024-04-26 11:38 | OT.IPNOTE ---
Pt getting blood at this time, not seen for OT.
--- NOTE | 2024-04-26 11:40 | PT-IP ANOTE ---
Attempted to see pt for PT this morning. Pt receiving blood transfusion. Also jluis states he is having lower abd discomfort causing her to worry about having bloody stools again. Will hold this am and attempt again in PM.
[2024-04-26] MEDS: INSULIN LISPRO 100 UNIT/ML 3ML VIAL SUBCUT ×2 (12:03→16:41)
[2024-04-26] MEDS: HYDROCODONE/ACET 5/325 TABLET 1 TAB PO ×2 (12:38→20:43)
--- NOTE | 2024-04-26 13:05 | PT.IPTN ---
Current Diagnoses Melena (04/18/24) Surgery Performed Operation Date: 04/19/24 16:00 Actual Procedures p Esophagogastroduodenoscopy - Hugo Spear MD Physical Therapy Treatment Note M2 PT-IP Current Condition Start: 04/23/24 12:18 Freq: NEEDED Status: Active Protocol: Document 04/23/24 11:15 AB (Rec: 04/23/24 12:35 AB [id number]) Physical Therapy Current Condition Current Condition Evaluation Date 04/23/24 Treatment Diagnosis melena; GI bleed; difficulty in walking Onset Date 04/18/24 M3 PT-IP Subjective Start: 04/23/24 12:18 Freq: NEEDED Status: Active Protocol: Document 04/26/24 15:05 AB (Rec: 04/26/24 16:41 AB [id number]) Subjective Physical Therapy Visit Type Type Treatment Note Visit Start Time 15:05 Visit Stop Time 15:35 Number of MARKETING ASSISTANT RETAIL DIVISION Visits 0 Physical Therapy Visit Comments Patient Comments agreeable to do PT M4 PT-IP Mobility and Gait Start: 04/23/24 12:18 Freq: NEEDED Status: Active Protocol: Document 04/26/24 15:05 AB (Rec: 04/26/24 16:41 AB [id number]) PT-Bed Mobility Assessment Supine to Sit Supine to Sit Maximum Assistance,2 Person Assistance,Head of Bed Elevated,Bedrails Scooting Scooting to Edge of Bed Dependent PT-Transfer Assessment Sit to and From Stand Sit to and from Stand Maximum Assistance,2 Person Assistance,Use of Upper Extremities Equipment Transfer Assistive Device Gait Belt,Front Wheeled Walker Orthotic/Prosthetic Devices or Brace: No Transfers Transfer Destination Chair Transfer Technique Stand Step Pivot Transfer Ability Level of Assist Maximum Assistance,2 Person Assistance,Use of Upper Extremities Comments Mobility Comments pt supine in bed and agreeable to do PT> BP: 109/53. O2 sat : 95% SC: 68. completed supine to sit max A x 2 and max cues. HOB elevated. pt required max A for sitting balanc evangelist EOB. increase posterior trunk leaning and L sided leaning. repositioned pt and only able to maintain sitting balance for ~ 5 sec and needing max A again for repositioning trunk and sitting balance. BP checked in sittin/62. completed sit to stand max A x 2 and max cues. completed stand pivot transfer max A x 2-3 and max cues. positioned pt on the chair. Pt checked: 116/59 . call light and table placed within reach. left pt with NAC. Gait Assessment Comments Gait Comments unable at this time. M5 PT-IP Objective Assessments Start: 04/23/24 12:18 Freq: NEEDED Status: Active Protocol: Document 04/23/24 11:15 AB (Rec: 04/23/24 12:35 AB [id number]) Orientation Orientation/Cognition Level of Alertness Alert Orientation Name,Place,Situation Language Function Ability Hard of Hearing Safety Awareness Decreased Safety Awareness Memory Description Short Term Impaired Gross Range of Motion Lower Extremity ROM Assessment Within Functional Limits Strength Lower Extremity Strength Hip 4-/5 Knee 4-/5 Muscle Tone Muscle Tone WNL Yes M6 PT-IP Treatment Start: 04/23/24 12:18 Freq: NEEDED Status: Active Protocol: Document 04/26/24 15:05 AB (Rec: 04/26/24 16:41 AB [id number]) Physical Therapy Treatment Education Education Provided Safety M7 PT-IP Assessment and Plan Start: 04/23/24 12:18 Freq: NEEDED Status: Active Protocol: Document 04/26/24 15:05 AB (Rec: 04/26/24 16:41 AB [id number]) PT Summary Assessment and Plan Potential Rehabilitation Potential Fair Summary Impairments Pain,ROM,Strength,Balance, Coordination,Sensation,Tone, Cognition,Bed Mobility, Transfers,Gait,Activity Tolerance Progress Towards Goals Slow Progress due to Medical Issues,Slow Progress due to Activity Tolerance Assessment Summary pt requiring max A x 2-3 with transfers using FWW. Recommending use of mechanical lift for transfers with nursing staff. pt will require SNF rehab to improve overall strength and mobility. Goals Bed Mobility Goal Minimal Assistance Transfer Goal Minimal Assistance,Front Wheeled Walker Gait Goal Minimal Assistance,Front Wheel Walker Gait Distance 50 Other Goals improve bed mobility, transfers, ambulation using LRAD 200 ft SBA up/down 2 steps R rail ascending SBA Days to Meet Goals 10 Frequency of Treatment Frequency Of Treatment Once a Day Treatment Plan Physical Therapy Treatment Plan Bed Mobility Training,Transfer Training,Gait Training, Therapeutic Exercise,Balance Retraining,Discharge Planning, Hot or Cold Pack,Neuromuscular Re-ed,Coordination Retraining Precautions Other Precautions falls Recommendations To Nursing Amount of Assist Needed Mechanical Lift Discharge Recommendations PT Discharge Recommendations SNF Rehab Transportation Needs at Discharge Wheelchair/Cabulance
--- NOTE | 2024-04-26 13:15 | DIET.PN1 ---
Dietary Progress Note Assessment: F/u. Pt with some variable recorded PO intakes. At previous visit pt was open to trying ONS. Will trial to support EER. Ht: 175.26 cm Wt: 110 kg BMI: 35.8 UBW: 119.55 kg per spouse 1 month ago (-8% loss within 1 month, severe) Last BM: 04/22/24 (04/22/24 22:00) MNA: 10 Kevin Score: 21 Diet: 04/22/24 Dinner Carbohydrate Consistent Diet Diet Modifications: No milk please Carbohydrate level: Large (4 CHO) Reflex DM orders: No Food Texture: Level 7 - Regular Liquid Consistency: Level 0 - Thin 04/25/24 Dinner Courtesy Tray (Peds, comfort care) Diet Modifications: Nutrition Percent Meal Consumed 50% 04/25/24 18:00 Percent Meal Consumed patient deline dinner 04/24/24 18:00 Percent Meal Consumed 50% 04/24/24 13:48 Labs: RBC 2.69 X10^6/uL (4.5-5.9) L 04/26/24 08:07 Hgb 8.9 g/dL (13.5-17.5) L 04/26/24 08:07 Hct 25.2 % (41-53) L 04/26/24 08:07 Creatinine 0.75 mg/dL (0.66-1.25) 04/26/24 08:07 Lactate 1.8 mmol/L (0.7-2.1) 04/18/24 09:00 Nutrition Diagnosis: Unintentional weight loss related to recent hospital admissions aeb -8% weight loss (severe) Interventions: 1. ONS 1-2x/day EER: 2000 kcals (MSJx1.25 vs 15 kcals/kg per BMI) 80-90 g (1-1.2 g/kg) Monitoring/Evaluations: POs, ONS tolerance Electronically Signed by: Whit Foreman 04/26/24 13:[address] [id number]
--- NOTE | 2024-04-26 15:37 | OT.IP.TRT ---
Current Diagnoses Melena (04/18/24) Surgery Performed Operation Date: 04/19/24 16:00 Actual Procedures p Esophagogastroduodenoscopy - Hugo Spear MD Occupational Therapy Treatment Note M2 OT-IP Current Condition Start: 04/24/24 12:07 Freq: Status: Active Protocol: Document 04/24/24 12:08 [facility] (Rec: 04/24/24 12:23 [facility] [id number]) Occupational Therapy Current Condition Current Condition Evaluation Date 04/24/24 Treatment Diagnosis Melana, upper GI bleed, Parkinson Diagnosis Onset Date 04/18/24 M3 OT- IP Subjective and Pain Start: 04/24/24 12:07 Freq: Status: Active Protocol: Document 04/26/24 15:29 [facility] (Rec: 04/26/24 15:36 [facility] [id number]) OT- Subjective Occupational Therapy Visit Type Type Treatment Note Visit Start Time 15:03 Visit Stop Time 15:29 Occupational Therapy Visit Comments Patient Comments Pt agreed to get up to the recliner. Patient/Caregiver Goals TO get better. OT Pain Assessment Pain When Pain Assessed At Rest Pain Present Pain Present Pain Reported Location buttock Pain Behaviors Facial Grimacing M4 OT- IP ADL's Start: 04/24/24 12:07 Freq: Status: Active Protocol: Document 04/26/24 15:29 [facility] (Rec: 04/26/24 15:36 [facility] [id number]) OT [id number] Comments OT Self-Feeding Comments Not at meal time. OT ADL-Grooming Comments OT Grooming Comments Pt able to reach for the wash cloth so able to wash his face . OT ADL-Oral Care Comments Oral Care Comments Not performed. OT ADL-Dressing General Eval Lower Body Dressing Ability Total Assistance Areas Needing Assistance Socks OT ADL-Toileting General Evaluation Toileting Ability Total Assistance Comments OT Toileting Comments Use of guevara at this time. Best to use lionel lift to transfer to the BSC. OT ADL-Bathing Comments OT Bathing Comments Sponge bath more appropriate at this time. M5 OT- IP IADL's Start: 04/24/24 12:07 Freq: Status: Active Protocol: Document 04/24/24 12:08 [facility] (Rec: 04/24/24 12:23 [facility] [id number]) OT-Instrumental Activities of Daily Living Home Safety Awareness Home Safety Comments At times pt has difficulty to get his words out. Medication Management Medication Management Caregiver Administers Money Management Money Management Caregiver Provides Assistance Meal Preparation Meal Preparation Caregiver Provides Assist Framing Mill Operator Framing Mill Operator Caregiver Provides Assist M6 OT- IP Functional Cognition Start: 04/24/24 12:07 Freq: Status: Active Protocol: Document 04/26/24 15:29 [facility] (Rec: 04/26/24 15:36 [facility] [id number]) Cognitive Factors Limiting Selfcare Function Cognitive Ability Level of Alertness Alert Patient Orientation Name Attention Span Ability Capable of Focused Attention, Capable of Sustained Attention Cognitive Comments Cognitive Assessment Comments Pt very drowsy, tired, but able to follow step by step commands for bed mobility needs. M7 OT- IP Mobility and Balance Start: 04/24/24 12:07 Freq: Status: Active Protocol: Document 04/26/24 15:29 [facility] (Rec: 04/26/24 15:36 [facility] [id number]) OT- Bed Mobility Assessment Supine to Sit Supine to Sit Assist Maximum Assistance,2 Person Assistance Scooting Scooting to Edge of Bed Maximum Assistance,2 Person Assistance OT-Transfer Assessment Sit to and From Stand Sit to and from Stand Maximum Assistance,1 Person Assistance,2 Person Assistance Transfers Transfer Ability Maximum Assistance,1 Person Assistance,2 Person Assistance Technique Transfer Destination Bed,Chair Devices Transfer Assistive Devices Gait Belt,Front Wheeled Walker Comments Mobility Comments MAX AX 2 to get to the edge of the bed. Pt heavily leans to the left. Pt MAXA X 2 to stand and third person to assist as needing assist to stand, balance, and to guide the FWW. BP with head of bed up 109/ 53, sitting at edge of bed 114 /62 and after transfer to the recliner 116/59. Left pt with nursing aid to complete set- up , call light,etc. OT- Balance Assessment Sitting Balance and Reactions Static Sitting Balance Ability Poor Dynamic Sitting Balance Ability Poor Standing Balance and Reactions Static Standing Balance Ability Poor Dynamic Standing Balance Ability Poor Comments Other Balance Tests/Deviations/Treatment Pt heavily leans to the left : and needign cues and physical assist to maintain his midline . Pt heavily pushes and leans to the left while up on his feet with the FWW and needing MAX X3 to assist for transfer. At this time best to use lionel lift. M8 OT- IP Objective Assessments Start: 04/24/24 12:07 Freq: Status: Active Protocol: Document 04/24/24 12:08 [facility] (Rec: 04/24/24 12:23 [facility] [id number]) OT Gross Range of Motion Upper Extremity Range of Motion Assessment Within Functional Limits OT Strength Upper Extremity Strength Assessment Within Functional Limits OT- Coordination Assessment Upper Extremity Finger to Nose Test Right UE Impaired Comments Coordination Comments right hand slightly implaired M9 OT- IP Assessment and Plan Start: 04/24/24 12:07 Freq: Status: Active Protocol: Document 04/26/24 15:29 [facility] (Rec: 04/26/24 15:36 [facility] [id number]) OT Summary Assessment and Plan Potential Rehabilitation Potential Good Analytic Complexity at Evaluation Moderate Summary OT Impairments Strength,Balance,Functional Cognition,Functional Mobility, Self-Feeding,Grooming,Dressing ,Toileting,Bathing,Toilet Transfers,Shower Transfers, Activity Tolerance Progress Towards Goals Slow Progress due to Medical Issues,Slow Progress due to Activity Tolerance,Slow Progress due to Cognition Assessment Summary Pt will benefit from skilled rehab when medically stable. Goals Self-Feeding Goal Independent Grooming Goal Independent Dressing Goal Minimal Assistance Toileting Goal Minimal Assistance Bathing Goal Moderate Assistance Toilet Transfer Goal Standby Assistance Shower Transfer Goal Contact Guard Assistance Days to Meet Goals 40 Frequency of Treatment Other frequency 5x/week Treatment Plan OT Treatment Plan ADL Training,Functional Cognition Training,Functional Mobility,Patient/Family Education,Discharge Planning Other Treatment Recommendations and Next Transfer to [facility] with MODA X2 Treatment Focus with FWW. Discharge Recommendations OT Discharge Recommendations SNF Rehab Transportation Needs at Discharge Wheelchair/Cabulance versus stretcher
--- NOTE | 2024-04-26 16:09 | CM.DPNOTE ---
Addendum entered by MARYCRUZ Cramer 04/26/24 16:28: Amended: Disregard transport time on 04/29 - time still pending. RADHA Fam Original Note: DCP Continued: Reviewed EMR and team rounds for pt?s medical status. DCP spoke with [facility] Admissions, it is reported that pt can be accepted on Monday, 04/29 for Skilled Rehab. DCP spoke with pt's daughter, Luci, and discussed dc plans to SNF. Pt daughter and agreeable with plans for [facility] on 04/29 before possible discharge to an [facility]. Plan: Anticipating discharge to [facility] on 04/29 at 1:30pm. CM Team will continue to follow for coordination of discharge plans. RADHA Fam
[2024-04-26] MEDS: cefTRIAXone 1,000 MG in SODIUM CHLORIDE 0.9% 100 ML 200 MG IV (18:25)
[2024-04-27] VITALS (15 sets, daily range): BP systolic 106–133; BP diastolic 53–65; PULSE 58–87; RESP 17–24; TEMP 35.9–36.8; O2SAT 93–97
[2024-04-27 04:37] LABS: Hematocrit 29.2 % (41-53); Hemoglobin 10.1 g/dL (13.5-17.5); Mean Corpuscular HGB Conc 34.7 % (30-36); Mean Corpuscular Hemoglobin 31.9 PG (26-34); Platelet Count 209 X10^3/uL (150-400); Red Blood Cell Count 3.17 X10^6/uL (4.5-5.9); Red Cell Distribution Width 15.7 % (11.6-14.8); White Blood Cell Count 7.8 X10^3/uL (4.5-11.0)
[2024-04-27] MEDS: LEVOTHYROXINE 100 MCG TABLET PO (06:24)
[2024-04-27] MEDS: SUCRALFATE 1 GM/10 ML ORAL SUSP PO ×4 (08:12→20:59)
[2024-04-27] MEDS: CARBIDOPA-LEVODOPA 25/100 TABLET 1 EACH PO ×3 (09:12→20:58)
[2024-04-27] MEDS: TAMSULOSIN 0.4 MG CAPSULE PO (09:12)
[2024-04-27] MEDS: METOPROLOL ER 50 MG TABLET 100 MG PO (09:13)
[2024-04-27] MEDS: ASPIRIN EC 81 MG TABLET PO (09:13)
[2024-04-27] MEDS: buPROPion XL 150 MG TAB PO (09:13)
[2024-04-27] MEDS: SODIUM CHLORIDE 0.9% FLUSH 10 ML IV ×2 (09:14→20:58)
[2024-04-27] MEDS: DULOXETINE 30 MG CAPSULE PO (09:14)
[2024-04-27] MEDS: ATORVASTATIN 20 MG TABLET 80 MG PO (09:14)
[2024-04-27] MEDS: EZETIMIBE 10 MG TABLET PO (09:14)
[2024-04-27] MEDS: RANOLAZINE 500 MG TAB.ER.12H PO ×2 (09:14→20:58)
[2024-04-27] MEDS: PANTOPRAZOLE 40 MG VIAL IV (09:15)
[2024-04-27] MEDS: FERROUS SULFATE 325 MG TABLET PO (09:16)
--- NOTE | 2024-04-27 11:50 | PT.IPTN ---
Current Diagnoses Melena (04/18/24) Surgery Performed Operation Date: 04/19/24 16:00 Actual Procedures p Esophagogastroduodenoscopy - Hugo Spear MD Physical Therapy Treatment Note M2 PT-IP Current Condition Start: 04/23/24 12:18 Freq: NEEDED Status: Active Protocol: Document 04/23/24 11:15 AB (Rec: 04/23/24 12:35 AB [id number]) Physical Therapy Current Condition Current Condition Evaluation Date 04/23/24 Treatment Diagnosis melena; GI bleed; difficulty in walking Onset Date 04/18/24 M3 PT-IP Subjective Start: 04/23/24 12:18 Freq: NEEDED Status: Active Protocol: Document 04/27/24 11:50 AB (Rec: 04/27/24 13:22 AB [id number]) Subjective Physical Therapy Visit Type Type Treatment Note Visit Start Time 11:50 Visit Stop Time 12:15 Number of PAINTER AND DECORATOR APPRENTICE Visits 0 Physical Therapy Visit Comments Patient Comments agreeable to do PT M4 PT-IP Mobility and Gait Start: 04/23/24 12:18 Freq: NEEDED Status: Active Protocol: Document 04/27/24 11:50 AB (Rec: 04/27/24 13:22 AB [id number]) PT-Transfer Assessment Sit to and From Stand Sit to and from Stand Maximum Assistance,2 Person Assistance,Use of Upper Extremities Equipment Transfer Assistive Device Front Wheeled Walker Orthotic/Prosthetic Devices or Brace: No Comments Mobility Comments pt sitting on the chair and daugher in room. pt agreed to do PT. pt completed seated LE exercises: hip flexion, knee flexion/ext, ankle DF/PF. completed sitting balance/ tolerance: static sitting without back support ; cued pt to get to upright midline position and correct posterior trunk leaning and L leaning. pt able to reach PT hand in different directions with R and then L hands while maintaining sitting balance. pt attempted to reach down to his feet with B hands. pt completed sit to stand x 3. unable to stand on first attempt with max A. NAC came in to assist. sit to stand max A x 2 and max cues. cued to use FWW for support and lean forward. pt tolerated ~ 5 sec standing and needed to sit down. pt needed to be cleaned up. NAC and nurse in room. pt completed sit to stand again max A x 2 and max cues. max A x 2 for standing balance using fWW for support while NAC assisted pt with hygiene care and pad change. set up pt for lunch. Left pt with NAC. M5 PT-IP Objective Assessments Start: 04/23/24 12:18 Freq: NEEDED Status: Active Protocol: Document 04/23/24 11:15 AB (Rec: 04/23/24 12:35 AB [id number]) Orientation Orientation/Cognition Level of Alertness Alert Orientation Name,Place,Situation Language Function Ability Hard of Hearing Safety Awareness Decreased Safety Awareness Memory Description Short Term Impaired Gross Range of Motion Lower Extremity ROM Assessment Within Functional Limits Strength Lower Extremity Strength Hip 4-/5 Knee 4-/5 Muscle Tone Muscle Tone WNL Yes M6 PT-IP Treatment Start: 04/23/24 12:18 Freq: NEEDED Status: Active Protocol: Document 04/27/24 11:50 AB (Rec: 04/27/24 13:22 AB [id number]) Physical Therapy Treatment Exercises Exercises Ankle Pumps,Seated Knee Flexion/Extension Education Education Provided Safety M7 PT-IP Assessment and Plan Start: 04/23/24 12:18 Freq: NEEDED Status: Active Protocol: Document 04/27/24 11:50 AB (Rec: 04/27/24 13:22 AB [id number]) PT Summary Assessment and Plan Potential Rehabilitation Potential Fair Summary Impairments Pain,ROM,Strength,Balance, Coordination,Sensation,Tone, Cognition,Bed Mobility, Transfers,Gait,Activity Tolerance Assessment Summary Pt requiring max A x 2 for sit to stand and continues to have decrease activity tolerance affecting mobility and assistance needed. pt will benefit from SNF rehab to improve overall strength and function. Goals Bed Mobility Goal Minimal Assistance Transfer Goal Minimal Assistance,Front Wheeled Walker Gait Goal Minimal Assistance,Front Wheel Walker Gait Distance 50 Other Goals improve bed mobility, transfers, ambulation using LRAD 200 ft SBA up/down 2 steps R rail ascending SBA Days to Meet Goals 10 Frequency of Treatment Frequency Of Treatment Once a Day Treatment Plan Physical Therapy Treatment Plan Bed Mobility Training,Transfer Training,Gait Training, Therapeutic Exercise,Balance Retraining,Discharge Planning, Hot or Cold Pack,Neuromuscular Re-ed,Coordination Retraining Precautions Other Precautions falls Recommendations To Nursing Amount of Assist Needed Mechanical Lift Discharge Recommendations PT Discharge Recommendations SNF Rehab Transportation Needs at Discharge Wheelchair/Cabulance
[2024-04-27] MEDS: INSULIN LISPRO 100 UNIT/ML 3ML VIAL SUBCUT (12:06)
--- NOTE | 2024-04-27 12:42 | CM.DPNOTE ---
Addendum entered by MARYCRUZ Copeland 04/27/24 14:22: ADD: Fax back up and working and faxed clinicals to [facility] to review for SNF auth and called and confirmed [facility] CM assigned this weekend is Alessandra [phone] and updated Alessandra on plan of [facility] Monday and she will review today or tomorrow and update SW on SNF auth by tomorrow Monday. BF Addendum entered by MARYCRUZ Copeland 04/27/24 12:48: ADD: Attempted to fax [facility] for SNF auth but [employer] and regular fax machines are not working and msg left for IS to attempt to fix. Will need to fax clinicals to [facility] for SNF auth prior to d/c to [facility] Monday. BF Original Note: DCP SNF Planning: Per MD, met with pt and family bedside and had discussion about SNF at d/c and then that family is looking into moving patient into [facility] likely after SNF. PASRR completed and MD signed due to exempted hospital discharge due to depression. Fax machines not working today so PASRR not faxed to PASRR coordinator just for review yet. Plan: Patient to d/c to [facility] Monday04/29/24 via facility van and then likely into LTC facility. MARYCRUZ Copeland
--- NOTE | 2024-04-27 17:15 | PM.PN.1 ---
Subjective Subjective Date Patient Seen: 04/27/24 Time Patient Seen: 08:13 Interval history: Summary: Hospital course: This patient was admitted with melena. Initially it appeared that his bleed had stopped spontaneously. He was treated with PPI IV b.i.d.. He then developed maroon stools and did have a worsened blood loss anemia. He underwent EGD on April 19 which was unrevealing. His blood counts drifted down to a hemoglobin of 7 and just under 7. He was typed and crossed a early in his admission and found to have for antibodies for blood transfusions and no compatible blood in the entire [facility] region except for 1 unit which was given on April 19. Throughout his stay we continue to work with blood work [facility] and obtaining blood through a national search. He did develop some chest pain on the morning of the which improved with metoprolol. He has had soft blood pressures and been receiving intermittent IV fluid boluses. He had a recent admission at [facility] in [place] with an NSTEMI it was discussed with Cardiology on April 18. They recommended holding both antiplatelet agents and resuming only aspirin when medically stable to do so. He was had no recent PCI and was essentially deemed a medical therapy only patient at the time of his NSTEMI. He was also recently told by neurologist he had parkinson's. His Hg continued to trend up after transfusion. No bowel movements in a couple of days. S: The patient had dark to black stools this morning but no further active bleeding. Hematocrit was improved. He is otherwise without complaints. He is seen with family, acknowledged his declining functional status and need for ongoing placement following discharge. Exam Vital Signs (past 8 hours): - 04/27/24 10:14 04/27/24 11:13 04/27/24 11:13 Temperature Pulse Rate 76 64 Respiratory Rate Blood Pressure 123/63 116/57 L Pulse Oximetry 93 04/27/24 12:00 04/27/24 12:10 04/27/24 15:37 Temperature 98.3 F Pulse Rate 63 67 Respiratory Rate 17 Blood Pressure 116/53 L Pulse Oximetry 93 95 93 04/27/24 15:38 04/27/24 15:38 04/27/24 16:01 Temperature 98.1 F Pulse Rate 67 67 Respiratory Rate 20 Blood Pressure 106/59 L 106/59 L Pulse Oximetry 94 97 Oxygen Delivery Method Room Air Oxygen Flow Rate 1 Narrative Exam Narrative: NAD, alert and oriented. Fluent speech. Lungs are clear, normal rate and effort. Heart is regular, no murmur gallop or rub. Abdomen is soft, non distended. Extremities are free of edema. Objective Labs 04/27/24 04:20 04/26/24 08:07 Labs: Laboratory Results - last 24 hr 04/27/24 04:20 WBC 7.8 RBC 3.17 L Hgb 10.1 L Hct 29.2 L MCV 92.0 MCH 31.9 MCHC 34.7 RDW 15.7 H Plt Count 209 PFSH Social History household members: spouse Smoking Status: Never smoker Assessment & Plan Assessment & Plan narrative: 1. Upper GI bleed with melena, present on admission and active. 2. CAD, present on admission and stable. On chronic Plavix. 3. Mild aortic stenosis, present on admission and stable. 4. DM 2, present on admission and stable. 5. Obesity class 2 with BMI of 35.8, present on admission and active. 6. New chest pain, dissipated. Patient was at high risk for recurrent NSTEMI given his CAD and blood loss anemia. 7. Acute blood loss anemia secondary to GI bleed. New and improving. 8. New Parkinson's disease recently diagnosed 9. Urinary tract infection, Gram-negative bacilli. Continue IV ceftriaxone started on 04/25/2024 pending ID and sensitivities. Plan: -Continue Protonix 40 IV q.12 hours, change to p.o.. EGD was negative on 04/19/2024. Patient and family do not want prep for colonoscopy. -added sucralfate 1/ AM -discussed with Cardiology at [facility] previously, we will hold dual antiplatelets, and when stable we will resume only aspirin. No further need for Plavix. Will restart baby aspirin on 04/26 daily. -serial hemoglobin, s/p 4U PRBC total. Started oral iron every other day. -continue sinemet trial which has improved mobility but not mentation. Follows with [facility] neurology. Will continue. -advanced diet. Continue. -hold home antihypertensives except metoprolol, consider decreasing depending on BP though has been stabily soft and slightly better today. -no endoscopy after discussion noted below. -if rebleeding consider repeat CTA and discussion with family on goals of care and possible IR intervention as initial CTA showed possible bleeding from the stomach not visualized on EGD. Quality VTE Deep Vein Thrombosis/Pulmonary Embolism Present on Admission: No IH PROFEE Charge codes Subsequent inpatient/observation care: [id number]
[2024-04-27] MEDS: HYDROCODONE/ACET 5/325 TABLET 1 TAB PO (18:00)
[2024-04-27] MEDS: cefTRIAXone 1,000 MG in SODIUM CHLORIDE 0.9% 100 ML 200 MG IV (18:07)
[2024-04-27] MEDS: ACETAMINOPHEN 325 MG TABLET 650 MG PO (20:58)
[2024-04-28] VITALS (8 sets, daily range): BP systolic 105–141; BP diastolic 53–70; PULSE 59–96; RESP 12–19; TEMP 36.3–37.2; O2SAT 94–96
[2024-04-28 05:02] LABS: Hematocrit 28.5 % (41-53); Hemoglobin 9.9 g/dL (13.5-17.5); Mean Corpuscular HGB Conc 34.6 % (30-36); Mean Corpuscular Hemoglobin 31.9 PG (26-34); Mean Corpuscular Volume 92.3 fL (80-100); Platelet Count 204 X10^3/uL (150-400); Red Blood Cell Count 3.09 X10^6/uL (4.5-5.9); Red Cell Distribution Width 16.3 % (11.6-14.8); White Blood Cell Count 6.7 X10^3/uL (4.5-11.0)
[2024-04-28] MEDS: LEVOTHYROXINE 100 MCG TABLET PO (05:37)
[2024-04-28] MEDS: INSULIN LISPRO 100 UNIT/ML 3ML VIAL SUBCUT ×3 (07:53→17:01)
[2024-04-28] MEDS: SUCRALFATE 1 GM/10 ML ORAL SUSP PO ×4 (07:53→20:33)
[2024-04-28] MEDS: CARBIDOPA-LEVODOPA 25/100 TABLET 1 EACH PO ×3 (08:26→20:33)
[2024-04-28] MEDS: EZETIMIBE 10 MG TABLET PO (08:26)
[2024-04-28] MEDS: buPROPion XL 150 MG TAB PO (08:27)
[2024-04-28] MEDS: METOPROLOL ER 50 MG TABLET 100 MG PO (08:27)
[2024-04-28] MEDS: ASPIRIN EC 81 MG TABLET PO (08:27)
[2024-04-28] MEDS: DULOXETINE 30 MG CAPSULE PO (08:27)
[2024-04-28] MEDS: TAMSULOSIN 0.4 MG CAPSULE PO (08:28)
[2024-04-28] MEDS: ATORVASTATIN 20 MG TABLET 80 MG PO (08:28)
[2024-04-28] MEDS: RANOLAZINE 500 MG TAB.ER.12H PO ×2 (08:29→20:33)
[2024-04-28] MEDS: HYDROCODONE/ACET 5/325 TABLET 1 TAB PO (09:08)
[2024-04-28] MEDS: SODIUM CHLORIDE 0.9% FLUSH 10 ML IV ×2 (10:39→20:33)
--- NOTE | 2024-04-28 11:55 | P.PN_ITS ---
Subjective Subjective Date Patient Seen: 04/28/24 Time Patient Seen: 08:05 Interval history: Summary: Hospital course: This patient was admitted with melena. Initially it appeared that his bleed had stopped spontaneously. He was treated with PPI IV b.i.d.. He then developed maroon stools and did have a worsened blood loss anemia. He underwent EGD on April 19 which was unrevealing. His blood counts drifted down to a hemoglobin of 7 and just under 7. He was typed and crossed a early in his admission and found to have for antibodies for blood transfusions and no compatible blood in the entire [facility] region except for 1 unit which was given on April 19. Throughout his stay we continue to work with blood work [facility] and obtaining blood through a national search. He did develop some chest pain on the morning of the which improved with metoprolol. He has had soft blood pressures and been receiving intermittent IV fluid boluses. He had a recent admission at [facility] in [place] with an NSTEMI it was discussed with Cardiology on April 18. They recommended holding both antiplatelet agents and resuming only aspirin when medically stable to do so. He was had no recent PCI and was essentially deemed a medical therapy only patient at the time of his NSTEMI. He was also recently told by neurologist he had parkinson's. His Hg continued to trend up after transfusion. No bowel movements in a couple of days. S: No further bleeding or melena reported. He is alert and appropriate though appears intermittently mildly confused. Exam Vital Signs (past 8 hours): - 04/28/24 04:00 04/28/24 07:00 04/28/24 08:00 Temperature 98.3 F Pulse Rate 62 66 Respiratory Rate 12 19 Blood Pressure 124/60 141/70 H Pulse Oximetry 96 96 Oxygen Delivery Method Room Air Oxygen Flow Rate 0 0 04/28/24 08:27 04/28/24 09:33 Temperature Pulse Rate 84 85 Respiratory Rate Blood Pressure 140/70 140/70 Pulse Oximetry Oxygen Delivery Method Oxygen Flow Rate Oxygen Delivery Method Room Air Oxygen Flow Rate 0 Narrative Exam Narrative: NAD, alert and oriented. Fluent speech. Lungs are clear, normal rate and effort. Heart is regular, no murmur gallop or rub. Abdomen is soft, non distended. Extremities are free of edema. Objective Labs 04/28/24 04:25 04/26/24 08:07 Labs: Laboratory Results - last 24 hr 04/28/24 04:25 WBC 6.7 RBC 3.09 L Hgb 9.9 L Hct 28.5 L MCV 92.3 MCH 31.9 MCHC 34.6 RDW 16.3 H Plt Count 204 PFSH Social History household members: spouse Smoking Status: Never smoker Assessment & Plan Assessment & Plan narrative: 1. Upper GI bleed with melena, present on admission and stable without recurrence on PPI therapy. No source found on EGD. Declines colonoscopy and not indicated at. 2. Acute blood loss anemia secondary to GI bleed, s/p 4U PRBC total. New and stable. 3. CAD, present on admission and stable. On chronic clopidogrel, held due to bleeding, currently on aspirin 81 mg daily. 4. Mild aortic stenosis, present on admission and stable. 5. DM 2, present on admission and stable. 6. Obesity class 2 with BMI of 35.8, present on admission and active. 7. New chest pain, resolved. Patient ruled out for RI, considered high risk for recurrent NSTEMI given his CAD and blood loss anemia. 8. New Parkinson's disease recently diagnosed. Currently on trial of carbidopa levodopa. Continue PT/OT. 9. Urinary tract infection do this epidermidis, pansensitive. Continue IV ceftriaxone started on 04/25/2024, switch to oral levofloxacin 500 mg daily (avoid doxycycline given risk of pill esophagitis recent GI bleed, nitrofurantoin given low urinary penetration). 10. Intermittent mild confusion, possible infectious encephalopathy versus early cognitive impairment Plan: -Continue Protonix 40mg BID and sucralfate -Continue aspirin 81mg daily (hold clopidogrel) -Continue oral iron every other day. -Continue carbidopa/levodopa TID which has improved mobility but not mentation. Follows with [facility] neurology. Continue at discharge. -Restart lisinopril 5mg daily -if rebleeding consider repeat CTA and discussion with family on goals of care and possible IR intervention as initial CTA showed possible bleeding from the stomach not visualized on EGD. -DC to SNF 04/29/2024 if stable Quality VTE Deep Vein Thrombosis/Pulmonary Embolism Present on Admission: No PROFEE Charge codes Subsequent inpatient/observation care: [id number]
--- NOTE | 2024-04-28 12:22 | PT.IPTN ---
Current Diagnoses Melena (04/18/24) Surgery Performed Operation Date: 04/19/24 16:00 Actual Procedures p Esophagogastroduodenoscopy - Hugo Spear MD Physical Therapy Treatment Note M2 PT-IP Current Condition Start: 04/23/24 12:18 Freq: NEEDED Status: Active Protocol: Document 04/23/24 11:15 AB (Rec: 04/23/24 12:35 AB [id number]) Physical Therapy Current Condition Current Condition Evaluation Date 04/23/24 Treatment Diagnosis melena; GI bleed; difficulty in walking Onset Date 04/18/24 M3 PT-IP Subjective Start: 04/23/24 12:18 Freq: NEEDED Status: Active Protocol: Document 04/28/24 12:15 MB (Rec: 04/28/24 12:22 MB [id number]) Subjective Physical Therapy Visit Type Type Treatment Note Visit Start Time 12:15 Visit Stop Time 12:19 Number of TAX ASSISTANT Visits 0 Physical Therapy Visit Comments Patient Comments Pt attempting to get up to HOB with nsg and PT assists, pt getting ready to eat lunch. M4 PT-IP Mobility and Gait Start: 04/23/24 12:18 Freq: NEEDED Status: Active Protocol: Document 04/28/24 12:15 MB (Rec: 04/28/24 12:22 MB [id number]) PT-Bed Mobility Assessment Scooting Scooting Up and Down in Bed Contact Guard Assistance PT-Transfer Assessment Comments Mobility Comments Bed placed in Trendelenburg and bottom of bed bent and pt scoots himself up to HOB with cues and use of head rails, then bed placed in cardiac chair position for lunch. M5 PT-IP Objective Assessments Start: 04/23/24 12:18 Freq: NEEDED Status: Active Protocol: Document 04/23/24 11:15 AB (Rec: 04/23/24 12:35 AB [id number]) Orientation Orientation/Cognition Level of Alertness Alert Orientation Name,Place,Situation Language Function Ability Hard of Hearing Safety Awareness Decreased Safety Awareness Memory Description Short Term Impaired Gross Range of Motion Lower Extremity ROM Assessment Within Functional Limits Strength Lower Extremity Strength Hip 4-/5 Knee 4-/5 Muscle Tone Muscle Tone WNL Yes M6 PT-IP Treatment Start: 04/23/24 12:18 Freq: NEEDED Status: Active Protocol: Document 04/28/24 12:15 MB (Rec: 04/28/24 12:22 MB [id number]) Physical Therapy Treatment Other Treatments Other Treatment Performed Bed mobility M7 PT-IP Assessment and Plan Start: 04/23/24 12:18 Freq: NEEDED Status: Active Protocol: Document 04/28/24 12:15 MB (Rec: 04/28/24 12:22 MB [id number]) PT Summary Assessment and Plan Potential Rehabilitation Potential Fair Summary Impairments Pain,ROM,Strength,Balance, Coordination,Sensation,Tone, Cognition,Bed Mobility, Transfers,Gait,Activity Tolerance Assessment Summary Pt requires less help to scoot to HOB this afternoon. Con't PT efforts for more mobility as pt appropriate. Goals Bed Mobility Goal Minimal Assistance Transfer Goal Minimal Assistance,Front Wheeled Walker Gait Goal Minimal Assistance,Front Wheel Walker Gait Distance 50 Other Goals improve bed mobility, transfers, ambulation using LRAD 200 ft SBA up/down 2 steps R rail ascending SBA Days to Meet Goals 10 Frequency of Treatment Frequency Of Treatment Once a Day Treatment Plan Physical Therapy Treatment Plan Bed Mobility Training,Transfer Training,Gait Training, Therapeutic Exercise,Balance Retraining,Discharge Planning, Hot or Cold Pack,Neuromuscular Re-ed,Coordination Retraining Precautions Other Precautions falls Recommendations To Nursing Amount of Assist Needed Mechanical Lift Discharge Recommendations PT Discharge Recommendations SNF Rehab Transportation Needs at Discharge Wheelchair/Cabulance
[2024-04-28] MEDS: PANTOPRAZOLE DR 40 MG TABLET PO ×2 (12:28→20:35)
--- NOTE | 2024-04-28 16:37 | CM.DANOTE ---
Auth obtained from [place] for SNF placement, referred to placement team for SNF- Spoke with Essie at and she was given auth number: [id number] and can transport tomorrow at 1130 if dc appropriate. Notified Hospitalist. Discharge Planning/Care Management CM Discharge Assessment Start: 04/19/24 11:47 Freq: Status: Active Protocol: Document 04/19/24 11:47 MW (Rec: 04/19/24 11:56 MW [id number]) Discharge Planning Assessment Assigned Civil Engineering Teacher MARYCRUZ Marcial DPOA/Assigned Designee Name Myrtle, Spouse Contact Information [phone] Advance Directives? No History Provided By Patient,Family Member,Medical Record Prior Living Arrangements House Comment [place] Household Members spouse Type of transporation used prior to Relies on Others admit Facility Name Admitted From: [facility] Willing to Return to Facility? Yes: Staying after post-PA hospitilization Independent with ADL's No Is patient alert and oriented? Yes Needs Assistance With Bathing,Grooming,Meal Prep, Toileting,Managing Medications ,Home Chores / Shopping Caregiver for Another No DME Already Rented / Owned FWW / Walker Patient/Family Preference LTAC Barriers to Discharge No Discharge Plan Sales Exhibitor Care Facility Transportation Arrangement Pending dispo - family vs. facility Referrals Initiated Other Additional Comment A Place for [facility] - Sales Exhibitor Marketing Communications Specialist Whiteboard Updated in Patient Room with Yes name and ext. # of Civil Engineering Teacher Comment [phone] Review Status In Process Please Provide Date Initial DC 04/19/24 Assessment Was Performed Next Review Type Continued Stay Review
[2024-04-28] MEDS: ACETAMINOPHEN 325 MG TABLET 650 MG PO (20:33)
[2024-04-29] VITALS: BP 122/61; PULSE 67; RESP 18; TEMP 36.3; O2SAT 97
[2024-04-29] MEDS: LEVOTHYROXINE 100 MCG TABLET PO (06:15)
[2024-04-29] MEDS: PANTOPRAZOLE DR 40 MG TABLET PO (06:17)
[2024-04-29 08:00] VITALS: BP 138/66; PULSE 68; RESP 16; TEMP 36.6; O2SAT 98
--- NOTE | 2024-04-29 08:25 | PM.PN.1 ---
Subjective Subjective Date Patient Seen: 04/29/24 Exam Vital Signs (past 8 hours): - 04/29/24 08:00 Temperature 97.9 F Pulse Rate 68 Respiratory Rate 16 Blood Pressure 138/66 Pulse Oximetry 98 Oxygen Flow Rate 0 Oxygen Delivery Method Room Air Oxygen Flow Rate 0 Objective Labs 04/28/24 04:25 04/26/24 08:07 [facility] Social History household members: spouse Smoking Status: Never smoker Assessment & Plan Assessment & Plan narrative: 1. Upper GI bleed with melena, present on admission and stable without recurrence on PPI therapy. No source found on EGD. Declines colonoscopy and not indicated at. 2. Acute blood loss anemia secondary to GI bleed, s/p 4U PRBC total. New and stable. 3. CAD, present on admission and stable. On chronic clopidogrel, held due to bleeding, currently on aspirin 81 mg daily. 4. Mild aortic stenosis, present on admission and stable. 5. DM 2, present on admission and stable. 6. Obesity class 2 with BMI of 35.8, present on admission and active. 7. New chest pain, resolved. Patient ruled out for ID, considered high risk for recurrent NSTEMI given his CAD and blood loss anemia. 8. New Parkinson's disease recently diagnosed. Currently on trial of carbidopa levodopa. Continue PT/OT. 9. Urinary tract infection do this epidermidis, pansensitive. Continue IV ceftriaxone started on 04/25/2024, switch to oral levofloxacin 500 mg daily (avoid doxycycline given risk of pill esophagitis recent GI bleed, nitrofurantoin given low urinary penetration). 10. Intermittent mild confusion, possible infectious encephalopathy versus early cognitive impairment Plan: -Continue Protonix 40mg BID and sucralfate -Continue aspirin 81mg daily (hold clopidogrel) -Continue oral iron every other day. -Continue carbidopa/levodopa TID which has improved mobility but not mentation. Follows with [facility] neurology. Continue at discharge. -Restart lisinopril 5mg daily -if rebleeding consider repeat CTA and discussion with family on goals of care and possible IR intervention as initial CTA showed possible bleeding from the stomach not visualized on EGD. -DC to SNF 04/29/2024 if stable Time-Based Coding :: [TOTAL MINUTES] spent with patient and on the chart (including review of chart, obtaining history, exam, reviewing outside data, placing orders, documenting exam and treatment plan, and counseling patient) on [DATE]. Quality VTE Deep Vein Thrombosis/Pulmonary Embolism Present on Admission: No
--- NOTE | 2024-04-29 08:26 | PM.DS.1 ---
History of Present Illness History of Present Illness Date Patient Seen: 04/29/24 Chief complaint: Dark stool Narrative: The patient was a 74-year-old male who presented from [facility] due to melena this morning. He was found to have stable vital signs and has had a stable hemoglobin with serial lab draws today. He denies any epigastric abdominal pain, nausea, vomiting, or hematemesis. He was no history of PUD or melena. He was discharged from [facility] after an admission for an NSTEMI. The patient has a known history of CAD and was found to have an interval occlusion of his mid circumflex. He had a patent YAP to LAD stent and a patent SVG to diagonal stent as well as multiple chronic severe stenoses in the RCA. His EF at improved to 75%. He had a CABG in 2004. He also has mild aortic stenosis as well as a known aortic aneurysm which was repaired in 2012 and a provoked pulmonary embolism. He was chronic diabetes type 2. Echo from April 08 reveals an EF of 75% and an aortic mass from previous echo has resolved. He was mild aortic valve stenosis with a aortic valve area of 2.0 sq cm. He was discharged from [facility] on Plavix, Jardiance, Imdur, and lisinopril. Dr. Baker was his hemodialysis lab technician. Discharge Providers Provider Date of admission: 04/18/24 09:31 Discharge Date: 04/29/24 Primary care physician: Anshu Lugo MD Consults: 04/18/24 09:18 Consult to General Surgery Stat Comment: Consulting Provider: Hugo Spear Reason for consultation: GI bleed Has provider been notified: Yes 04/18/24 10:23 Consult to Dietitian, Adult Routine Comment: Reason For Exam: Weight loss 04/18/24 10:45 Consult to General Surgery Routine Comment: Consulting Provider: Roby Stoddard Reason for consultation: Melena (EGD) Has provider been notified: Yes 04/23/24 08:33 Consult to Occupational Therapy Evaluate & Treat Comment: Physician Instructions: Evaluate and treat Consult to Physical Therapy Evaluate & Treat Comment: Physician Instructions: Evaluate and Treat Discharge provider: Frederick Patel MD Summary Hospital Course Hospital Course: 1. Upper GI bleed with melena, Hgb stable at 9.9 on day of discharge without recurrence on PPI therapy. No source found on EGD. Declined colonoscopy. 2. Acute blood loss anemia secondary to GI bleed, s/p 4U PRBC total. Hemoglobin 9.9 on day of discharge. Treated with sucralfate and PPI. 3. CAD. On chronic clopidogrel, held due to bleeding, currently on aspirin 81 mg daily. Resumed Clopidogrel at discharge. 4. Mild aortic stenosis 5. DM 2 6. Obesity class 2 with BMI of 35.8 7. New chest pain, resolved. Patient ruled out for DE, considered high risk for recurrent NSTEMI given his CAD and blood loss anemia. 8. New Parkinson's disease recently diagnosed. Currently on trial of carbidopa levodopa. Continue PT/OT. 9. Urinary tract infection due to strep epidermidis, pansensitive. IV ceftriaxone started on 04/25/2024, switched to oral levofloxacin until 04/29/24. (avoided doxycycline given risk of pill esophagitis recent GI bleed, nitrofurantoin given low urinary penetration). 10. Intermittent mild confusion, possible infectious encephalopathy versus early cognitive impairment Plan: -Continue home Omeprazole and sucralfate -Continue aspirin 81mg daily and resume Plavix on day of discharge. -continue isosorbide, metoprolol, lisinopril, Ranexa, Lipitor and Jardiance. -Continue oral iron every other day. -Continue carbidopa/levodopa TID which has improved mobility but not mentation. Follows with [facility] neurology. Continue at discharge. -lisinopril 5mg daily -follow CBC at SNF. -Discharged to SNF. Status at Discharge Cognitive/behavioral status at discharge: at baseline, oriented Exam Vital Signs (past 8 hours): - 04/29/24 08:00 Temperature 97.9 F Pulse Rate 68 Respiratory Rate 16 Blood Pressure 138/66 Pulse Oximetry 98 Oxygen Flow Rate 0 Oxygen Delivery Method Room Air Oxygen Flow Rate 0 Narrative Exam Narrative: Alert and oriented x3. No apparent distress Heart is regular rate and rhythm without murmur Lungs are clear to auscultation bilaterally Extremities have no ankle edema Abdomen is soft and nontender. Objective Labs 04/28/24 04:25 04/26/24 08:07 [facility] Social History household members: spouse Smoking Status: Never smoker Discharge Plan Discharge Plan Patient Disposition: SNF Transfer to: [facility] Under care of provider: Facility Child Therapist Discharge orders & Medications Prescriptions: New hydrocodone-acetaminophen 5-325 mg Tablet 1 tab PO TID PRN (Reason: Pain, Moderate (4-6)) Qty: 30 0RF sucralfate 100 mg/mL Suspension 1 gm PO ACHS Qty: 120 0RF ferrous sulfate 325 mg (65 mg iron) Tablet 325 mg PO Q48H Qty: 30 0RF carbidopa-levodopa 25-100 mg Tablet 1 tab PO TID Qty: 90 0RF Continued atorvastatin 80 mg tablet 80 mg PO DAILY isosorbide mononitrate 30 mg tablet extended release 24 hr 30 mg PO DAILY metoprolol succinate 100 mg tablet extended release 24 hr 100 mg PO DAILY clopidogrel 75 mg tablet 75 mg PO DAILY acetaminophen 500 mg Tablet 500 mg PO Q6H PRN (Reason: Pain (Scale Score 1-3)) levothyroxine 100 mcg tablet 100 mcg PO DAILY tamsulosin 0.4 mg capsule 0.4 mg PO DAILY nitroglycerin 0.4 mg Tablet, Sublingual 0.4 mg SUBLINGUAL Q5-15M PRN (Reason: Chest Pain) Rx Instructions: do not exceed 3 doses per episode aspirin 81 mg Tablet,Chewable 81 mg PO DAILY lisinopril 5 mg tablet 5 mg PO DAILY ezetimibe 10 mg tablet 10 mg PO DAILY bupropion HCl 150 mg tablet extended release 24 hr 150 mg PO DAILY duloxetine 30 mg capsule,delayed release(DR/EC) 30 mg PO DAILY ranolazine 500 mg tablet extended release 12 hr 500 mg PO BID cholecalciferol (vitamin D3) 25 mcg (1,000 unit) Tablet 25 mcg PO DAILY omeprazole magnesium [Acid Desktop Architect (omeprazole)] 20 mg Capsule,Delayed Release(Dr/Ec) 20 mg PO DAILY mirabegron 50 mg tablet extended release 24 hr 50 mg PO DAILY Jardiance 10 mg tablet 10 mg PO DAILY Discontinued hydrocodone-acetaminophen 5-325 mg tablet 1 tab PO 3XD PRN (Reason: Pain (Scale Score 4-6)) Follow up/Referrals: Anshu Lugo MD [Primary Care Provider] - Diet/Activity/Treatments Diet: Diet as Tolerated and Carb-consistent/Diabetic Liquid consistency: Normal/Thin Food texture: Regular Diet comment: no milk Special Rehabilitation Services Reason for rehabilitation: Recovery r/t decondition Rehab type: Physical therapy and Occupational therapy Visit Report/Discharge Packet Stand Alone Forms: Patient Portal/API Discharge Data Primary Care Provider: Anshu Lugo VTE Deep Vein Thrombosis/Pulmonary Embolism Present on Admission: No
[2024-04-29] MEDS: ACETAMINOPHEN 325 MG TABLET 650 MG PO (08:28)
[2024-04-29 08:29] VITALS: BP 138/66; PULSE 66
[2024-04-29] MEDS: METOPROLOL ER 50 MG TABLET 100 MG PO (08:29)
[2024-04-29] MEDS: TAMSULOSIN 0.4 MG CAPSULE PO (08:29)
[2024-04-29] MEDS: RANOLAZINE 500 MG TAB.ER.12H PO (08:29)
[2024-04-29] MEDS: CARBIDOPA-LEVODOPA 25/100 TABLET 1 EACH PO (08:29)
[2024-04-29] MEDS: ATORVASTATIN 20 MG TABLET 80 MG PO (08:29)
[2024-04-29] MEDS: buPROPion XL 150 MG TAB PO (08:29)
[2024-04-29] MEDS: DULOXETINE 30 MG CAPSULE PO (08:29)
[2024-04-29] MEDS: EZETIMIBE 10 MG TABLET PO (08:29)
[2024-04-29] MEDS: ASPIRIN EC 81 MG TABLET PO (08:29)
[2024-04-29] MEDS: SUCRALFATE 1 GM/10 ML ORAL SUSP PO (08:29)
[2024-04-29] MEDS: FERROUS SULFATE 325 MG TABLET PO (08:31)
[2024-04-29 08:59] VITALS: PULSE 64
--- NOTE | 2024-04-29 10:59 | CM.DPC ---
DCP Discharge SNF Per MD, pt is medically stable to d/c to SNF today and no identified barriers to discharge. SW confirmed with [facility] that they can accept today and provide transport around 1130. ANEL Mcmahan kindly faxed FLORENTINO, med álvaro, MD husam orders to [facility] to review. SW met bedside with pt, spouse, and adult Dtr Luci and updated on above and they remain agreeable to discharge plan for today and then updated rice drier, GILBERTO, RN and provided number to call report. Plan: Patient to d/c to [facility] today via facility van at 1130 before safe return either home with spouse vs LTC maybe at [facility]. MARYCRUZ [place]
--- NOTE | 2024-04-29 11:54 | PC.NURSE ---
Pt and family agreeable to discharge to [facility] rehab. Paperwork obtained from discharge planners. Pt hoyered to facility wheelchair. Pt wheeled via facility wheelchair to facility vehicle. IV in place during transfer at approximately 11:45. Receiving admission RN at [facility] rehab given report, relayed that IV in FA needed to be removed upon arrival to [facility]. RN verbalized he will remove IV at admit.
== END 2024-04-29 11:45 | DRG 378 ==
LOC: ED 08:38 → AC 09:32 → ICU 04-21 13:03
PROVIDERS: Emergency Medicine; Internal Medicine; Surgery; Admitting Provider Hospitalist; Emergency Provider Emergency Medicine; PCP Internal Medicine; Referring Provider Emergency Medicine; Visit Provider Hospitalist
PROC: 0DJ08ZZ Inspection of Upper Intestinal Tract, Via Natural or Artificial Opening Endoscopic (ICD-10-PCS; principal; 2024-04-19 16:00)
DX: K92.1 Melena (principal); D62 Acute posthemorrhagic anemia; N39.0 Urinary tract infection, site not specified; G93.49 Other encephalopathy; I25.10 Atherosclerotic heart disease of native coronary artery without angina pectoris; I35.0 Nonrheumatic aortic (valve) stenosis; E11.9 Type 2 diabetes mellitus without complications; E66.812 Obesity, class 2; R07.9 Chest pain, unspecified; G20.A1 Parkinson's disease without dyskinesia, without mention of fluctuations; G31.84 Mild cognitive impairment of uncertain or unknown etiology; I25.2 Old myocardial infarction; Z95.1 Presence of aortocoronary bypass graft; Z95.5 Presence of coronary angioplasty implant and graft; Z68.35 Body mass index [BMI] 35.0-35.9, adult; Z79.82 Long term (current) use of aspirin; Z79.02 Long term (current) use of antithrombotics/antiplatelets; Z86.711 Personal history of pulmonary embolism; Z79.84 Long term (current) use of oral hypoglycemic drugs; Z86.79 Personal history of other diseases of the circulatory system; Z98.890 Other specified postprocedural states
CPT/HCPCS: 36415; 36430; 43235; 71045; 74174; 80048; 80053; 81001; 82550; 82962; 83605; 83735; 84484; 85007; 85014; 85018; 85025; 85027; 85610; 85730; 86850; 86870; 86900; 86901; 86902; 87077; 87086; 87186; 87633; 93005; 96361; 96374; 97110; 97162; 97166; 97530; 99231; 99232; 99284; P9016; J0696; J1815; J2270; J2405; J2470; J2704; P9041; Q9967

== ENCOUNTER 2024-05-20 19:50 | Inpatient (IN) | payer OTHER, SELFPAY ==
[2024-04-18 10:15] VITALS: BMI 35.8
[2024-05-20] VITALS (9 sets, daily range): BP systolic 95–125; BP diastolic 52–65; PULSE 64–67; RESP 13–18; TEMP 36.4; O2SAT 93–94; BMI 36.7
--- NOTE | 2024-05-20 20:04 | EKG_ITS ---
[place] [id number] [place] [id number] Test Date: 2024-05-20 Pat Name: [facility] Department: [facility] Room: Gender: Male Assistant Finance Director: MARJORIE CEBALLOS : 1950 Requested By: Order Number: [id number] Reading MD: Adrian Wahl Measurements Intervals [place] Rate: 66 P: -11 MS: 214 QRS: -52 QRSD: 132 T: 65 QT: 464 QTc: 486 Interpretive Statements Sinus rhythm with 1st degree AV block Left axis deviation Nonspecific intraventricular block Electronically Signed On 05-22-2024 23:44:44 PST by Adrian Wahl
--- NOTE | 2024-05-20 20:04 | DI.RAD.S_ITS ---
PROCEDURE: XR CHEST 1V INDICATIONS: chest pain TECHNIQUE: One view of the chest was acquired. COMPARISON: [facility], CR, XR CHEST 1V, 04/19/2024, 10:11. FINDINGS: Surgical changes and devices: Mediastinal clips are present. Lungs and pleura: Lungs are clear. No pleural effusions or pneumothorax. Mediastinum: Cardiac silhouette is enlarged. Stable mediastinal contours. Bones and chest wall: No suspicious bony lesions. Overlying soft tissues appear unremarkable. IMPRESSION: No acute cardiopulmonary abnormality is seen. Approved by: Enrico Marte M.D. on 05/20/2024 at 20:39
--- NOTE | 2024-05-20 20:07 | DI.CT.S_ITS ---
PROCEDURE: CT HEAD/BRAIN WO CON INDICATIONS: found down TECHNIQUE: Noncontrast 4.5 mm thick angled axial sections acquired from the foramen magnum to the vertex, with coronal and sagittal reformats. For radiation dose reduction, the following was used: automated exposure control, adjustment of mA and/or kV according to patient size. COMPARISON: None. FINDINGS: Image quality: Diagnostic. CSF spaces: Basal cisterns are patent. No extra-axial fluid collections. The ventricles are symmetric in size and shape. Brain: No acute intracranial hemorrhage or mass effect. There is cerebral volume loss for age, with resultant ventricular and sulcal prominence. There are periventricular and deep white matter chronic small vessel ischemic changes. There is intracranial internal carotid artery atherosclerosis. Skull and face: Calvarium and visualized facial bones appear intact, without suspicious lesions. Sinuses: Visualized sinuses and mastoids are clear. IMPRESSION: No acute intracranial pathology. Approved by: Enrico Marte M.D. on 05/20/2024 at 20:34
[2024-05-20] MEDS: SODIUM CHLORIDE 0.9% 1,000 ML 1000 ML IV (20:08)
[2024-05-20 20:11] LABS: Add Manual Diff / Slide Review NO; Basophils Absolute Auto 100 /uL (0-100); Basophils Percent Auto 0.4 % (0-2); Eosinophils Absolute Auto 400 /uL (0-450); Eosinophils Percent Auto 3.4 % (2-4); Hematocrit 37.5 % (41-53); Hemoglobin 12.4 g/dL (13.5-17.5); Lymphocytes Absolute Auto 3000 /uL (1100-4500); Lymphocytes Percent Auto 24.8 % (25-40); Mean Corpuscular HGB Conc 33.2 % (30-36); Mean Corpuscular Hemoglobin 30.8 PG (26-34); Mean Corpuscular Volume 92.8 fL (80-100); Monocytes Absolute Auto 1100 /uL (0-900); Monocytes Percent Auto 8.8 % (3-14); Neutrophils Absolute Auto 7500 /uL (1500-7000); Neutrophils Percent Auto 62.6 % (50-75); Platelet Count 241 X10^3/uL (150-400); Red Blood Cell Count 4.04 X10^6/uL (4.5-5.9); Red Cell Distribution Width 16.4 % (11.6-14.8); White Blood Cell Count 11.9 X10^3/uL (4.5-11.0)
[2024-05-20 20:22] LABS: Alanine Aminotransferase 20 IU/L (<50); Albumin 4.3 g/dL (3.5-5.0); Albumin Globulin Ratio 1.3 (1.0-2.8); Alkaline Phosphatase 89 U/L (38-126); Aspartate Aminotransferase 40 IU/L (17-59); BUN Creatinine Ratio 11.3 (6-22); Bilirubin Total 1.5 mg/dL (0.2-1.3); Blood Urea Nitrogen 13 mg/dL (9-20); Calcium 9.6 mg/dL (8.4-10.2); Carbon Dioxide 19 mmol/L (22-32); Chloride 105 mmol/L (98-107); Creatine Kinase 27 U/L (55-170); Estimated Glomerular Filt Rate > 60 mL/min (>60); Globulin 3.3 g/dL (1.7-4.1); Glucose 160 mg/dL (80-110); HEMOLYSIS < 15 (0-50); Lipase 131 U/L (23-300); Potassium 3.7 mmol/L (3.4-5.1); Sodium 137 mmol/L (137-145); Total Protein 7.6 g/dL (6.3-8.2)
[2024-05-20 20:23] LABS: Lactate (Lactic Acid) 3.7 mmol/L (0.7-2.1)
[2024-05-20 20:34] LABS: Troponin I < 0.012 ng/mL (0.01-0.034)
[2024-05-20 21:06] LABS: Influenza A - CEPHEID Flu A NEGATIVE (NEGATIVE); Influenza B - CEPHEID Flu B NEGATIVE (NEGATIVE); Respiratory Syncytial Virus Negative (Negative)
[2024-05-20 21:10] LABS: COVID-19 CEPHEID 4-PLEX PCR Negative (Negative)
[2024-05-20 21:44] LABS: Reflexed Lactate in 2 Hours Y
--- NOTE | 2024-05-20 21:54 | PC.NURSE ---
Repeat labs drawn from existin gIV line without complications
[2024-05-20 22:09] LABS: Lactate 2HR (Lactic Acid Rflx) 2.2 mmol/L (0.7-2.1)
--- NOTE | 2024-05-20 23:06 | ED.SYNCOPE ---
HPI - Syncope General Chief Complaint: Syncope Stated Complaint: syncope Time Seen by Provider: 05/20/24 23:01 Source: patient and EMS Mode of arrival: EMS Limitations: no limitations History of Present Illness HPI narrative: Patient is a 74-year-old male presenting today from custodial facility does have a history of coronary artery disease, CABG in 2004, AAA that was repaired in 2012 recent admission for GI bleed April 18 through . During that admission as though he had a slow bleed he was difficult to obtain blood for him secondary to antibodies but he did ultimately receive 4 units. He was also admitted previously to [facility] for an NSTEMI. He himself is overall a very poor historian. It sounds as though he was getting ready to go to bed when he was found down by caregivers. He initially was found to be quite hypotensive. He is since received 1 L of IV fluids blood pressure has stabilized. He denies any dark or maroon stool. He has no chest pain or palpitations. He has no abdominal pain. Related Data Home Medications Medication Instructions Recorded Confirmed acetaminophen 500 mg tablet 500 mg PO Q6H PRN Pain (Scale 04/18/24 05/21/24 Score 1-3) aspirin 81 mg chewable tablet 81 mg PO DAILY 04/18/24 05/21/24 atorvastatin 80 mg tablet 80 mg PO BEDTIME 04/18/24 05/21/24 bupropion HCl 150 mg 24 hr tablet, 150 mg PO DAILY 04/18/24 05/21/24 extended release cholecalciferol (vitamin D3) 25 25 mcg PO DAILY 04/18/24 05/21/24 mcg (1,000 unit) tablet clopidogrel 75 mg tablet 75 mg PO DAILY 04/18/24 05/21/24 duloxetine 30 mg capsule,delayed 30 mg PO DAILY 04/18/24 05/21/24 release empagliflozin 10 mg tablet 10 mg PO DAILY 04/18/24 05/21/24 (Jardiance) ezetimibe 10 mg tablet 10 mg PO DAILY 04/18/24 05/21/24 isosorbide mononitrate 30 mg 30 mg PO DAILY 04/18/24 05/21/24 tablet,extended release 24 hr levothyroxine 100 mcg tablet 100 mcg PO DAILY 04/18/24 05/21/24 lisinopril 5 mg tablet 5 mg PO DAILY 04/18/24 05/21/24 metoprolol succinate 100 mg 100 mg PO DAILY 04/18/24 05/21/24 tablet,extended release 24 hr mirabegron 50 mg tablet,extended 50 mg PO DAILY 04/18/24 05/21/24 release 24 hr nitroglycerin 0.4 mg sublingual 0.4 mg sublingual Q5-15M PRN Chest 04/18/24 05/21/24 tablet Pain omeprazole magnesium 20 mg 20 mg PO DAILY 04/18/24 05/21/24 capsule,delayed release (Acid [employer] (omeprazole)) ranolazine 500 mg tablet,extended 500 mg PO BID 04/18/24 05/21/24 release,12 hr tamsulosin 0.4 mg capsule 0.4 mg PO DAILY 04/18/24 05/21/24 Previous Rx's Medication Instructions Recorded carbidopa 25 mg-levodopa 100 mg 1 tab PO TID #90 tabs 04/29/24 tablet ferrous sulfate 325 mg (65 mg 325 mg PO Q48H #30 tabs 04/29/24 iron) tablet hydrocodone 5 mg-acetaminophen 325 1 tab PO TID PRN Pain, Moderate 04/29/24 mg tablet (4-6) #30 tabs sucralfate 100 mg/mL oral 1 gm PO ACHS #120 mL 04/29/24 suspension Allergies Allergy/AdvReac Type Severity Reaction Status Date / Time Sulfa (Sulfonamide Allergy Intermediate Hives Verified 04/19/24 14:57 Antibiotics) oxycodone Allergy Verified 04/18/24 07:04 amoxicillin AdvReac Intermediate Vomiting Verified 04/19/24 14:57 Patient History Social History household members: spouse Smoking Status: Never smoker Smoking Status: Never smoker Exam Initial Vital Signs Initial Vital Signs: Vital Signs Temperature 97.5 F L 05/20/24 19:54 Pulse Rate 66 05/20/24 19:54 Respiratory Rate 18 05/20/24 19:54 Blood Pressure 95/52 L 05/20/24 19:54 Pulse Oximetry 93 05/20/24 19:54 Oxygen Delivery Method Room Air 05/20/24 19:54 GENERAL: Alert pleasant mildly confused 74-year-old male and in no acute distress. HEENT: Head atraumatic,EOMI, pupils reactive, face symmetric, moist mucous membranes CARDIOVASCULAR: Regular rate and rhythm without murmurs, rubs or gallops. RESPIRATORY: Breath sounds equal bilaterally, no wheezes rales or rhonchi. ABDOMEN: Soft, large scar noted no pulsatile mass nontender EXTREMITIES: Normal range of motion, no clubbing or edema. Neurovascularly intact NEUROLOGICAL: Alert and oriented x4.Normal gait and speech. Moving all extremities able to lift both legs about 1 SKIN: Warm, dry, no laceration, no petechiae, no rashes or lesions. Course Orders Ordered: ED Orders 05/20/24 23:20 UA Complete [Urinalysis and Microscopic] Stat Urine Culture Stat 05/20/24 23:37 Hemoglobin and Hematocrit Stat 05/21/24 Lipid Panel Routine 05/21/24 01:05 Consult to Physical Therapy Evaluate & Treat 05/21/24 07:00 Basic Metabolic Panel DAILY Lactate (Lactic Acid) Urgent Magnesium DAILY 05/22/24 07:00 Basic Metabolic Panel DAILY Magnesium DAILY 05/23/24 07:00 Magnesium DAILY Acetaminophen (Acetaminophen 325 Mg Tablet) 650 mg PO Q6H PRN PRN Reason: Fever/Mild Pain (1-3) Last Admin: 05/21/24 03:17 Dose: 650 mg Documented By: ELENA Hydrocodone Bitart/Acetaminophen (Hydrocodone/Acet 5/325 Tablet) 1 tab PO TID PRN PRN Reason: Pain, Moderate (4-6) Albuterol (Albuterol 2.5 Mg/3 Ml Neb (Adult)) 2.5 mg INH [id number] PRN PRN Reason: Dyspnea Aspirin (Aspirin 81 Mg Chew Tab) 81 mg PO DAILY ON LICENSE OF [facility] Atorvastatin Calcium (Atorvastatin 20 Mg Tablet) 80 mg PO DAILY ON LICENSE OF [facility] Benzonatate (Benzonatate 100 Mg Capsule) 100 mg PO TID PRN PRN Reason: Cough Bisacodyl (Bisacodyl 5 Mg Tablet) 10 mg PO DAILY PRN PRN Reason: Constipation Bupropion HCl (Bupropion Xl 150 Mg Tab) 150 mg PO DAILY ON LICENSE OF [facility] Calcium Carbonate (Calcium Carbonate 500 Mg Tab) 1,000 mg PO Q4HR PRN PRN Reason: Dyspepsia Carbidopa/Levodopa (Carbidopa-Levodopa 25/100 Tablet) 1 each PO TID ON LICENSE OF [facility] Clopidogrel Bisulfate (Clopidogrel 75 Mg Tablet) 75 mg PO DAILY ON LICENSE OF [facility] Duloxetine HCl (Duloxetine 30 Mg Capsule) 30 mg PO DAILY ON LICENSE OF [facility] Ezetimibe (Ezetimibe 10 Mg Tablet) 10 mg PO DAILY ON LICENSE OF [facility] Ferrous Sulfate (Ferrous Sulfate 325 Mg Tablet) 325 mg PO Q48H ON LICENSE OF [facility] Ceftriaxone Sodium 2,000 mg/ (Sodium Chloride) 100 mls @ 200 mls/hr IV Q24H MOLINA Sodium Chloride (Normal Saline 0.9%) 1,000 mls @ 100 mls/hr IV CONT MOLINA Last Admin: 05/21/24 02:16 Dose: 100 mls/hr Documented By: ELENA Isosorbide Mononitrate (Isosorbide Mononitrate Er 30 Mg Tablet) 30 mg PO DAILY ON LICENSE OF [facility] Levothyroxine Sodium (Levothyroxine 100 Mcg Tablet) 100 mcg PO 0600 MOLINA Last Admin: 05/21/24 06:46 Dose: 100 mcg Documented By: ELENA Melatonin (Melatonin 3 Mg Tablet) 9 mg PO BEDTIME PRN PRN Reason: insomnia Last Admin: 05/21/24 03:17 Dose: 9 mg Documented By: ELENA Naloxone HCl (Naloxone 0.4 Mg/Ml Vial) 0.2 mg IV Q2MIN PRN PRN Reason: Opiate Reversal Nitroglycerin (Nitroglycerin 0.4 Mg Sl Tab) 0.4 mg SL [id number] PRN PRN Reason: Chest Pain (Empagliflozin [ Jardiance] 10 Mg Tablet) 10 mg PO DAILY ON LICENSE OF [facility] Ondansetron HCl (Ondansetron 4 Mg/2 Ml Inj) 4 mg IV Q8HR PRN PRN Reason: Nausea And Vomiting Last Admin: 05/21/24 04:34 Dose: 4 mg Documented By: ELENA Oxybutynin Chloride (Oxybutynin 5 Mg Er Tab) 10 mg PO DAILY ON LICENSE OF [facility] Pantoprazole Sodium (Pantoprazole Dr 20 Mg Tablet) 20 mg PO DAILY ON LICENSE OF [facility] Ranolazine (Ranolazine 500 Mg Tab.Er.12h) 500 mg PO BID ON LICENSE OF [facility] Sucralfate (Sucralfate 1 Gm/10 Ml Oral Susp) 1 gm PO ACHS ON LICENSE OF [facility] Tamsulosin HCl (Tamsulosin 0.4 Mg Capsule) 0.4 mg PO DAILY ON LICENSE OF [facility] Vitamin D (Cholecalciferol (Vitamin D3) 1,000 Unit Tablet) 1,000 unit PO DAILY MOLINA Discontinued Medications Sodium Chloride (Normal Saline 0.9%) 1,000 mls @ 1,000 mls/hr IV BOLUS ONE Stop: 05/20/24 21:03 Last Infusion: 05/20/24 21:10 Dose: Infused Documented By: Admin: 05/20/24 20:08 Dose: 1,000 mls/hr Documented By: DANNIE Ceftriaxone Sodium 1,000 mg/ (Sodium Chloride) 100 mls @ 200 mls/hr IV NOW ONE Stop: 05/20/24 23:30 Last Infusion: 05/21/24 00:55 Dose: Infused Documented By: Admin: 05/20/24 23:46 Dose: 200 mls/hr Documented By: JOS Levofloxacin (Levofloxacin 250 Mg Tablet) 500 mg PO NOW ONE Stop: 05/21/24 00:53 Last Admin: 05/21/24 02:21 Dose: 500 mg Documented By: ELENA Non-Formulary Medication (Acetaminophen) 500 mg PO Q6H PRN PRN Reason: Pain (Scale Score 1-3) Vital Signs Vital signs: Vital Signs - 8 hr 05/20/24 19:54 05/20/24 19:58 05/20/24 20:00 Temperature 97.5 F L Pulse Rate 66 66 66 Respiratory Rate 18 18 18 Blood Pressure 95/52 L Pulse Oximetry 93 93 93 Oxygen Delivery Method Room Air Room Air 05/20/24 20:00 05/20/24 20:30 05/20/24 20:30 Temperature Pulse Rate 65 Respiratory Rate 15 Blood Pressure 100/59 L 119/65 Pulse Oximetry 93 Oxygen Delivery Method 05/20/24 21:00 05/20/24 21:05 05/20/24 21:05 Temperature Pulse Rate 64 64 Respiratory Rate 16 17 Blood Pressure 125/60 Pulse Oximetry 94 94 Oxygen Delivery Method 05/20/24 21:30 05/20/24 21:30 05/20/24 22:00 Temperature Pulse Rate 66 67 Respiratory Rate 15 13 Blood Pressure 119/57 L Pulse Oximetry 93 94 Oxygen Delivery Method 05/20/24 22:00 05/20/24 22:30 05/20/24 22:30 Temperature Pulse Rate 66 Respiratory Rate 15 Blood Pressure 125/58 L 121/62 Pulse Oximetry 93 Oxygen Delivery Method MDM - Syncope Lab Data 05/20/24 23:37 05/20/24 19:54 Labs: Lab Results 05/20/24 05/20/24 05/20/24 Range/Units 19:54 20:09 20:31 WBC 11.9 H (4.5-11.0) X10^3/uL RBC 4.04 L (4.5-5.9) X10^6/uL Hgb 12.4 L (13.5-17.5) g/dL Hct 37.5 L (41-53) % MCV 92.8 (80-100) fL MCH 30.8 (26-34) PG MCHC 33.2 (30-36) % RDW 16.4 H (11.6-14.8) % Plt Count 241 (150-400) X10^3/uL Neut % (Auto) 62.6 (50-75) % Lymph % (Auto) 24.8 L (25-40) % [place] % (Auto) 8.8 (3-14) % Eos % (Auto) 3.4 (2-4) % Baso % (Auto) 0.4 (0-2) % Neut # (Auto) 7500 H (2480-9695) /uL Lymph # (Auto) 3000 (8178-3392) /uL [place] # (Auto) 1100 H (0-900) /uL Eos # (Auto) 400 (0-450) /uL Baso # (Auto) 100 (0-100) /uL Sodium 137 (137-145) mmol/L Potassium 3.7 (3.4-5.1) mmol/L Chloride 105 (98-107) mmol/L Carbon Dioxide 19 L (22-32) mmol/L BUN 13 (9-20) mg/dL Creatinine 1.15 (0.66-1.25) mg/dL Estimated GFR > 60 (>60) mL/min BUN/Creatinine Ratio 11.3 (6-22) Glucose 160 H (80-110) mg/dL Lactate 3.7 H (0.7-2.1) mmol/L Calcium 9.6 (8.4-10.2) mg/dL Total Bilirubin 1.5 H (0.2-1.3) mg/dL AST 40 (17-59) IU/L ALT 20 (<50) IU/L Alkaline Phosphatase 89 (38-126) U/L Total Creatine Kinase 27 L (55-170) U/L Troponin I < 0.012 (0.01-0.034) ng/mL Total Protein 7.6 (6.3-8.2) g/dL Albumin 4.3 (3.5-5.0) g/dL Globulin 3.3 (1.7-4.1) g/dL Albumin/Globulin Ratio 1.3 (1.0-2.8) Lipase 131 (23-300) U/L Urine Color Urine Appearance Urine pH (4.5-8.0) Ur Specific [place] (1.000-1.035) Urine Protein (Negative) Urine Glucose (UA) (Negative) g/dL Urine Ketones (NEGATIVE) Urine Occult Blood (Negative) Urine Nitrate (Negative) Urine Bilirubin (NEGATIVE) Urine Urobilinogen (0.2) E.U./dL Ur Leukocyte Esterase (NEGATIVE) Urine RBC (0-5/HPF) Urine WBC (0-5/HPF) Ur Squamous Epith Cells (0-5/HPF) Ur Transition Epith Cell (0-5/HPF) Urine Bacteria (None) Ur Culture Indicated? Vol Urine Centrifuged SARS-CoV-2 (PCR) Negative (Negative) Influenza A (RT-PCR) Flu a negative (NEGATIVE) Influenza B (RT-PCR) Flu b negative (NEGATIVE) RSV (PCR) Negative (Negative) Blood Type A Positive Antibody Screen Positive Antibody Identification Anti-Fya 05/20/24 05/20/24 05/20/24 Range/Units 21:53 23:20 23:37 WBC (4.5-11.0) X10^3/uL RBC (4.5-5.9) X10^6/uL Hgb 11.2 L (13.5-17.5) g/dL Hct 33.4 L (41-53) % MCV (80-100) fL MCH (26-34) PG MCHC (30-36) % RDW (11.6-14.8) % Plt Count (150-400) X10^3/uL Neut % (Auto) (50-75) % Lymph % (Auto) (25-40) % [place] % (Auto) (3-14) % Eos % (Auto) (2-4) % Baso % (Auto) (0-2) % Neut # (Auto) (2028-4404) /uL Lymph # (Auto) (7368-0654) /uL [place] # (Auto) (0-900) /uL Eos # (Auto) (0-450) /uL Baso # (Auto) (0-100) /uL Sodium (137-145) mmol/L Potassium (3.4-5.1) mmol/L Chloride (98-107) mmol/L Carbon Dioxide (22-32) mmol/L BUN (9-20) mg/dL Creatinine (0.66-1.25) mg/dL Estimated GFR (>60) mL/min BUN/Creatinine Ratio (6-22) Glucose (80-110) mg/dL Lactate 2.2 H (0.7-2.1) mmol/L Calcium (8.4-10.2) mg/dL Total Bilirubin (0.2-1.3) mg/dL AST (17-59) IU/L ALT (<50) IU/L Alkaline Phosphatase (38-126) U/L Total Creatine Kinase (55-170) U/L Troponin I (0.01-0.034) ng/mL Total Protein (6.3-8.2) g/dL Albumin (3.5-5.0) g/dL Globulin (1.7-4.1) g/dL Albumin/Globulin Ratio (1.0-2.8) Lipase (23-300) U/L Urine Color Yellow Urine Appearance Cloudy Urine pH 5.5 (4.5-8.0) Ur Specific [place] 1.025 (1.000-1.035) Urine Protein Trace H (Negative) Urine Glucose (UA) 3+ H (Negative) g/dL Urine Ketones Negative (NEGATIVE) Urine Occult Blood Negative (Negative) Urine Nitrate Positive H (Negative) Urine Bilirubin Negative (NEGATIVE) Urine Urobilinogen 1.0 (0.2) E.U./dL Ur Leukocyte Esterase Trace H (NEGATIVE) Urine RBC None seen (0-5/HPF) Urine WBC 30-100/hpf H (0-5/HPF) Ur Squamous Epith Cells 0-1 /hpf (0-5/HPF) Ur Transition Epith Cell 0-1/hpf (0-5/HPF) Urine Bacteria Many (>30) H (None) Ur Culture Indicated? Specimen cultured Vol Urine Centrifuged 10ml (spun) SARS-CoV-2 (PCR) (Negative) Influenza A (RT-PCR) (NEGATIVE) Influenza B (RT-PCR) (NEGATIVE) RSV (PCR) (Negative) Blood Type Antibody Screen Antibody Identification Urine Dip Bedside Urine Glucose 1000 mg/dl Bedside Urine Bilirubin - Negative Bedside Urine Ketone - Negative Urine Specific [place] 1.025 Bedside Urine Occult Blood - Negative Bedside Urine pH 6.0 Bedside Urine Protein +/- 15 Bedside Urine Urobilinogen - Negative Bedside Urine Nitrite + Positive Bedside Urine Leukocytes + 70 Esterase Imaging Data Chest x-ray: Radiologist's Impression: PROCEDURE: XR CHEST 1V INDICATIONS: chest pain TECHNIQUE: One view of the chest was acquired. COMPARISON: [facility], , XR CHEST 1V, 04/19/2024, 10:11. FINDINGS: Surgical changes and devices: Mediastinal clips are present. Lungs and pleura: Lungs are clear. No pleural effusions or pneumothorax. Mediastinum: Cardiac silhouette is enlarged. Stable mediastinal contours. Bones and chest wall: No suspicious bony lesions. Overlying soft tissues appear unremarkable. IMPRESSION: No acute cardiopulmonary abnormality is seen. Approved by: Enrico Marte M.D. on 05/20/2024 at 20:39 CT scan - head: Radiologist's Impression: PROCEDURE: CT HEAD/BRAIN WO CON INDICATIONS: found down TECHNIQUE: Noncontrast 4.5 mm thick angled axial sections acquired from the foramen magnum to the vertex, with coronal and sagittal reformats. For radiation dose reduction, the following was used: automated exposure control, adjustment of mA and/or kV according to patient size. COMPARISON: None. FINDINGS: Image quality: Diagnostic. CSF spaces: Basal cisterns are patent. No extra-axial fluid collections. The ventricles are symmetric in size and shape. Brain: No acute intracranial hemorrhage or mass effect. There is cerebral volume loss for age, with resultant ventricular and sulcal prominence. There are periventricular and deep white matter chronic small vessel ischemic changes. There is intracranial internal carotid artery atherosclerosis. Skull and face: Calvarium and visualized facial bones appear intact, without suspicious lesions. Sinuses: Visualized sinuses and mastoids are clear. IMPRESSION: No acute intracranial pathology. Approved by: Enrico Marte M.D. on 05/20/2024 at 20:34 ECG Data Attestation: I personally reviewed and interpreted this ECG as follows: Interpretation: Normal sinus rhythm rate 66 PA interval 214 QRS [address] changes MDM Narrative Medical decision making narrative: [facility] CC: Syncopal episode Complicating co-morbidities: NSTEMI recent GI bleed,AAA with repair Data collected from: Patient and record Medical records reviewed: Recent admission 04/25/24 --------- --- * Vancomycin 1 S * Ciprofloxacin <=0.5 S * Gentamicin <=0.5 S * Levofloxacin <=0.12 S * Linezolid 2 S * Moxifloxacin <=0.25 S * Nitrofurantoin <=16 S * Oxacillin Eric <=0.25 S * Rifampin <=0.5 S * Tetracycline <=1 S Differential considered: Anemia, AAA rupture, sepsis Exam documented above, pertinent findings include: 74-year-old male mildly confused abdomen soft non tender no pulsatile mass, Lab Test results independently reviewed as above. Pertinent findings: WBC 11.9 hemoglobin 12 4 hematocrit 37.5 with repeat 11.2/33.4 CMP bicarb 19 creatinine 1.15 previously 0.7 otherwise electrolytes stable Lactate 3.7 with repeat 2.2 Bilirubin 1.5, AST 40 ALT 20 alk-phos 89 Troponin negative Independently reviewed EKG as above no ischemia Imaging studies independently reviewed: Chest x-ray no acute cardiopulmonary process Head CT no intracranial hemorrhage Consultations: Dr. Lutz accepts patient. Treatments: Sepsis fluids, IV Rocephin and then after reviewing culture Levaquin was added Re-evaluations: Patient blood pressure improved with IV fluids not tachycardic or hypoxic Discussion: Patient is 74-year-old male with syncopal episode today he was initially hypotensive for us. Found to have an elevated lactate mild elevation of leukocytosis of 11. He does have a UTI concern for sepsis septic shock. Patient's blood pressure improved with IV fluids. He does have a positive urine culture for Staphylococcus epidermidis from the . Unclear if this was treated. Hemoglobin hematocrit remained stable no evidence of GI bleeding. His abdomen is soft low suspicion for AAA rupture was repaired and he has not having any abdominal pain. Discharge Plan Departure Patient Disposition: Admitted as Observation Clinical Impression: Sepsis, Acute UTI Admit Date/Time: 05/21/24 01:06 Admit Provider: Compa Lutz
[2024-05-20 23:25] LABS: Appearance Urine UA CLOUDY; Bilirubin Urine UA NEGATIVE (NEGATIVE); Color Urine UA YELLOW; Glucose Urine UA 3+ g/dL (Negative); Ketones Urine UA NEGATIVE (NEGATIVE); Leukocyte Esterase Urine UA TRACE (NEGATIVE); Nitrite Urine UA POSITIVE (Negative); Occult Blood Urine UA NEGATIVE (Negative); Protein Urine UA TRACE (Negative); Specific Gravity Urine UA 1.025 (1.000-1.035); pH Urine UA 5.5 (4.5-8.0)
[2024-05-20 23:27] LABS: Urine Volume 10mL (spun)
[2024-05-20 23:32] LABS: Bacteria Urine Many (>30); Squamous Epithelial Cell Urine 0-1 /HPF (0-5/HPF); WBC Urine 30-100/HPF (0-5/HPF)
[2024-05-20 23:33] LABS: Culture Indicated Urine Specimen Cultured; RBC Urine None Seen (0-5/HPF); Transitional Epi Cells Urine 0-1/HPF (0-5/HPF)
[2024-05-20 23:43] LABS: Hematocrit 33.4 % (41-53); Hemoglobin 11.2 g/dL (13.5-17.5)
[2024-05-20] MEDS: cefTRIAXone 1,000 MG in SODIUM CHLORIDE 0.9% 100 ML 200 MG IV (23:46)
--- NOTE | 2024-05-20 23:46 | PC.NURSE ---
Repeat labs drawn from existing IV line without complications.
[2024-05-21 01:09] VITALS: BMI 34.9
[2024-05-21 01:55] VITALS: BP 105/55; PULSE 72; RESP 18; TEMP 36.1; O2SAT 95
[2024-05-21] MEDS: SODIUM CHLORIDE 0.9% 1,000 ML 100 ML IV (02:16)
[2024-05-21] MEDS: levoFLOXacin 250 MG TABLET 500 MG PO (02:21)
[2024-05-21] MEDS: ACETAMINOPHEN 325 MG TABLET 650 MG PO (03:17)
[2024-05-21] MEDS: MELATONIN 3 MG TABLET 9 MG PO (03:17)
--- NOTE | 2024-05-21 03:43 | PC.NURSE ---
Admit/NOC Shift Note- Patient arrived to the room via stretcher at 0130. slider board used to transfer beds. Patient alert and oriented x3. Patient able to make needs known to staff. Admit questions done, medications reviewed, physical assessment done, and skin check competed. Oriented patient to bed and bed controls, room, bathroom, lights, phone, and call larsen/tv remote. safety measures in place. Patient agrees to call for assistance. Call larsen and phone within reach. Will continue to monitor.
[2024-05-21] MEDS: ONDANSETRON 4 MG/2 ML INJ IV (04:34)
[2024-05-21 04:38] VITALS: BP 103/58; PULSE 88; RESP 19; TEMP 36.2; O2SAT 96
--- NOTE | 2024-05-21 04:54 | PM.HP.1 ---
History of Present Illness History of Present Illness Chief complaint: syncope Narrative: 74 years old male with history of hypertension, hyperlipidemia, CAD, CABG in 2004, AAA repair in 2012, depression, hypothyroidism, BPH, GERD presented to the ER with a fall. The patient is poor historian. It sounds he was getting to go to bed when he was found down by caregivers. The patient was hospitalized from 04/18/2024 to 04/29/2024 for GI bleed. After discharge he was sent to rehab where he reside currently. On presentation he was found to be quite hypotensive but responded well to 1 L of bolus. Denies any shortness of breath, cough, fever, chest pain, palpitations, nausea, vomiting, diarrhea., Diarrhea or dysuria. Denies any melena or hematemesis. Laboratory shows WBC 11.9, lactic acid 2.2, UA shows UTI, total bilirubin 1.5, blood sugar 160, H&H 11.2/33.4. Positive urine culture for Staphylococcus epididymis pansensitive from 04/25/2024 but unclear if it was treated. Chest x-ray unremarkable, CT of the head unremarkable. In the ER he was given ceftriaxone 1 g IV, levofloxacin 500 mg p.o. and fluid bolus. [facility] Social History household members: spouse Smoking Status: Never smoker Meds Home Medications and Allergies Home Medications Medication Instructions Recorded Confirmed Type acetaminophen 500 mg tablet 500 mg PO Q6H PRN Pain (Scale 04/18/24 05/21/24 History Score 1-3) aspirin 81 mg chewable tablet 81 mg PO DAILY 04/18/24 05/21/24 History atorvastatin 80 mg tablet 80 mg PO BEDTIME 04/18/24 05/21/24 History bupropion HCl 150 mg 24 hr tablet, 150 mg PO DAILY 04/18/24 05/21/24 History extended release cholecalciferol (vitamin D3) 25 25 mcg PO DAILY 04/18/24 05/21/24 History mcg (1,000 unit) tablet clopidogrel 75 mg tablet 75 mg PO DAILY 04/18/24 05/21/24 History duloxetine 30 mg capsule,delayed 30 mg PO DAILY 04/18/24 05/21/24 History release empagliflozin 10 mg tablet 10 mg PO DAILY 04/18/24 05/21/24 History (Jardiance) ezetimibe 10 mg tablet 10 mg PO DAILY 04/18/24 05/21/24 History isosorbide mononitrate 30 mg 30 mg PO DAILY 04/18/24 05/21/24 History tablet,extended release 24 hr levothyroxine 100 mcg tablet 100 mcg PO DAILY 04/18/24 05/21/24 History lisinopril 5 mg tablet 5 mg PO DAILY 04/18/24 05/21/24 History metoprolol succinate 100 mg 100 mg PO DAILY 04/18/24 05/21/24 History tablet,extended release 24 hr mirabegron 50 mg tablet,extended 50 mg PO DAILY 04/18/24 05/21/24 History release 24 hr nitroglycerin 0.4 mg sublingual 0.4 mg sublingual Q5-15M PRN Chest 04/18/24 05/21/24 History tablet Pain omeprazole magnesium 20 mg 20 mg PO DAILY 04/18/24 05/21/24 History capsule,delayed release (Acid Information Security Engineer (omeprazole)) ranolazine 500 mg tablet,extended 500 mg PO BID 04/18/24 05/21/24 History release,12 hr tamsulosin 0.4 mg capsule 0.4 mg PO DAILY 04/18/24 05/21/24 History carbidopa 25 mg-levodopa 100 mg 1 tab PO TID #90 tabs 04/29/24 05/21/24 Rx tablet ferrous sulfate 325 mg (65 mg 325 mg PO Q48H #30 tabs 04/29/24 05/21/24 Rx iron) tablet hydrocodone 5 mg-acetaminophen 325 1 tab PO TID PRN Pain, Moderate 04/29/24 05/21/24 Rx mg tablet (4-6) #30 tabs sucralfate 100 mg/mL oral 1 gm PO ACHS #120 mL 04/29/24 05/21/24 Rx suspension Allergies Allergy/AdvReac Type Severity Reaction Status Date / Time Sulfa (Sulfonamide Allergy Intermediate Hives Verified 04/19/24 14:57 Antibiotics) oxycodone Allergy Verified 04/18/24 07:04 amoxicillin AdvReac Intermediate Vomiting Verified 04/19/24 14:57 Review of Systems Review of Systems ROS: Yes All systems reviewed with the patient and are negative except as otherwise documented Constitutional Constitutional: Reports as per HPI and Reports system reviewed and no additional complaints, except as documented Eyes Eyes: Reports as per HPI and Reports system reviewed and no additional complaints, except as documented ENT Ears, Nose, Mouth, and Throat: Yes as per HPI and Yes system reviewed and no additional complaints, except as documented Cardiovascular Cardiovascular: Reports system reviewed and no additional complaints, except as documented Respiratory Respiratory: Reports system reviewed and no additional complaints, except as documented Gastrointestinal Gastrointestinal: Reports system reviewed and no additional complaints, except as documented Genitourinary Genitourinary: Reports system reviewed and no additional complaints, except as documented Musculoskeletal Musculoskeletal: Reports system reviewed and no additional complaints, except as documented, Reports abnormal gait and Reports numbness Neurologic Neurologic: Reports system reviewed and no additional complaints, except as documented, Reports abnormal gait, Reports confusion and Reports numbness Psychiatric Psychiatric: Reports system reviewed and no additional complaints, except as documented and Reports confusion Exam Vital Signs (past 8 hours): - 05/20/24 21:00 05/20/24 21:05 05/20/24 21:05 Temperature Pulse Rate 64 64 Respiratory Rate 16 17 Blood Pressure 125/60 Pulse Oximetry 94 94 05/20/24 21:30 05/20/24 21:30 05/20/24 22:00 Temperature Pulse Rate 66 67 Respiratory Rate 15 13 Blood Pressure 119/57 L Pulse Oximetry 93 94 05/20/24 22:00 05/20/24 22:30 05/20/24 22:30 Temperature Pulse Rate 66 Respiratory Rate 15 Blood Pressure 125/58 L 121/62 Pulse Oximetry 93 05/21/24 01:55 05/21/24 04:38 Temperature 96.9 F L 97.1 F L Pulse Rate 72 88 Respiratory Rate 18 19 Blood Pressure 105/55 L 103/58 L Pulse Oximetry 95 96 Oxygen Delivery Method Room Air Const General: cooperative, comfortable and well developed Orientation: alert and oriented x3 HENMT Head: normal to inspection, normocephalic and atraumatic Face and sinus: normal facial exam Mouth: oral mucosae normal and moist mucous membranes Throat: posterior oropharynx normal Eyes General: appearance normal, both eyes and all related structures Pupils: PERRL EOM: EOM intact bilaterally Neck Neck: normal visual inspection and full ROM Chest Chest: normal inspection of the chest Resp Effort & Inspection: normal respiratory effort and able to speak in complete sentences Auscultation: clear to auscultation bilaterally Cardio Palpation: normal PMI Rate: regular rate Rhythm: regular rhythm Heart Sounds: S1 normal and S2 normal GI Inspection: normal to inspection Palpation: soft and no hepatosplenomegaly Auscultation: normal bowel sounds Skin General: no rashes or lesions noted Lesions: no lesions Rashes: no rashes Trauma: no lacerations or abrasions Neuro General: patient alert, patient awake, patient oriented x3 and no focal motor deficits Cranial Nerves: CN's II-XI intact bilaterally Cognition: normal cognition Speech: speech normal Gait: normal gait Motor: muscle tone normal throughout Sensory Exam: no sensory deficits noted Extrem General: full ROM and no calf tenderness Psych Appearance: grossly normal Mental Status: mental status grossly normal Speech and Movement: speech and movement normal Objective Labs 05/20/24 23:37 05/20/24 19:54 Labs: Laboratory Results - last 24 hr 05/20/24 05/20/24 05/20/24 19:54 20:09 20:31 WBC 11.9 H RBC 4.04 L Hgb 12.4 L Hct 37.5 L MCV 92.8 MCH 30.8 MCHC 33.2 RDW 16.4 H Plt Count 241 Neut % (Auto) 62.6 Lymph % (Auto) 24.8 L [place] % (Auto) 8.8 Eos % (Auto) 3.4 Baso % (Auto) 0.4 Neut # (Auto) 7500 H Lymph # (Auto) 3000 [place] # (Auto) 1100 H Eos # (Auto) 400 Baso # (Auto) 100 Sodium 137 Potassium 3.7 Chloride 105 Carbon Dioxide 19 L BUN 13 Creatinine 1.15 Estimated GFR > 60 BUN/Creatinine Ratio 11.3 Glucose 160 H Lactate 3.7 H Calcium 9.6 Total Bilirubin 1.5 H AST 40 ALT 20 Alkaline Phosphatase 89 Total Creatine Kinase 27 L Troponin I < 0.012 Total Protein 7.6 Albumin 4.3 Globulin 3.3 Albumin/Globulin Ratio 1.3 Lipase 131 Urine Color Urine Appearance Urine pH Ur Specific [place] Urine Protein Urine Glucose (UA) Urine Ketones Urine Occult Blood Urine Nitrate Urine Bilirubin Urine Urobilinogen Ur Leukocyte Esterase Urine RBC Urine WBC Ur Squamous Epith Cells Ur Transition Epith Cell Urine Bacteria Ur Culture Indicated? Vol Urine Centrifuged SARS-CoV-2 (PCR) Negative Influenza A (RT-PCR) Flu a negative Influenza B (RT-PCR) Flu b negative RSV (PCR) Negative Blood Type A Positive Antibody Screen Positive Antibody Identification Anti-Fya 05/20/24 05/20/24 05/20/24 21:53 23:20 23:37 WBC RBC Hgb 11.2 L Hct 33.4 L MCV MCH MCHC RDW Plt Count Neut % (Auto) Lymph % (Auto) [place] % (Auto) Eos % (Auto) Baso % (Auto) Neut # (Auto) Lymph # (Auto) [place] # (Auto) Eos # (Auto) Baso # (Auto) Sodium Potassium Chloride Carbon Dioxide BUN Creatinine Estimated GFR BUN/Creatinine Ratio Glucose Lactate 2.2 H Calcium Total Bilirubin AST ALT Alkaline Phosphatase Total Creatine Kinase Troponin I Total Protein Albumin Globulin Albumin/Globulin Ratio Lipase Urine Color Yellow Urine Appearance Cloudy Urine pH 5.5 Ur Specific [place] 1.025 Urine Protein Trace H Urine Glucose (UA) 3+ H Urine Ketones Negative Urine Occult Blood Negative Urine Nitrate Positive H Urine Bilirubin Negative Urine Urobilinogen 1.0 Ur Leukocyte Esterase Trace H Urine RBC None seen Urine WBC 30-100/hpf H Ur Squamous Epith Cells 0-1 /hpf Ur Transition Epith Cell 0-1/hpf Urine Bacteria Many (>30) H Ur Culture Indicated? Specimen cultured Vol Urine Centrifuged 10ml (spun) SARS-CoV-2 (PCR) Influenza A (RT-PCR) Influenza B (RT-PCR) RSV (PCR) Blood Type Antibody Screen Antibody Identification Assessment & Plan Assessment & Plan narrative: UTI, questionable syncope. The patient denies any loss of consciousness. -Blood culture, urine culture, -Antibiotics, ceftriaxone, -Monitor for urine retention, check post void residuals. I-V fluids -recheck lactic acid -Tylenol for fever and pain medications as needed -Follow-up on the urine culture -Telemetry CAD. Aspirin, Plavix, statins, isosorbide, metoprolol, nitroglycerin as needed Hypothyroidism. Restart levothyroxine and check lipids Hypertension. Restart lisinopril, metoprolol GERD. Restart omeprazole. Parkinson's disease. Restart levodopa. BPH. Restart Flomax. Diabetes mellitus type II, diet controlled. Restart Jardiance and monitor blood sugar ACHS. ADA diet. Depression. Restart bupropion Time-Based Coding :: [TOTAL MINUTES] spent with patient and on the chart (including review of chart, obtaining history, exam, reviewing outside data, placing orders, documenting exam and treatment plan, and counseling patient) on [DATE]. Quality VTE Deep Vein Thrombosis/Pulmonary Embolism Present on Admission: No MIPS - Admit I confirm the patient?s Advance Care Plan is present, Code status is documented, Surrogate decision maker is in patient?s record [If Yes, STOP here]: Yes MIPS - Meds 'Current medications' to include all prescriptions, [id number] products, herbals, cannabis/cannabidiol products, and vitamin/mineral/dietary (nutritional) supplements. I have utilized all available resources to obtain, update, or review the patient?s current medications. [If Yes, STOP here]: Yes
[2024-05-21] MEDS: LEVOTHYROXINE 100 MCG TABLET PO (06:46)
[2024-05-21 07:51] LABS: Lactate (Lactic Acid) 3.1 mmol/L (0.7-2.1)
[2024-05-21 07:52] LABS: BUN Creatinine Ratio 13.7 (6-22); Blood Urea Nitrogen 14 mg/dL (9-20); Calcium 9.4 mg/dL (8.4-10.2); Carbon Dioxide 19 mmol/L (22-32); Chloride 107 mmol/L (98-107); Cholesterol 93 mg/dL (140-199); Estimated Glomerular Filt Rate > 60 mL/min (>60); Glucose 124 mg/dL (80-110); HDL Cholesterol 37 mg/dL (40-60); HEMOLYSIS 43 (0-50); LDL Cholesterol Calculated 30 mg/dL (<100); Magnesium 1.6 mg/dL (1.6-2.3); Potassium 4.2 mmol/L (3.4-5.1); Sodium 138 mmol/L (137-145); Triglycerides 132 mg/dL (35-150)
[2024-05-21 08:23] LABS: Thyroid Stimulating Hormone 2.13 uIU/mL (0.47-4.68)
[2024-05-21 09:01] LABS: Reflexed Lactate in 2 Hours Y
[2024-05-21] MEDS: TAMSULOSIN 0.4 MG CAPSULE PO (09:19)
[2024-05-21] MEDS: EZETIMIBE 10 MG TABLET PO (09:19)
[2024-05-21] MEDS: ASPIRIN 81 MG CHEW TAB PO (09:19)
[2024-05-21] MEDS: DULOXETINE 30 MG CAPSULE PO (09:19)
[2024-05-21] MEDS: ISOSORBIDE MONONITRATE ER 30 MG TABLET PO (09:20)
[2024-05-21] MEDS: PANTOPRAZOLE DR 20 MG TABLET PO (09:20)
[2024-05-21] MEDS: ATORVASTATIN 20 MG TABLET 80 MG PO (09:20)
[2024-05-21] MEDS: CLOPIDOGREL 75 MG TABLET PO (09:20)
[2024-05-21] MEDS: OXYBUTYNIN 5 MG ER TAB 10 MG PO (09:20)
[2024-05-21] MEDS: CARBIDOPA-LEVODOPA 25/100 TABLET 1 EACH PO ×3 (09:20→20:29)
[2024-05-21] MEDS: CHOLECALCIFEROL (VITAMIN D3) 1,000 UNIT TABLET 1000 UNIT PO (09:21)
[2024-05-21] MEDS: SUCRALFATE 1 GM/10 ML ORAL SUSP PO ×4 (09:21→20:30)
[2024-05-21] MEDS: buPROPion XL 150 MG TAB PO (09:21)
[2024-05-21] MEDS: HYDROCODONE/ACET 5/325 TABLET 1 TAB PO ×2 (09:22→16:37)
[2024-05-21 09:36] LABS: Lactate 2HR (Lactic Acid Rflx) 2.3 mmol/L (0.7-2.1)
[2024-05-21] MEDS: RANOLAZINE 500 MG TAB.ER.12H PO ×2 (09:43→20:29)
[2024-05-21] MEDS: FERROUS SULFATE 325 MG TABLET PO (11:25)
[2024-05-21 12:00] VITALS: BP 120/73; PULSE 92; RESP 18; TEMP 36.4; O2SAT 100
--- NOTE | 2024-05-21 12:27 | PT-IP ANOTE ---
checked on pt this morning and pt in bed with his eyes closed. attempted to wake pt up but will utter one word but unable to stay awake. (+) SOB and O2 sat: 88-89 at room air with TX : 106-110. informed nurse. nurse gave pt O2 supplement. left pt with nurse. checked back on pt and pt continues to be somnolent. informed pt about getting out of the bed and pt stated I don't think so. will f/u.
--- NOTE | 2024-05-21 13:47 | PM.HP.1 ---
History of Present Illness History of Present Illness Date Patient Seen: 05/21/24 Time Patient Seen: 13:47 Chief complaint: syncope Narrative: Per overnight provider, 74 years old male with history of hypertension, hyperlipidemia, CAD, CABG in 2004, AAA repair in 2012, depression, hypothyroidism, BPH, GERD presented to the ER with a fall. The patient is poor historian. It sounds he was getting to go to bed when he was found down by caregivers. The patient was hospitalized from 04/18/2024 to 04/29/2024 for GI bleed. After discharge he was sent to rehab where he reside currently. On presentation he was found to be quite hypotensive but responded well to 1 L of bolus. Denies any shortness of breath, cough, fever, chest pain, palpitations, nausea, vomiting, diarrhea., Diarrhea or dysuria. Denies any melena or hematemesis. Laboratory shows WBC 11.9, lactic acid 2.2, UA shows UTI, total bilirubin 1.5, blood sugar 160, H&H 11.2/33.4. Positive urine culture for Staphylococcus epididymis pansensitive from 04/25/2024 but unclear if it was treated. Chest x-ray unremarkable, CT of the head unremarkable. In the ER he was given ceftriaxone 1 g IV, levofloxacin 500 mg p.o. and fluid bolus. Interval history: patient remains confused but he is more alert today, does not recall why he is in the hospital. He denies abdominal pain, chest pain, or shortness of breath. [facility] Social History household members: spouse Smoking Status: Never smoker Meds Home Medications and Allergies Home Medications Medication Instructions Recorded Confirmed Type acetaminophen 500 mg tablet 500 mg PO Q6H PRN Pain (Scale 04/18/24 05/21/24 History Score 1-3) aspirin 81 mg chewable tablet 81 mg PO DAILY 04/18/24 05/21/24 History atorvastatin 80 mg tablet 80 mg PO BEDTIME 04/18/24 05/21/24 History bupropion HCl 150 mg 24 hr tablet, 150 mg PO DAILY 04/18/24 05/21/24 History extended release cholecalciferol (vitamin D3) 25 25 mcg PO DAILY 04/18/24 05/21/24 History mcg (1,000 unit) tablet clopidogrel 75 mg tablet 75 mg PO DAILY 04/18/24 05/21/24 History duloxetine 30 mg capsule,delayed 30 mg PO DAILY 04/18/24 05/21/24 History release empagliflozin 10 mg tablet 10 mg PO DAILY 04/18/24 05/21/24 History (Jardiance) ezetimibe 10 mg tablet 10 mg PO DAILY 04/18/24 05/21/24 History isosorbide mononitrate 30 mg 30 mg PO DAILY 04/18/24 05/21/24 History tablet,extended release 24 hr levothyroxine 100 mcg tablet 100 mcg PO DAILY 04/18/24 05/21/24 History lisinopril 5 mg tablet 5 mg PO DAILY 04/18/24 05/21/24 History metoprolol succinate 100 mg 100 mg PO DAILY 04/18/24 05/21/24 History tablet,extended release 24 hr mirabegron 50 mg tablet,extended 50 mg PO DAILY 04/18/24 05/21/24 History release 24 hr nitroglycerin 0.4 mg sublingual 0.4 mg sublingual Q5-15M PRN Chest 04/18/24 05/21/24 History tablet Pain omeprazole magnesium 20 mg 20 mg PO DAILY 04/18/24 05/21/24 History capsule,delayed release (Acid Level Vial Inspector (omeprazole)) ranolazine 500 mg tablet,extended 500 mg PO BID 04/18/24 05/21/24 History release,12 hr tamsulosin 0.4 mg capsule 0.4 mg PO DAILY 04/18/24 05/21/24 History carbidopa 25 mg-levodopa 100 mg 1 tab PO TID #90 tabs 04/29/24 05/21/24 Rx tablet ferrous sulfate 325 mg (65 mg 325 mg PO Q48H #30 tabs 04/29/24 05/21/24 Rx iron) tablet hydrocodone 5 mg-acetaminophen 325 1 tab PO TID PRN Pain, Moderate 04/29/24 05/21/24 Rx mg tablet (4-6) #30 tabs sucralfate 100 mg/mL oral 1 gm PO ACHS #120 mL 04/29/24 05/21/24 Rx suspension Allergies Allergy/AdvReac Type Severity Reaction Status Date / Time Sulfa (Sulfonamide Allergy Intermediate Hives Verified 04/19/24 14:57 Antibiotics) oxycodone Allergy Verified 04/18/24 07:04 amoxicillin AdvReac Intermediate Vomiting Verified 04/19/24 14:57 Exam Vital Signs (past 8 hours): - 05/21/24 12:00 Temperature 97.5 F L Pulse Rate 92 H Respiratory Rate 18 Blood Pressure 120/73 Pulse Oximetry 100 Oxygen Flow Rate 0 Oxygen Delivery Method Room Air Oxygen Flow Rate 0 Const General: cooperative, comfortable and well developed Orientation: alert [facility] Head: normal to inspection, normocephalic and atraumatic Face and sinus: normal facial exam Mouth: oral mucosae normal and moist mucous membranes Throat: posterior oropharynx normal Eyes General: appearance normal, both eyes and all related structures Pupils: PERRL EOM: EOM intact bilaterally Neck Neck: normal visual inspection and full ROM Chest Chest: normal inspection of the chest Resp Effort & Inspection: normal respiratory effort and able to speak in complete sentences Auscultation: clear to auscultation bilaterally Cardio Rate: regular rate Rhythm: regular rhythm Heart Sounds: S1 normal and S2 normal GI Inspection: normal to inspection Palpation: soft and no hepatosplenomegaly Auscultation: normal bowel sounds Skin General: no rashes or lesions noted Lesions: no lesions Rashes: no rashes Trauma: no lacerations or abrasions Neuro General: patient alert, patient awake, patient oriented x3 and no focal motor deficits Cranial Nerves: CN's II-XI intact bilaterally Cognition: normal cognition Speech: speech normal Gait: normal gait Motor: muscle tone normal throughout Sensory Exam: no sensory deficits noted Extrem General: full ROM and no calf tenderness Psych Appearance: grossly normal Mental Status: mental status grossly normal Speech and Movement: speech and movement normal Objective Labs 05/20/24 23:37 05/21/24 07:12 Labs: Laboratory Results - last 24 hr 05/20/24 05/20/24 05/20/24 19:54 20:09 20:31 WBC 11.9 H RBC 4.04 L Hgb 12.4 L Hct 37.5 L MCV 92.8 MCH 30.8 MCHC 33.2 RDW 16.4 H Plt Count 241 Neut % (Auto) 62.6 Lymph % (Auto) 24.8 L [place] % (Auto) 8.8 Eos % (Auto) 3.4 Baso % (Auto) 0.4 Neut # (Auto) 7500 H Lymph # (Auto) 3000 [place] # (Auto) 1100 H Eos # (Auto) 400 Baso # (Auto) 100 Sodium 137 Potassium 3.7 Chloride 105 Carbon Dioxide 19 L BUN 13 Creatinine 1.15 Estimated GFR > 60 BUN/Creatinine Ratio 11.3 Glucose 160 H Lactate 3.7 H Calcium 9.6 Magnesium Total Bilirubin 1.5 H AST 40 ALT 20 Alkaline Phosphatase 89 Total Creatine Kinase 27 L Troponin I < 0.012 Total Protein 7.6 Albumin 4.3 Globulin 3.3 Albumin/Globulin Ratio 1.3 Triglycerides Cholesterol LDL Cholesterol, Calc HDL Cholesterol Lipase 131 TSH Urine Color Urine Appearance Urine pH Ur Specific [place] Urine Protein Urine Glucose (UA) Urine Ketones Urine Occult Blood Urine Nitrate Urine Bilirubin Urine Urobilinogen Ur Leukocyte Esterase Urine RBC Urine WBC Ur Squamous Epith Cells Ur Transition Epith Cell Urine Bacteria Ur Culture Indicated? Vol Urine Centrifuged SARS-CoV-2 (PCR) Negative Influenza A (RT-PCR) Flu a negative Influenza B (RT-PCR) Flu b negative RSV (PCR) Negative Blood Type A Positive Antibody Screen Positive Antibody Identification Anti-Fya 05/20/24 05/20/24 05/20/24 21:53 23:20 23:37 WBC RBC Hgb 11.2 L Hct 33.4 L MCV MCH MCHC RDW Plt Count Neut % (Auto) Lymph % (Auto) [place] % (Auto) Eos % (Auto) Baso % (Auto) Neut # (Auto) Lymph # (Auto) [place] # (Auto) Eos # (Auto) Baso # (Auto) Sodium Potassium Chloride Carbon Dioxide BUN Creatinine Estimated GFR BUN/Creatinine Ratio Glucose Lactate 2.2 H Calcium Magnesium Total Bilirubin AST ALT Alkaline Phosphatase Total Creatine Kinase Troponin I Total Protein Albumin Globulin Albumin/Globulin Ratio Triglycerides Cholesterol LDL Cholesterol, Calc HDL Cholesterol Lipase TSH Urine Color Yellow Urine Appearance Cloudy Urine pH 5.5 Ur Specific [place] 1.025 Urine Protein Trace H Urine Glucose (UA) 3+ H Urine Ketones Negative Urine Occult Blood Negative Urine Nitrate Positive H Urine Bilirubin Negative Urine Urobilinogen 1.0 Ur Leukocyte Esterase Trace H Urine RBC None seen Urine WBC 30-100/hpf H Ur Squamous Epith Cells 0-1 /hpf Ur Transition Epith Cell 0-1/hpf Urine Bacteria Many (>30) H Ur Culture Indicated? Specimen cultured Vol Urine Centrifuged 10ml (spun) SARS-CoV-2 (PCR) Influenza A (RT-PCR) Influenza B (RT-PCR) RSV (PCR) Blood Type Antibody Screen Antibody Identification 05/21/24 05/21/24 07:12 09:08 WBC RBC Hgb Hct MCV MCH MCHC RDW Plt Count Neut % (Auto) Lymph % (Auto) [place] % (Auto) Eos % (Auto) Baso % (Auto) Neut # (Auto) Lymph # (Auto) [place] # (Auto) Eos # (Auto) Baso # (Auto) Sodium 138 Potassium 4.2 Chloride 107 Carbon Dioxide 19 L BUN 14 Creatinine 1.02 Estimated GFR > 60 BUN/Creatinine Ratio 13.7 Glucose 124 H Lactate 3.1 H 2.3 H Calcium 9.4 Magnesium 1.6 Total Bilirubin AST ALT Alkaline Phosphatase Total Creatine Kinase Troponin I Total Protein Albumin Globulin Albumin/Globulin Ratio Triglycerides 132 Cholesterol 93 L LDL Cholesterol, Calc 30 HDL Cholesterol 37 L Lipase TSH 2.13 Urine Color Urine Appearance Urine pH Ur Specific [place] Urine Protein Urine Glucose (UA) Urine Ketones Urine Occult Blood Urine Nitrate Urine Bilirubin Urine Urobilinogen Ur Leukocyte Esterase Urine RBC Urine WBC Ur Squamous Epith Cells Ur Transition Epith Cell Urine Bacteria Ur Culture Indicated? Vol Urine Centrifuged SARS-CoV-2 (PCR) Influenza A (RT-PCR) Influenza B (RT-PCR) RSV (PCR) Blood Type Antibody Screen Antibody Identification Assessment & Plan Assessment & Plan narrative: Sepsis with acute metabolic encephalopathy, hypotension, JOVI, elevated bilirubin - continue ceftriaxone, presumed source most likely urinary based on initial evaluation. Urine cultures and blood cultures pending. Also possible PNA with cough. - encephalopathy is improving slightly today - consider addition of doxycycline for atypical coverage for PNA but seems to be improving with ceftriaxone alone and likely urinary source as noted above. - can stop IV fluids. can restart if hypotensive. CAD. Aspirin, it appears plavix was also re-added since last admission as an outpatient. Hg is elevated compared to prior values. continue statin, metoprolol, nitroglycerin as needed Hypothyroidism. Restart levothyroxine and check lipids Hypertension. Hold home lisinopril, resume home metoprolol. GERD with recent GI bleeding. Continue PO PPI with pantoprazole 20 mg Parkinson's disease. Restart home sinemet, started here last admission. BPH. Continue flomax. Diabetes mellitus type II, diet controlled. Restart Jardiance if patient able to bring in, and monitor blood sugar ACHS. ADA diet. Depression. Restart bupropion Code: DNR, surrogate is patient's spouse and children. DVT: SCDs with recent GI bleeding I have utilized all available immediate resources to obtain, update, or review the patient's current medications. Dispo: patient admitted under inpatient status. Unclear if will be able to discharge home or possible SNF, will have PT/OT evaluations. Additional history obtained via discussions with the overnight provider. These discussions contributed to the creation of the above assessment and plan. I have reviewed patient's presenting documentation, labs, and imaging personally. Time-Based Coding :: [TOTAL MINUTES] spent with patient and on the chart (including review of chart, obtaining history, exam, reviewing outside data, placing orders, documenting exam and treatment plan, and counseling patient) on [DATE]. Quality VTE Deep Vein Thrombosis/Pulmonary Embolism Present on Admission: No
--- NOTE | 2024-05-21 14:39 | PC.NURSE ---
Patient is able to feed himself breakfast this a.m. Eating about 50%. He states he takes his pills all at once with water and he is given morning meds broken in two parts, just with water. Initially he appeared to have swollowed all the pills and stated they were down. He then developed a coughing fit, spitting but did not vomit and no pills came up. Shortly afterwards he was observed to have shallow labored breathing and be diaphoretic with HR 120's, and 88-90% on RA. He is placed on 2 LNC, and BG check was 159. MD notified and aware. Patient remains mostly lethargic but able to awaken and answer short questions. PT is unable to work with him as he continues to fall asleep during the evaluation and multiple re attempts to work with him. He is allowed to rest, q 2 turn, cleaning of incontinence, continuous pulse ox, monitoring BG levels, telemetry monitoring, SCD's placed, bed alarm on, call light in reach and frequent rounding.
--- NOTE | 2024-05-21 16:35 | PT-IP ANOTE ---
checked back on pt this afternoon and pt continues to be lethargic and unable to keep his eyes open. pt not able to participate to do PT at this time.
[2024-05-21 17:00] VITALS: BP 120/71; PULSE 93; RESP 18; TEMP 36.8; O2SAT 94
[2024-05-21 20:00] VITALS: BP 102/56; PULSE 98; RESP 15; TEMP 36.4; O2SAT 91
[2024-05-21] MEDS: cefTRIAXone 2,000 MG in SODIUM CHLORIDE 0.9% 100 ML 200 MG IV (20:29)
[2024-05-22] VITALS (28 sets, daily range): BP systolic 75–116; BP diastolic 43–56; PULSE 80–120; RESP 20–49; TEMP 36.6–39.4; O2SAT 82–98
--- NOTE | 2024-05-22 05:00 | EKG_ITS ---
[place] [id number] [place] [id number] Test Date: 2024-05-22 Pat Name: Royal Chan Department: Room: 217 Gender: Male Real Estate Manager: : 1950 Requested By: Order Number: [id number] Reading MD: Adrian Wahl Measurements Intervals [place] Rate: 128 P: [place]: 184 QRS: -55 QRSD: 126 T: 66 QT: 322 QTc: 470 Interpretive Statements Sinus tachycardia Left axis deviation Nonspecific intraventricular block Minimal voltage criteria for LVH, may be normal variant ( Rogelio product ) Electronically Signed On 05-22-2024 23:45:21 PST by Adrian Wahl
--- NOTE | 2024-05-22 05:09 | DI.CT.S_ITS ---
PROCEDURE: CT HEAD/BRAIN WO CON INDICATIONS: CVA TECHNIQUE: Noncontrast 4.5 mm thick angled axial sections acquired from the foramen magnum to the vertex, with coronal and sagittal reformats. For radiation dose reduction, the following was used: automated exposure control, adjustment of mA and/or kV according to patient size. COMPARISON: [facility], CT, CT HEAD/BRAIN WO CON, 05/20/2024, 20:10. FINDINGS: Image quality: Diagnostic. CSF spaces: Basal cisterns are patent. No extra-axial fluid collections. The ventricles are symmetric in size and shape. Brain: No intracranial bleeds or masses. There is cerebral volume loss for age, with resultant ventricular and sulcal prominence. There are periventricular and deep white matter chronic small vessel ischemic changes. There is intracranial internal carotid artery atherosclerosis. Skull and face: Calvarium and visualized facial bones appear intact, without suspicious lesions. Sinuses: Visualized sinuses and mastoids are clear. IMPRESSION: No acute intracranial pathology. Findings are concordant with preliminary interpretation provided by [facility]. Dictated by: Matthew Melvin M.D. on 05/22/2024 at 8:23 Approved by: Matthew Melvin M.D. on 05/22/2024 at 8:25
[2024-05-22] MEDS: METOPROLOL TARTRATE 5 MG/5 ML INJ IV (05:20)
[2024-05-22 05:35] LABS: Add Manual Diff / Slide Review NO; Basophils Absolute Auto 100 /uL (0-100); Basophils Percent Auto 0.4 % (0-2); Eosinophils Absolute Auto 0 /uL (0-450); Eosinophils Percent Auto 0.1 % (2-4); Hemoglobin 12.1 g/dL (13.5-17.5); Lymphocytes Absolute Auto 700 /uL (1100-4500); Lymphocytes Percent Auto 4.8 % (25-40); Mean Corpuscular HGB Conc 33.5 % (30-36); Mean Corpuscular Volume 92.3 fL (80-100); Monocytes Absolute Auto 600 /uL (0-900); Monocytes Percent Auto 3.9 % (3-14); Neutrophils Absolute Auto 12900 /uL (1500-7000); Neutrophils Percent Auto 90.8 % (50-75); Platelet Count 159 X10^3/uL (150-400); Red Cell Distribution Width 16.7 % (11.6-14.8); White Blood Cell Count 14.2 X10^3/uL (4.5-11.0)
[2024-05-22] MEDS: ONDANSETRON 4 MG/2 ML INJ IV (05:40)
[2024-05-22 05:44] LABS: Blood Urea Nitrogen 20 mg/dL (9-20); Calcium 9.5 mg/dL (8.4-10.2); Carbon Dioxide 19 mmol/L (22-32); Chloride 108 mmol/L (98-107); Estimated Glomerular Filt Rate > 60 mL/min (>60); Glucose 149 mg/dL (80-110); HEMOLYSIS < 15 (0-50); Magnesium 1.5 mg/dL (1.6-2.3); Potassium 4.1 mmol/L (3.4-5.1); Sodium 138 mmol/L (137-145)
--- NOTE | 2024-05-22 05:51 | DI.MRI.S_ITS ---
PROCEDURE: MR STROKE Pre- and post-contrast brain MRI, non-contrast brain MR angiogram, pre- and postcontrast neck MR angiogram INDICATIONS: r/o CVA TECHNIQUE: Brain: Noncontrast axial T1 spin echo, axial T2 fast spin echo, sagittal and axial FLAIR, coronal T2 fast spin echo, axial gradient echo, axial diffusion and ADC through the brain. After the administration of contrast, axial 3D VIBE of the cranial vasculature and brain. Brain MRA: Non-contrast 3-D time of flight MR angiogram, with multiple bjofkku-nprofepev-ssfgzubqao (MIP) reformats performed. Neck MRA: Axial and sagittal TruFISP through the neck. Coronal dynamic MR angiogram during administration of contrast in the arterial and venous phases, with 3-dimenstional cuivoma-jnlevqojj-ozhiipewcg (MIP) reformats constructed from subtraction images. COMPARISON: None. FINDINGS: Image quality: Excellent. BRAIN: CSF spaces: Ventricles are normal in size and shape. Basal cisterns are patent. No extra-axial fluid collections. Brain: No intracranial bleeds or mass effects. Moise-white matter interface is normal. Age-related volume loss and moderate small vessel ischemic change. Diffusion weighted images show no acute infarct. Brainstem appears normal. Normal intravascular flow voids are present. No abnormal intracranial enhancement. Skull and face: Calvarial marrow signal is normal. Orbits appear normal. Sinuses: Sinuses and mastoids are clear. BRAIN MR ANGIOGRAM: Anterior circulation: Intracranial internal carotid arteries are normal in size and enhancement. The flow within the paired anterior cerebral arteries is normal and symmetric. The flow within the middle cerebral arteries is normal and symmetric. The anterior communicating artery is seen. No stenoses, occlusions, or aneurysms. Posterior circulation: The visualized portions of the vertebral arteries demonstrate normal caliber, and join to form a normal appearing basilar artery. The flow within the posterior cerebral arteries is normal and symmetric. No stenoses, occlusions, or aneurysms. NECK MR ANGIOGRAM: Carotids: Great vessels demonstrate a conventional anatomy as they arise from the aortic arch. The origins of the common carotid arteries appear patent. The calibers and courses of both common carotid arteries are normal. The bifurcation regions appear normal bilaterally. Mild, less than 50% proximal right internal carotid artery stenosis. Left proximal internal carotid artery is widely patent. Posterior circulation: The origins of the vertebral arteries appear patent. More superior portions of both vertebral arteries demonstrate normal course and caliber, and join to form a normal appearing basilar artery. Miscellaneous: Subclavian arteries appear patent. Pre-contrast images through the neck show no soft tissue abnormalities. IMPRESSION: BRAIN MRI: Age-related volume loss, moderate small vessel ischemic change. No acute stroke. No acute intracranial process. BRAIN MR ANGIOGRAM: Unremarkable NECK MR ANGIOGRAM: No hemodynamically significant carotid stenosis. Dictated by: Isael Delcid M.D. on 05/22/2024 at 8:48 Approved by: Isael Delcid M.D. on 05/22/2024 at 8:52
[2024-05-22] MEDS: ACETAMINOPHEN IV 1,000 MG/100 ML VIAL 400 MG IV (06:07)
[2024-05-22] MEDS: SODIUM CHLORIDE 0.9% 1,000 ML 250 ML IV ×2 (06:08→21:04)
--- NOTE | 2024-05-22 06:15 | PC.NURSE ---
Nightshift 0014 Pt had a run of Vtach 200's for an 8 second duration, Patient was asleep, EXPLOSIVE ORDNANCE DISPOSAL SPECIALIST and This RN woke patient and Pt denied any new sensations or pain / nausea VS WNL. MD Lutz notified and print out of telemetry sent via Web messenger. Dr Lutz responded with noted. at 0457 EXPLOSIVE ORDNANCE DISPOSAL SPECIALIST noted a run of Vtach 200's on patients telemetry. or rn checked on patient then notified corporate sales trainer and this RN of situation, Pt was holding chest, was non verbal but was able to respond with head nodding. SALARY AND WAGE ADMINISTRATOR took BG of 146; When asked if he had chest pain, nodded yes. denied nausea. RN notified MD Lutz of patient's rapid change via web messenger, RN then called MD to update of possible code stroke situation, MD responded with no, and ordered IV metoprolol 5mg (see EMAR) and a stat CT without contrast, and a fluid bolus of NS 1000, RN administered metoprolol and started bolus; transported Pt down to CT for exam. After returning to floor, blood pressure was 100's/50's with a sustained heart rate in low 100's-110 pt was on 3 liters NC, denied chest pain but did have a wave of nausea RN gave IV zofran, SALARY AND WAGE ADMINISTRATOR noted patient oral temp 98.9 but axillary was 103.[address] Lutz and requested IV Tylenol since patient current state would not be safe to take anything oral. continue to monitor patient. Pt is able to verbally respond now and has equal weakness in bilateral arms and unable to lift legs, Pt had equal facial symmetry, but was not able to note any tactile sensation on face or arms.
[2024-05-22] MEDS: MAGNESIUM CHLORIDE 64 MG TABLET 128 MG PO (08:51)
[2024-05-22] MEDS: CARBIDOPA-LEVODOPA 25/100 TABLET 1 EACH PO ×3 (08:57→20:16)
[2024-05-22] MEDS: TAMSULOSIN 0.4 MG CAPSULE PO (08:57)
[2024-05-22] MEDS: DULOXETINE 30 MG CAPSULE PO (08:57)
[2024-05-22] MEDS: RANOLAZINE 500 MG TAB.ER.12H PO ×2 (08:57→20:15)
[2024-05-22] MEDS: PANTOPRAZOLE DR 20 MG TABLET PO (08:57)
[2024-05-22] MEDS: ASPIRIN 81 MG CHEW TAB PO (08:57)
[2024-05-22] MEDS: EZETIMIBE 10 MG TABLET PO (08:57)
[2024-05-22] MEDS: SUCRALFATE 1 GM/10 ML ORAL SUSP PO ×4 (08:57→20:15)
[2024-05-22] MEDS: ATORVASTATIN 20 MG TABLET 80 MG PO (08:57)
[2024-05-22] MEDS: CLOPIDOGREL 75 MG TABLET PO (08:58)
[2024-05-22] MEDS: OXYBUTYNIN 5 MG ER TAB 10 MG PO (08:58)
[2024-05-22] MEDS: CHOLECALCIFEROL (VITAMIN D3) 1,000 UNIT TABLET 1000 UNIT PO (08:58)
[2024-05-22] MEDS: buPROPion XL 150 MG TAB PO (08:58)
[2024-05-22] MEDS: SODIUM CHLORIDE 0.9% 1,000 ML 125 ML IV (09:52)
--- NOTE | 2024-05-22 11:24 | PC.NURSE ---
Received report from night RN that patient had runs of V-tac HR 200's with hypotension and minimal responsiveness. He completed 1 liter Bolus and was taken to MRI this a.m. Upon return from MRI he is alert, OX2, answering short questions and able to eat a few bites of breakfast and take pills in applesauce. BP still remins 80's /50's and per hospitalist another 500 cc NS bolus administered. After completion of 2nd Bolus BP is 90/40, HR 96 and MD explained to the patient plan of transferring him to the ICU. Son Daryl (DPOA) had called to get an update from the RN and informed him of events overnight, MRI, hypotension and plan to transfer to the ICU. He stated he would also call Myrtle (pt's ) and update her as well. Patient transferred to room 230 via bed at approximately 1100 a.m.
--- NOTE | 2024-05-22 11:49 | PT-IP ANOTE ---
per hospitalist during rounds meeting: PT on hold for today. pt will be transferred to ICU. pt not medically stable at this time.
[2024-05-22 12:46] LABS: MRSA (Nasal) PCR DETECTED (Not Detect)
--- NOTE | 2024-05-22 14:10 | DI.RAD.S_ITS ---
PROCEDURE: XR CHEST FOR PICC 1V INDICATIONS: verify PICC placement COMPARISON: [facility], CR, XR CHEST 1V, 05/20/2024, 20:06. [facility], CR, XR CHEST 1V, 04/19/2024, 10:11. FINDINGS: PICC was placed by the intravenous therapy team from the left side. Fluoroscopic spot film demonstrates the tip of PICC projecting to the area of cavoatrial junction. Mediastinal surgical clips. No significant pleural effusion, pneumothorax, or focal lung consolidation. IMPRESSION: Tip of PICC projects to the area of cavoatrial junction. Dictated by: Abhishek Villela M.D. on 05/22/2024 at 15:06 Approved by: Abhishek Villela M.D. on 05/22/2024 at 15:07
--- NOTE | 2024-05-22 14:12 | PM.PN.1 ---
Subjective Subjective Interval history: Overnight patient became very drowsy, head CT and MRI unremarkable, was tachycardic and hypotensive improved with IV fluids. Improved thus far with fluids, but transferred to the ICU in case of development of shock. WBC elevated today. Exam Vital Signs (past 8 hours): - 05/22/24 07:00 05/22/24 08:44 Pulse Oximetry 93 Oxygen Delivery Method Nasal Cannula Nasal Cannula Oxygen Flow Rate 2 Oxygen Delivery Method Nasal Cannula Oxygen Flow Rate 2 Narrative Exam Narrative: NAD, lethargic and slowed responses. Lungs are clear, normal rate and effort. Heart is regular, no murmur gallop or rub. Abdomen is soft, non distended. Extremities are free of edema. Objective Labs 05/22/24 04:40 05/22/24 04:40 Labs: Laboratory Results - last 24 hr 05/22/24 05/22/24 04:40 11:30 WBC 14.2 H RBC 3.90 L Hgb 12.1 L Hct 36.0 L MCV 92.3 MCH 31.0 MCHC 33.5 RDW 16.7 H Plt Count 159 Neut % (Auto) 90.8 H D Lymph % (Auto) 4.8 L D [place] % (Auto) 3.9 Eos % (Auto) 0.1 L Baso % (Auto) 0.4 Neut # (Auto) 57020 H Lymph # (Auto) 700 L [place] # (Auto) 600 Eos # (Auto) 0 Baso # (Auto) 100 Sodium 138 Potassium 4.1 Chloride 108 H Carbon Dioxide 19 L BUN 20 Creatinine 1.25 Estimated GFR > 60 BUN/Creatinine Ratio 16.0 Glucose 149 H Calcium 9.5 Magnesium 1.5 L Nasal Screen MRSA (PCR) Detected H [facility] Social History household members: spouse Smoking Status: Never smoker Assessment & Plan Assessment & Plan narrative: Sepsis with acute metabolic encephalopathy, hypotension, JOVI, elevated bilirubin, acute respiratory failure with hypoxia. - continue ceftriaxone, presumed source most likely urinary based on initial evaluation. Urine cultures and blood cultures pending. Also possible PNA with cough. Will add doxycycline today given worsening. - encephalopathy is improving slightly today - consider addition of doxycycline for atypical coverage for PNA but seems to be improving with ceftriaxone alone and likely urinary source as noted above. - restart IV fluids today, given boluses with improvement in BP. PICC line placed in case of need of pressor support and moved to the ICU. - consider broadening antibiotic if worsening. CAD. Aspirin, it appears plavix was also re-added since last admission as an outpatient. Hg is elevated compared to prior values. continue statin, metoprolol, nitroglycerin as needed Hypothyroidism. Restart levothyroxine and check lipids Hypertension. Hold home lisinopril, resumed home metoprolol. GERD with recent GI bleeding. Continue PO PPI with pantoprazole 20 mg Parkinson's disease. Restart home sinemet, started here last admission. BPH. Continue flomax. Diabetes mellitus type II, diet controlled. Restart Jardiance if patient able to bring in, and monitor blood sugar ACHS. ADA diet. Depression. Restart bupropion Code: DNR, surrogate is patient's spouse and children. DVT: SCDs with recent GI bleeding I have utilized all available immediate resources to obtain, update, or review the patient's current medications. Dispo: patient admitted under inpatient status. Now in the ICU. Unclear if will be able to discharge home or possible SNF, will have PT/OT evaluations. Additional history obtained via discussions with the overnight provider. These discussions contributed to the creation of the above assessment and plan. I have reviewed patient's presenting documentation, labs, and imaging personally. I spent 35 minutes providing critical care management this patient. This excludes time spent in performing separately billed procedures. Time-Based Coding :: [TOTAL MINUTES] spent with patient and on the chart (including review of chart, obtaining history, exam, reviewing outside data, placing orders, documenting exam and treatment plan, and counseling patient) on [DATE]. Quality VTE Deep Vein Thrombosis/Pulmonary Embolism Present on Admission: No
--- NOTE | 2024-05-22 15:13 | CM.DANOTE ---
Initial DCP Assessment Visit Note Reviewed EMR and team rounds for status updates. Met with pt's to re-introduce self and role, pt is still confused and was unable to participate in d/c planning needs. Pt was just moved from [facility] for rehab, to [facility] for long-term care. Family very involved, he was last admitted from 04/18-04/29/24-see last visit note for details. Pt may need Home Health at d/c, depending on his ability to improve back to baseline. Payor: [facility] Adv PCP: Dr. Lugo Pt is a 74 year-old M who presented to the ED via EMS after his caregivers at [facility] found him down on the ground. He is a poor self historian at baseline, recently dx with Parkinson's disease. He was found to have a UTI, was started on IV ABO's, CT and MRI of head were negative for abnormalities. Last night he became tachycardic and hypotensive, so was moved to the ICU for close monitoring. DCP will continue to monitor and assist with final d/c needs and recommendations. Discharge Planning/Care Management CM Discharge Assessment Start: 05/22/24 15:09 Freq: Status: Active Protocol: Document 05/22/24 15:10 DPL (Rec: 05/22/24 15:13 DPL [id number]) Discharge Planning Assessment Assigned Gear Lapper MARYCRUZ Marinelli Advance Directives? No History Provided By Family Member,Medical Record Has Patient been admitted in last 30 Yes days? Comment 04/18-04/29/24, same issues Prior Living Arrangements Assisted Living Comment [facility] Household Members none Type of transporation used prior to Relies on Others admit Willing to Return to Facility? Yes Independent with ADL's No: modified w/assistance, no AD Is patient alert and oriented? No Needs Assistance With Bathing,Grooming,Meal Prep, Managing Medications,Home Chores / Shopping Caregiver for Another No DME Already Rented / Owned Bath Bench,Elevated Toilet Seat,FWW / Walker Clinicals Faxed No Patient/Family Preference Home with Home Health Comment Likely will need HH at [facility] at d/c. Barriers to Discharge No Discharge Plan Assisted Living Facility Transportation Arrangement Facility If patient plan is home with home health No : Has signed face to face form been completed? Whiteboard Updated in Patient Room with Yes name and ext. # of Gear Lapper Review Status In Process Please Provide Date Initial DC 05/22/24 Assessment Was Performed
[2024-05-22 15:46] LABS: Add Manual Diff / Slide Review NO; Basophils Absolute Auto 100 /uL (0-100); Basophils Percent Auto 0.6 % (0-2); Eosinophils Absolute Auto 0 /uL (0-450); Eosinophils Percent Auto 0.3 % (2-4); Hematocrit 31.3 % (41-53); Hemoglobin 10.6 g/dL (13.5-17.5); Lymphocytes Absolute Auto 700 /uL (1100-4500); Lymphocytes Percent Auto 6.2 % (25-40); Mean Corpuscular HGB Conc 33.7 % (30-36); Mean Corpuscular Hemoglobin 31.2 PG (26-34); Mean Corpuscular Volume 92.3 fL (80-100); Monocytes Absolute Auto 400 /uL (0-900); Monocytes Percent Auto 3.8 % (3-14); Neutrophils Absolute Auto 10300 /uL (1500-7000); Neutrophils Percent Auto 89.1 % (50-75); Platelet Count 134 X10^3/uL (150-400); Red Blood Cell Count 3.39 X10^6/uL (4.5-5.9); Red Cell Distribution Width 16.6 % (11.6-14.8); White Blood Cell Count 11.6 X10^3/uL (4.5-11.0)
[2024-05-22 16:08] LABS: Alanine Aminotransferase 30 IU/L (<50); Alkaline Phosphatase 82 U/L (38-126); Aspartate Aminotransferase 43 IU/L (17-59); BUN Creatinine Ratio 19.5 (6-22); Bilirubin Total 2.4 mg/dL (0.2-1.3); Blood Urea Nitrogen 23 mg/dL (9-20); Calcium 8.8 mg/dL (8.4-10.2); Carbon Dioxide 21 mmol/L (22-32); Chloride 110 mmol/L (98-107); Estimated Glomerular Filt Rate > 60 mL/min (>60); Glucose 142 mg/dL (80-110); HEMOLYSIS < 15 (0-50); Magnesium 1.6 mg/dL (1.6-2.3); Potassium 4.1 mmol/L (3.4-5.1); Sodium 138 mmol/L (137-145)
--- NOTE | 2024-05-22 18:07 | PC.NURSE ---
Transfer/Day Shift Note Patient received to room 230 from 217 at 1100. Slider board used to transfer to ICU bed. Pt is alert and oriented x2, forgetful, cooperative with care. On 2L NC with SpO2 mid-90s. BP 80s/50s on arrival, IVF 125 ml/hr. PICC line placed by DI nurse to LUE. BP increased to 110s/50s, IVF decreased to 75 ml/hr per MD order. Goal MAP per MD is 65 and above. Pt incontinent of urine, straight cathed per MD to obtain urine sample as previous sample unsuitable for culture. SR in the 90s. Call light within reach. Bed alarm on. Myrtle at bedside this afternoon and updated.
[2024-05-22] MEDS: MELATONIN 3 MG TABLET 9 MG PO (20:15)
[2024-05-22] MEDS: ACETAMINOPHEN 325 MG TABLET 650 MG PO (20:15)
[2024-05-22] MEDS: DOXYCYCLINE 100 MG in SODIUM CHLORIDE 0.9% 100 ML IV (20:16)
[2024-05-22] MEDS: cefTRIAXone 2,000 MG in SODIUM CHLORIDE 0.9% 100 ML 200 MG IV (20:16)
[2024-05-22] MEDS: HYDROCODONE/ACET 5/325 TABLET 1 TAB PO (20:16)
[2024-05-23] VITALS (61 sets, daily range): BP systolic 88–130; BP diastolic 50–61; PULSE 80–98; RESP 20–48; TEMP 37.8–39.3; O2SAT 93–98
[2024-05-23] MEDS: ACETAMINOPHEN 325 MG TABLET 650 MG PO ×2 (02:14→08:14)
[2024-05-23 03:43] LABS: Add Manual Diff / Slide Review NO; Basophils Absolute Auto 0 /uL (0-100); Basophils Percent Auto 0.4 % (0-2); Eosinophils Absolute Auto 100 /uL (0-450); Eosinophils Percent Auto 0.8 % (2-4); Hematocrit 28.4 % (41-53); Hemoglobin 9.7 g/dL (13.5-17.5); Lymphocytes Absolute Auto 700 /uL (1100-4500); Lymphocytes Percent Auto 7.1 % (25-40); Mean Corpuscular Hemoglobin 31.2 PG (26-34); Monocytes Absolute Auto 300 /uL (0-900); Monocytes Percent Auto 3.2 % (3-14); Neutrophils Absolute Auto 8100 /uL (1500-7000); Neutrophils Percent Auto 88.5 % (50-75); Platelet Count 118 X10^3/uL (150-400); Red Blood Cell Count 3.09 X10^6/uL (4.5-5.9); Red Cell Distribution Width 16.5 % (11.6-14.8); White Blood Cell Count 9.1 X10^3/uL (4.5-11.0)
[2024-05-23 03:52] LABS: Magnesium 1.6 mg/dL (1.6-2.3)
[2024-05-23] MEDS: LEVOTHYROXINE 100 MCG TABLET PO (06:15)
[2024-05-23] MEDS: PANTOPRAZOLE DR 20 MG TABLET PO (06:15)
[2024-05-23] MEDS: MAGNESIUM CHLORIDE 64 MG TABLET 128 MG PO (06:41)
[2024-05-23] MEDS: SUCRALFATE 1 GM/10 ML ORAL SUSP PO ×4 (08:14→22:21)
[2024-05-23] MEDS: CHOLECALCIFEROL (VITAMIN D3) 1,000 UNIT TABLET 1000 UNIT PO (08:14)
[2024-05-23] MEDS: RANOLAZINE 500 MG TAB.ER.12H PO ×2 (08:14→22:20)
[2024-05-23] MEDS: DULOXETINE 30 MG CAPSULE PO (08:14)
[2024-05-23] MEDS: EZETIMIBE 10 MG TABLET PO (08:14)
[2024-05-23] MEDS: ATORVASTATIN 20 MG TABLET 80 MG PO (08:14)
[2024-05-23] MEDS: DOXYCYCLINE 100 MG in SODIUM CHLORIDE 0.9% 100 ML IV ×2 (08:15→22:26)
[2024-05-23] MEDS: CLOPIDOGREL 75 MG TABLET PO (08:15)
[2024-05-23] MEDS: TAMSULOSIN 0.4 MG CAPSULE PO (08:15)
[2024-05-23] MEDS: CARBIDOPA-LEVODOPA 25/100 TABLET 1 EACH PO ×3 (08:15→22:26)
[2024-05-23] MEDS: ASPIRIN 81 MG CHEW TAB PO (08:15)
[2024-05-23] MEDS: buPROPion XL 150 MG TAB PO (08:15)
--- NOTE | 2024-05-23 08:29 | PM.PN.1 ---
Subjective Subjective Interval history: Summary: Overnight patient became very drowsy, head CT and MRI unremarkable, was tachycardic and hypotensive improved with IV fluids. Improved thus far with fluids, but transferred to the ICU in case of development of shock. WBC elevated today. S: He denies pain, or shortness a breath. He was a little bit confused. He was no questions. Exam Vital Signs (past 8 hours): - 05/23/24 00:30 05/23/24 00:30 05/23/24 00:45 Temperature 100.2 F H Pulse Rate 80 Respiratory Rate 36 H Blood Pressure 99/57 L 102/55 L Pulse Oximetry 97 Oxygen Flow Rate 05/23/24 00:45 05/23/24 01:00 05/23/24 01:00 Temperature 100.2 F H 100.4 F H Pulse Rate 81 82 Respiratory Rate 38 H 38 H Blood Pressure 105/59 L Pulse Oximetry 96 96 Oxygen Flow Rate 05/23/24 01:30 05/23/24 01:30 05/23/24 02:00 Temperature 100.8 F H Pulse Rate 84 Respiratory Rate 34 H Blood Pressure 117/57 L 110/56 L Pulse Oximetry 96 Oxygen Flow Rate 2 05/23/24 02:00 05/23/24 02:14 05/23/24 02:30 Temperature 101.1 F H 101.2 F H 101.7 F H Pulse Rate 87 93 H Respiratory Rate 48 H 45 H Blood Pressure Pulse Oximetry 96 96 Oxygen Flow Rate 2 05/23/24 02:31 05/23/24 02:31 05/23/24 02:44 Temperature 101.7 F H 102.0 F H Pulse Rate 93 H Respiratory Rate 46 H Blood Pressure 126/56 L Pulse Oximetry 96 Oxygen Flow Rate 05/23/24 03:00 05/23/24 03:00 05/23/24 03:30 Temperature 102.0 F H 102.0 F H Pulse Rate 94 H 93 H Respiratory Rate 47 H 44 H Blood Pressure 101/51 L Pulse Oximetry 96 96 Oxygen Flow Rate 2 05/23/24 03:30 05/23/24 04:00 05/23/24 04:00 Temperature 102.0 F H Pulse Rate 91 H Respiratory Rate 42 H Blood Pressure 97/51 L 102/51 L Pulse Oximetry 96 Oxygen Flow Rate 2 05/23/24 04:30 05/23/24 04:31 05/23/24 04:31 Temperature 102.0 F H 102.0 F H Pulse Rate 92 H 92 H Respiratory Rate 45 H 44 H Blood Pressure 122/58 L Pulse Oximetry 96 96 Oxygen Flow Rate 05/23/24 05:00 05/23/24 05:00 05/23/24 05:30 Temperature 102.2 F H Pulse Rate 93 H Respiratory Rate 43 H Blood Pressure 109/57 L 117/61 Pulse Oximetry 97 Oxygen Flow Rate 2 05/23/24 05:30 05/23/24 06:00 05/23/24 06:00 Temperature 102.4 F H 102.6 F H Pulse Rate 93 H 93 H Respiratory Rate 48 H 44 H Blood Pressure 108/56 L Pulse Oximetry 98 97 Oxygen Flow Rate 2 05/23/24 08:14 Temperature 102.7 F H Pulse Rate Respiratory Rate Blood Pressure Pulse Oximetry Oxygen Flow Rate Oxygen Delivery Method Nasal Cannula Oxygen Flow Rate 2 Narrative Exam Narrative: NAD, alert and oriented. Fluent speech. He was slow to answer questions and has a flat affect consistent with his Parkinson's disease. Lungs are clear, normal rate and effort. Heart is regular, no murmur gallop or rub. Abdomen is soft, non distended. Extremities are free of edema. Objective Imaging Multiple studies:: Radiologist's impression: Chest x-ray: FINDINGS: PICC was placed by the intravenous therapy team from the left side. Fluoroscopic spot film demonstrates the tip of PICC projecting to the area of cavoatrial junction. Mediastinal surgical clips. No significant pleural effusion, pneumothorax, or focal lung consolidation. Lung kim clear IMPRESSION: Tip of PICC projects to the area of cavoatrial junction. Brain MRI: BRAIN MRI: Age-related volume loss, moderate small vessel ischemic change. No acute stroke. No acute intracranial process. BRAIN MR ANGIOGRAM: Unremarkable NECK MR ANGIOGRAM: No hemodynamically significant carotid stenosis. Labs 05/23/24 03:34 05/22/24 15:21 Labs: Laboratory Results - last 24 hr 05/22/24 05/22/24 05/23/24 11:30 15:21 03:34 WBC 11.6 H 9.1 RBC 3.39 L 3.09 L Hgb 10.6 L 9.7 L Hct 31.3 L 28.4 L MCV 92.3 92.0 MCH 31.2 31.2 MCHC 33.7 34.0 RDW 16.6 H 16.5 H Plt Count 134 L 118 L Neut % (Auto) 89.1 H 88.5 H Lymph % (Auto) 6.2 L 7.1 L [place] % (Auto) 3.8 3.2 Eos % (Auto) 0.3 L 0.8 L Baso % (Auto) 0.6 0.4 Neut # (Auto) 62106 H 8100 H Lymph # (Auto) 700 L 700 L [place] # (Auto) 400 300 Eos # (Auto) 0 100 Baso # (Auto) 100 0 Sodium 138 Potassium 4.1 Chloride 110 H Carbon Dioxide 21 L BUN 23 H Creatinine 1.18 Estimated GFR > 60 BUN/Creatinine Ratio 19.5 Glucose 142 H Calcium 8.8 Magnesium 1.6 1.6 Total Bilirubin 2.4 H AST 43 ALT 30 Alkaline Phosphatase 82 Total Protein 6.0 L Albumin 3.0 L Globulin 3.0 Albumin/Globulin Ratio 1.0 Nasal Screen MRSA (PCR) Detected H [facility] Social History household members: none Smoking Status: Never smoker Assessment & Plan Assessment & Plan narrative: Sepsis with acute septic encephalopathy, hypotension, JOVI, elevated bilirubin, acute respiratory failure with hypoxia. CAD, stable. Aspirin, it appears plavix was also re-added since last admission as an outpatient. Hg is elevated compared to prior values. continue statin, metoprolol, nitroglycerin as needed Hypothyroidism, stable. Restart levothyroxine and check lipids. Hypertension, stable. Hold home lisinopril, resumed home metoprolol. GERD with recent GI bleeding, stable. Continue PO PPI with pantoprazole 20 mg. Parkinson's disease, stable. Restart home sinemet, started here last admission. BPH, stable. Continue flomax. Diabetes mellitus type II, diet controlled, stable. Restart Jardiance if patient able to bring in, and monitor blood sugar ACHS. ADA diet. Depression, stable. Restart bupropion PLAN: -repeat chest x-ray to rule out volume overload. -expand antibiotic coverage by stopping ceftriaxone and starting cefepime. -monitor mental status. -follow cultures. Urine does have many bacteria in it. -monitor hemoglobin. -monitor blood pressure, left arm PICC in place. Has not needed pressors but did get 2 fluid boluses overnight. REJI: Returned to SNF around 05/26. Code: DNR, surrogate is patient's spouse and children. DVT: SCDs with recent GI bleeding I have utilized all available immediate resources to obtain, update, or review the patient's current medications. Time-Based Coding :: [TOTAL MINUTES] spent with patient and on the chart (including review of chart, obtaining history, exam, reviewing outside data, placing orders, documenting exam and treatment plan, and counseling patient) on [DATE]. Quality VTE Deep Vein Thrombosis/Pulmonary Embolism Present on Admission: No
[2024-05-23] MEDS: FERROUS SULFATE 325 MG TABLET PO (09:08)
--- NOTE | 2024-05-23 09:40 | DI.RAD.S_ITS ---
PROCEDURE: XR CHEST 1V INDICATIONS: Dyspnea TECHNIQUE: One view of the chest was acquired. COMPARISON: [facility], CR, XR CHEST FOR PICC 1V, 05/22/2024, 14:08. FINDINGS: Surgical changes and devices: Mediastinal clips. Left arm PICC line. Lungs and pleura: Submaximal inspiration with patchy bibasilar atelectasis. No pleural effusions or pneumothorax. Mediastinum: Mediastinal contours appear normal. Heart size is normal. Bones and chest wall: No suspicious bony lesions. Overlying soft tissues appear unremarkable. IMPRESSION: Submaximal inspiration with patchy bibasilar atelectasis. Dictated by: Isael Delcid M.D. on 05/23/2024 at 9:52 Approved by: Isael Delcid M.D. on 05/23/2024 at 9:56
[2024-05-23] MEDS: OXYBUTYNIN 5 MG ER TAB 10 MG PO (09:43)
[2024-05-23 10:26] LABS: Hematocrit 27.7 % (41-53); Hemoglobin 9.5 g/dL (13.5-17.5); Mean Corpuscular HGB Conc 34.3 % (30-36); Mean Corpuscular Hemoglobin 31.5 PG (26-34); Platelet Count 114 X10^3/uL (150-400); Red Blood Cell Count 3.01 X10^6/uL (4.5-5.9); Red Cell Distribution Width 16.2 % (11.6-14.8); White Blood Cell Count 8.8 X10^3/uL (4.5-11.0)
[2024-05-23 10:38] LABS: Alanine Aminotransferase 19 IU/L (<50); Albumin 2.6 g/dL (3.5-5.0); Albumin Globulin Ratio 0.9 (1.0-2.8); Alkaline Phosphatase 78 U/L (38-126); Aspartate Aminotransferase 40 IU/L (17-59); BUN Creatinine Ratio 20.2 (6-22); Bilirubin Total 2.1 mg/dL (0.2-1.3); Blood Urea Nitrogen 23 mg/dL (9-20); Calcium 8.6 mg/dL (8.4-10.2); Carbon Dioxide 18 mmol/L (22-32); Chloride 114 mmol/L (98-107); Estimated Glomerular Filt Rate > 60 mL/min (>60); Globulin 2.8 g/dL (1.7-4.1); Glucose 168 mg/dL (80-110); HEMOLYSIS < 15 (0-50); Potassium 3.7 mmol/L (3.4-5.1); Sodium 139 mmol/L (137-145); Total Protein 5.4 g/dL (6.3-8.2)
[2024-05-23] MEDS: CEFEPIME 2 GM in SODIUM CHLORIDE 0.9% 100 ML IV ×2 (10:43→22:49)
[2024-05-23] MEDS: HYDROCODONE/ACET 5/325 TABLET 1 TAB PO ×2 (10:43→17:05)
[2024-05-23] MEDS: SODIUM CHLORIDE 0.9% 1,000 ML 75 ML IV ×2 (10:54→23:20)
--- NOTE | 2024-05-23 11:01 | DIET.CONS ---
Dietary Consultation Note Admission Date: 05/21/2024 01:06 Assessment: 74 y M admitted for sepsis with acute encephalopathy, JOVI. Dietitian consulted for limited oral intake and skin breakdown. PMH of DM2. Attempted visit with patient. Besides confirming appetite has been decreased, unsure/unable to answer further assessment questions at this time. Patient admitted in Apr and reported to have had unintentional weight loss since Mar when he was admitted to [facility]. Per EMR review, has had continued weight loss since. NFPE postponed Ht: 175.26 cm Wt: 103 kg BMI: 33.5 UBW: 119.55 kg in mid-Mar, 110 kg on 05/17/24 (-14% weight loss in 2 months, severe) Last BM: 05/21/24 (05/21/24 19:00) MNA: 13 Kevin Score: 12 Diet: 05/21/24 Breakfast Heart Healthy Diet Diet Modifications: Nutrition Percent Meal Consumed 75% 05/23/24 09:29 Percent Meal Consumed refused dinner 05/22/24 18:00 Percent Meal Consumed patient refused dinner 05/21/24 18:00 Labs: RBC 3.01 X10^6/uL (4.5-5.9) L 05/23/24 10:19 Hgb 9.5 g/dL (13.5-17.5) L 05/23/24 10:19 Hct 27.7 % (41-53) L 05/23/24 10:19 Creatinine 1.14 mg/dL (0.66-1.25) 05/23/24 10:19 Lactate 2.3 mmol/L (0.7-2.1) H 05/21/24 09:08 Nutrition Diagnosis: Unintentional weight loss r/t inadequate oral intakes aeb 14% loss in 2 months, severe Interventions: ONS Enlive TID, coordinated for easy to eat foods, will consider fortification of foods with additional kcals/protein based on Enlive tolerance and PO intakes EER: 1500 kcals (14 kcals/kg per ASPEN sepsis guidelines) 140 g protein (2g/kg of IBW per ASPEN guidelines) Monitoring/Evaluations: PO intakes, ONS tolerance Electronically Signed by: Whit Foreman 05/23/24 11:01 Clinical Dietitian [address] [address]
--- NOTE | 2024-05-23 11:42 | PT-IP ANOTE ---
PT consult received. PT reviewed chart and spoke with ICU nurse. Nurse recommends wait a day for skilled PT assessment given pt with some decreased urine output, mild fever and concern for hypotension with getting up. PT will certainly comply with ICU nursing recommendation and will con't skilled PT assessment efforts next date.
[2024-05-24] VITALS (57 sets, daily range): BP systolic 102–141; BP diastolic 55–85; PULSE 84–113; RESP 18–69; TEMP 36.7–38.8; O2SAT 92–97
[2024-05-24 05:29] LABS: Add Manual Diff / Slide Review NO; Basophils Absolute Auto 0 /uL (0-100); Basophils Percent Auto 0.5 % (0-2); Eosinophils Absolute Auto 100 /uL (0-450); Eosinophils Percent Auto 1.7 % (2-4); Hematocrit 27.1 % (41-53); Hemoglobin 9.3 g/dL (13.5-17.5); Lymphocytes Absolute Auto 800 /uL (1100-4500); Lymphocytes Percent Auto 12.3 % (25-40); Mean Corpuscular HGB Conc 34.5 % (30-36); Mean Corpuscular Hemoglobin 31.3 PG (26-34); Mean Corpuscular Volume 90.9 fL (80-100); Monocytes Absolute Auto 400 /uL (0-900); Monocytes Percent Auto 6.5 % (3-14); Neutrophils Absolute Auto 5100 /uL (1500-7000); Platelet Count 119 X10^3/uL (150-400); Red Blood Cell Count 2.98 X10^6/uL (4.5-5.9); Red Cell Distribution Width 16.4 % (11.6-14.8); White Blood Cell Count 6.5 X10^3/uL (4.5-11.0)
[2024-05-24] MEDS: LEVOTHYROXINE 100 MCG TABLET PO (05:45)
[2024-05-24] MEDS: PANTOPRAZOLE DR 20 MG TABLET PO (05:45)
[2024-05-24 05:54] LABS: BUN Creatinine Ratio 20.6 (6-22); Blood Urea Nitrogen 21 mg/dL (9-20); Calcium 9.2 mg/dL (8.4-10.2); Carbon Dioxide 21 mmol/L (22-32); Chloride 115 mmol/L (98-107); Estimated Glomerular Filt Rate > 60 mL/min (>60); Glucose 128 mg/dL (80-110); HEMOLYSIS < 15 (0-50); Magnesium 1.8 mg/dL (1.6-2.3); Potassium 3.7 mmol/L (3.4-5.1); Sodium 142 mmol/L (137-145)
[2024-05-24] MEDS: CLOPIDOGREL 75 MG TABLET PO (08:06)
[2024-05-24] MEDS: EZETIMIBE 10 MG TABLET PO (08:06)
[2024-05-24] MEDS: ATORVASTATIN 20 MG TABLET 80 MG PO (08:06)
[2024-05-24] MEDS: SUCRALFATE 1 GM/10 ML ORAL SUSP PO ×4 (08:06→21:11)
[2024-05-24] MEDS: OXYBUTYNIN 5 MG ER TAB 10 MG PO (08:07)
[2024-05-24] MEDS: DULOXETINE 30 MG CAPSULE PO (08:07)
[2024-05-24] MEDS: CARBIDOPA-LEVODOPA 25/100 TABLET 1 EACH PO ×3 (08:07→21:10)
[2024-05-24] MEDS: TAMSULOSIN 0.4 MG CAPSULE PO (08:07)
[2024-05-24] MEDS: CHOLECALCIFEROL (VITAMIN D3) 1,000 UNIT TABLET 1000 UNIT PO (08:07)
[2024-05-24] MEDS: buPROPion XL 150 MG TAB PO (08:07)
[2024-05-24] MEDS: ASPIRIN 81 MG CHEW TAB PO (08:07)
[2024-05-24] MEDS: ISOSORBIDE MONONITRATE ER 30 MG TABLET PO (08:07)
[2024-05-24] MEDS: DOXYCYCLINE 100 MG in SODIUM CHLORIDE 0.9% 100 ML IV ×2 (08:08→21:10)
--- NOTE | 2024-05-24 09:03 | PM.PN.1 ---
Subjective Subjective Interval history: Summary: Overnight patient became very drowsy, head CT and MRI unremarkable, was tachycardic and hypotensive improved with IV fluids. Improved thus far with fluids, but transferred to the ICU in case of development of shock. He improved on May 23. He did not require pressors in his blood pressures normalized. He was not hypoxemic. He was transferred out of the ICU. Cultures remained negative. S: He states he was feeling better today. He denies any abdominal pain. Exam Vital Signs (past 8 hours): - 05/24/24 01:30 05/24/24 01:30 05/24/24 02:00 Temperature 101.8 F H 101.8 F H Pulse Rate 96 H 97 H Respiratory Rate 25 H 25 H Blood Pressure 121/56 L Pulse Oximetry 95 94 Oxygen Delivery Method 05/24/24 02:00 05/24/24 02:30 05/24/24 02:31 Temperature 101.8 F H 101.8 F H Pulse Rate 99 H 99 H Respiratory Rate 25 H 24 Blood Pressure 120/59 L Pulse Oximetry 96 95 Oxygen Delivery Method 05/24/24 02:31 05/24/24 03:00 05/24/24 03:00 Temperature 101.8 F H Pulse Rate 98 H Respiratory Rate 26 H Blood Pressure 141/85 H 123/67 Pulse Oximetry 95 Oxygen Delivery Method 05/24/24 03:30 05/24/24 03:30 05/24/24 04:00 Temperature 101.8 F H 98.0 F Pulse Rate 97 H Respiratory Rate 39 H Blood Pressure 121/67 128/63 Pulse Oximetry 95 Oxygen Delivery Method 05/24/24 04:00 05/24/24 04:00 05/24/24 04:30 Temperature 101.7 F H Pulse Rate 95 H Respiratory Rate 34 H Blood Pressure 131/60 Pulse Oximetry 95 Oxygen Delivery Method Nasal Cannula 05/24/24 04:30 05/24/24 05:00 05/24/24 05:00 Temperature 101.7 F H 101.5 F H Pulse Rate 99 H 96 H Respiratory Rate 37 H 27 H Blood Pressure 139/77 Pulse Oximetry 95 93 Oxygen Delivery Method 05/24/24 05:30 05/24/24 05:30 05/24/24 06:00 Temperature 101.5 F H Pulse Rate 94 H Respiratory Rate 42 H Blood Pressure 136/56 L 118/56 L Pulse Oximetry 94 Oxygen Delivery Method 05/24/24 06:00 05/24/24 06:30 05/24/24 06:30 Temperature 101.3 F H 101.1 F H Pulse Rate 93 H 94 H Respiratory Rate 41 H 27 H Blood Pressure 129/60 Pulse Oximetry 93 94 Oxygen Delivery Method 05/24/24 07:00 05/24/24 07:00 05/24/24 07:30 Temperature 101.1 F H 101.1 F H Pulse Rate 92 H 95 H Respiratory Rate 33 H 26 H Blood Pressure 127/60 Pulse Oximetry 95 96 Oxygen Delivery Method 05/24/24 08:00 Temperature 100.9 F H Pulse Rate 93 H Respiratory Rate 37 H Blood Pressure Pulse Oximetry 96 Oxygen Delivery Method Oxygen Delivery Method Nasal Cannula Oxygen Flow Rate 2 Narrative Exam Narrative: NAD, alert and oriented. Fluent speech. Flat affect. Lungs are clear, normal rate and effort. Heart is regular, no murmur gallop or rub. Abdomen is soft, non distended. Extremities are free of edema. Objective Labs 05/24/24 05:00 05/24/24 05:00 Labs: Laboratory Results - last 24 hr 05/23/24 05/24/24 10:19 05:00 WBC 8.8 6.5 RBC 3.01 L 2.98 L Hgb 9.5 L 9.3 L Hct 27.7 L 27.1 L MCV 92.0 90.9 MCH 31.5 31.3 MCHC 34.3 34.5 RDW 16.2 H 16.4 H Plt Count 114 L 119 L Neut % (Auto) 79.0 H Lymph % (Auto) 12.3 L [place] % (Auto) 6.5 Eos % (Auto) 1.7 L Baso % (Auto) 0.5 Neut # (Auto) 5100 Lymph # (Auto) 800 L [place] # (Auto) 400 Eos # (Auto) 100 Baso # (Auto) 0 Sodium 139 142 Potassium 3.7 3.7 Chloride 114 H 115 H Carbon Dioxide 18 L 21 L BUN 23 H 21 H Creatinine 1.14 1.02 Estimated GFR > 60 > 60 BUN/Creatinine Ratio 20.2 20.6 Glucose 168 H 128 H Calcium 8.6 9.2 Magnesium 1.8 Total Bilirubin 2.1 H AST 40 ALT 19 Alkaline Phosphatase 78 Total Protein 5.4 L Albumin 2.6 L Globulin 2.8 Albumin/Globulin Ratio 0.9 L [facility] Social History household members: none Smoking Status: Never smoker Assessment & Plan Assessment & Plan narrative: Sepsis with acute septic encephalopathy, hypotension, JOVI, elevated bilirubin, acute respiratory failure with hypoxia. Resolved. -cultures remained negative. CAD, stable. Aspirin, it appears plavix was also re-added since last admission as an outpatient. Hg is elevated compared to prior values. continue statin, metoprolol, nitroglycerin as needed Hypothyroidism, stable. Restart levothyroxine and check lipids. Hypertension, stable. Hold home lisinopril, resumed home metoprolol. GERD with recent GI bleeding, stable. Continue PO pantoprazole 20 mg. Parkinson's disease, stable. Restart home sinemet, started here last admission. BPH, stable. Continue flomax. Diabetes mellitus type II, diet controlled, stable. Restart Jardiance if patient able to bring in, and monitor blood sugar ACHS. ADA diet. Depression, stable. Restarted bupropion PLAN: -expand antibiotic coverage by stopping ceftriaxone and starting cefepime. -monitor mental status. Improved. -follow cultures. Urine does have many bacteria in it. -monitor hemoglobin. -monitor blood pressure, left arm PICC in place. Has not needed pressors but did get 2 fluid boluses overnight. REJI: Returned to SNF around 05/26. Time-Based Coding :: [TOTAL MINUTES] spent with patient and on the chart (including review of chart, obtaining history, exam, reviewing outside data, placing orders, documenting exam and treatment plan, and counseling patient) on [DATE]. Quality VTE Deep Vein Thrombosis/Pulmonary Embolism Present on Admission: No
--- NOTE | 2024-05-24 10:15 | PT.IIE ---
Current Diagnoses Urinary tract infection, site not specified (05/21/24) Physical Therapy Inpatient Evaluation/Re-Eval M1 PT/OT-IP Prior Functional Status Start: 05/23/24 08:13 Freq: NEEDED Status: Active Protocol: Document 05/24/24 10:15 AB (Rec: 05/24/24 13:45 AB [id number]) Medical Review Prior Functional Status Medical History Reviewed Yes Communication soft voice and ENTERPRISE; inconsistent with responding Mobility and Gait pt has been hospitalized from 04/18/24 to 04/29/24 for GI bleed . pt was d/c to SNF afterwards but now back to the hospital. pt unable to provide much info . home setup info take from EMR previous admission. pt stated that he was independent with ambulation. Social History Household Members spouse,none Living Arrangements House Number of Floors (Floors) One Floor Number of Stairs To Enter/Railing? 2 steps R rail ascending to enter the house Home Environment Standard Height Toilet,Walk in Shower Home Equipment Front Wheel Walker,Shower Seat with Backrest,Grab Bars Near Toilet,Grab Bars In Shower M2 PT-IP Current Condition Start: 05/23/24 08:13 Freq: NEEDED Status: Active Protocol: Document 05/24/24 10:15 AB (Rec: 05/24/24 13:45 AB [id number]) Physical Therapy Current Condition Current Condition Evaluation Date 05/24/24 Treatment Diagnosis sepsis; UTI; difficulty in walking Onset Date 05/21/24 M3 PT-IP Subjective Start: 05/23/24 08:13 Freq: NEEDED Status: Active Protocol: Document 05/24/24 10:15 AB (Rec: 05/24/24 13:45 AB [id number]) Subjective Physical Therapy Visit Type Type Initial Evaluation Visit Start Time 10:15 Visit Stop Time 11:10 Number of HR ADMINISTRATIVE ASSISTANT Visits 0 Physical Therapy Visit Comments Patient Comments agreed to get up M4 PT-IP Mobility and Gait Start: 05/23/24 08:13 Freq: NEEDED Status: Active Protocol: Document 05/24/24 10:15 AB (Rec: 05/24/24 13:45 AB [id number]) PT-Bed Mobility Assessment Supine to Sit Supine to Sit Maximum Assistance,Total Assistance,2 Person Assistance ,Head of Bed Elevated,Bedrails Scooting Scooting to Edge of Bed Dependent PT-Transfer Assessment Sit to and From Stand Sit to and from Stand Maximum Assistance,2 Person Assistance,Use of Upper Extremities Equipment Transfer Assistive Device Mechanical Lift Orthotic/Prosthetic Devices or Brace: No Transfers Transfer Destination Chair Transfer Technique Mechanical Lift Transfer Ability Level of Assist Total Assistance,2 Person Assistance,Use of Upper Extremities Comments Mobility Comments pt in bed. pt keeps his eyes closed but able to respond to questions but inconsistent and needing repetitions. pt agreed to get up. BP: 108/58 O2 sat: 94% with O2 on. pt completed supine to sit max Ax 2 to total A x 2 and max cues . HOB elevated. pt requiring max A x 1-2 for sitting balance on EOB with increase posterior trunk lean. pt sat on EOB for a few minutes. BP: 103/58. no c/o dizziness. completed sit to stand max A x 2 and max cues. max A x 2 using FWW for standing balance . pt sat back on EOB. NACs in room to assist. assisted pt on chair using mechanical lift . positioned pt on the chair. call light and table placed within reach. Left pt with NAC . Gait Assessment Comments Gait Comments unable at this time PT-Balance Assessment Sitting Balance and Reactions Static Sitting Balance Ability Poor Dynamic Sitting Balance Ability Poor Standing Balance and Reactions Static Standing Balance Ability Poor Dynamic Standing Balance Ability Poor Device Used FWW M5 PT-IP Objective Assessments Start: 05/23/24 08:13 Freq: NEEDED Status: Active Protocol: Document 05/24/24 10:15 AB (Rec: 05/24/24 13:45 AB [id number]) Orientation Orientation/Cognition Level of Alertness Confusional State Orientation Name Language Function Ability Hard of Hearing Safety Awareness Decreased Safety Awareness Memory Description Short Term Impaired Gross Range of Motion Lower Extremity ROM Assessment Within Functional Limits Strength Lower Extremity Strength Assessment Bilaterally Impaired Hip 3-/5 Knee 3+/5 Muscle Tone Muscle Tone WNL Yes M6 PT-IP Treatment Start: 05/23/24 08:13 Freq: NEEDED Status: Active Protocol: Document 05/24/24 10:15 AB (Rec: 05/24/24 13:45 AB [id number]) Physical Therapy Treatment Education Education Provided Safety M7 PT-IP Assessment and Plan Start: 05/23/24 08:13 Freq: NEEDED Status: Active Protocol: Document 05/24/24 10:15 AB (Rec: 05/24/24 13:45 AB [id number]) PT Summary Assessment and Plan Potential Rehabilitation Potential Fair Status of Condition at Evaluation Unstable Summary Impairments Pain,ROM,Strength,Balance, Coordination,Sensation,Tone, Cognition,Bed Mobility, Transfers,Gait,Activity Tolerance Assessment Summary pt is a 74 y/o M who was just admitted 04/18-04/29/24 to the hospital for GI bleed. pt was discharged to SNF afterwards but not back to the hospital for sepsis, UTI. pt requiring max Ax 2 to total Ax 2with mobilities. Recommending mechanical lift transfers with nursing staff at this time. pt will benefit from SNF rehab to improve overall strength and function. Goals Bed Mobility Goal Minimal Assistance Transfer Goal Minimal Assistance,Front Wheeled Walker Gait Goal Minimal Assistance,Front Wheel Walker Gait Distance 20 Other Goals improve bed mobility, transfers, ambulation SBA using FWW 50 ft Days to Meet Goals 10 Frequency of Treatment Frequency Of Treatment Once a Day Treatment Plan Physical Therapy Treatment Plan Bed Mobility Training,Transfer Training,Gait Training, Therapeutic Exercise,Balance Retraining,Discharge Planning, Hot or Cold Pack,Neuromuscular Re-ed,Coordination Retraining ,Manual Therapy Precautions Other Precautions falls; contact precautions Recommendations To Nursing Amount of Assist Needed Mechanical Lift Discharge Recommendations PT Discharge Recommendations SNF Rehab Transportation Needs at Discharge Wheelchair/Cabulance,Stretcher /Ambulance
[2024-05-24] MEDS: RANOLAZINE 500 MG TAB.ER.12H PO ×2 (11:38→21:11)
[2024-05-24] MEDS: CEFEPIME 2 GM in SODIUM CHLORIDE 0.9% 100 ML IV ×2 (11:39→23:19)
[2024-05-24] MEDS: SODIUM CHLORIDE 0.9% 1,000 ML 75 ML IV (17:00)
[2024-05-24] MEDS: ACETAMINOPHEN 325 MG TABLET 650 MG PO (21:19)
[2024-05-25] VITALS (42 sets, daily range): BP systolic 92–128; BP diastolic 54–69; PULSE 77–104; RESP 15–40; TEMP 36.9–37.8; O2SAT 91–97
[2024-05-25] MEDS: HYDROCODONE/ACET 5/325 TABLET 1 TAB PO (03:00)
[2024-05-25] MEDS: SODIUM CHLORIDE 0.9% 1,000 ML 75 ML IV ×2 (03:02→18:20)
[2024-05-25 05:07] LABS: Add Manual Diff / Slide Review NO; Basophils Absolute Auto 0 /uL (0-100); Basophils Percent Auto 0.2 % (0-2); Eosinophils Absolute Auto 200 /uL (0-450); Eosinophils Percent Auto 4.5 % (2-4); Hematocrit 25.9 % (41-53); Hemoglobin 8.8 g/dL (13.5-17.5); Lymphocytes Absolute Auto 800 /uL (1100-4500); Lymphocytes Percent Auto 15.4 % (25-40); Mean Corpuscular HGB Conc 34.1 % (30-36); Mean Corpuscular Hemoglobin 31.3 PG (26-34); Mean Corpuscular Volume 91.7 fL (80-100); Monocytes Absolute Auto 500 /uL (0-900); Monocytes Percent Auto 8.8 % (3-14); Neutrophils Absolute Auto 3900 /uL (1500-7000); Neutrophils Percent Auto 71.1 % (50-75); Platelet Count 115 X10^3/uL (150-400); Red Blood Cell Count 2.82 X10^6/uL (4.5-5.9); Red Cell Distribution Width 16.3 % (11.6-14.8); White Blood Cell Count 5.5 X10^3/uL (4.5-11.0)
[2024-05-25 05:23] LABS: Lactate (Lactic Acid) 1.2 mmol/L (0.7-2.1)
[2024-05-25 05:25] LABS: Alanine Aminotransferase 15 IU/L (<50); Albumin 2.5 g/dL (3.5-5.0); Albumin Globulin Ratio 0.9 (1.0-2.8); Alkaline Phosphatase 120 U/L (38-126); Aspartate Aminotransferase 41 IU/L (17-59); Bilirubin Total 1.4 mg/dL (0.2-1.3); Blood Urea Nitrogen 23 mg/dL (9-20); Calcium 9.5 mg/dL (8.4-10.2); Carbon Dioxide 21 mmol/L (22-32); Chloride 116 mmol/L (98-107); Estimated Glomerular Filt Rate > 60 mL/min (>60); Globulin 2.8 g/dL (1.7-4.1); Glucose 110 mg/dL (80-110); HEMOLYSIS < 15 (0-50); Potassium 3.7 mmol/L (3.4-5.1); Sodium 143 mmol/L (137-145); Total Protein 5.3 g/dL (6.3-8.2)
[2024-05-25] MEDS: PANTOPRAZOLE DR 20 MG TABLET PO (06:21)
[2024-05-25] MEDS: LEVOTHYROXINE 100 MCG TABLET PO (06:21)
--- NOTE | 2024-05-25 07:43 | PM.PN.1 ---
Subjective Subjective Interval history: Summary: Overnight patient became very drowsy, head CT and MRI unremarkable, was tachycardic and hypotensive improved with IV fluids. Improved thus far with fluids, but transferred to the ICU in case of development of shock. He improved on May 23. He did not require pressors in his blood pressures normalized. He was not hypoxemic. He was transferred out of the ICU. Cultures remained negative. S: He feels better today, no nausea. No pain. He was still somewhat confused. Exam Vital Signs (past 8 hours): - 05/25/24 00:00 05/25/24 00:00 05/25/24 00:30 Temperature 99.3 F 99.3 F Pulse Rate 84 82 Respiratory Rate 18 19 Blood Pressure 109/58 L Pulse Oximetry 92 93 Oxygen Flow Rate 05/25/24 01:00 05/25/24 01:00 05/25/24 01:30 Temperature 99.1 F 99.0 F Pulse Rate 82 80 Respiratory Rate 18 18 Blood Pressure 108/55 L Pulse Oximetry 92 91 Oxygen Flow Rate 05/25/24 02:00 05/25/24 02:00 05/25/24 02:30 Temperature 99.0 F 98.8 F Pulse Rate 80 80 Respiratory Rate 19 19 Blood Pressure 108/56 L Pulse Oximetry 93 93 Oxygen Flow Rate 05/25/24 03:00 05/25/24 03:00 05/25/24 03:30 Temperature 98.8 F 99.0 F Pulse Rate 80 85 Respiratory Rate 17 23 Blood Pressure 120/58 L Pulse Oximetry 93 93 Oxygen Flow Rate 05/25/24 04:00 05/25/24 04:00 05/25/24 04:30 Temperature 99.0 F 99.0 F Pulse Rate 80 78 Respiratory Rate 16 15 Blood Pressure 116/59 L Pulse Oximetry 94 95 Oxygen Flow Rate 0 05/25/24 05:00 05/25/24 05:00 05/25/24 05:30 Temperature 98.8 F 98.6 F Pulse Rate 78 77 Respiratory Rate 15 15 Blood Pressure 107/56 L Pulse Oximetry 95 95 Oxygen Flow Rate 0 0 05/25/24 06:00 05/25/24 06:00 05/25/24 06:30 Temperature 98.6 F 98.6 F Pulse Rate 77 82 Respiratory Rate 17 22 Blood Pressure 116/56 L Pulse Oximetry 95 94 Oxygen Flow Rate 0 0 Oxygen Delivery Method Room Air Oxygen Flow Rate 0 Narrative Exam Narrative: NAD, alert and oriented. Fluent speech. Flat affect. Lungs are clear, normal rate and effort. Heart is regular, no murmur gallop or rub. Abdomen is soft, non distended. Extremities are free of edema. Objective Labs 05/25/24 04:35 05/25/24 04:35 Labs: Laboratory Results - last 24 hr 05/25/24 04:35 WBC 5.5 RBC 2.82 L Hgb 8.8 L Hct 25.9 L MCV 91.7 MCH 31.3 MCHC 34.1 RDW 16.3 H Plt Count 115 L Neut % (Auto) 71.1 Lymph % (Auto) 15.4 L [place] % (Auto) 8.8 Eos % (Auto) 4.5 H Baso % (Auto) 0.2 Neut # (Auto) 3900 Lymph # (Auto) 800 L [place] # (Auto) 500 Eos # (Auto) 200 Baso # (Auto) 0 Sodium 143 Potassium 3.7 Chloride 116 H Carbon Dioxide 21 L BUN 23 H Creatinine 1.00 Estimated GFR > 60 BUN/Creatinine Ratio 23.0 H Glucose 110 Lactate 1.2 Calcium 9.5 Total Bilirubin 1.4 H AST 41 ALT 15 Alkaline Phosphatase 120 Total Protein 5.3 L Albumin 2.5 L Globulin 2.8 Albumin/Globulin Ratio 0.9 L PFSH Social History household members: spouse and none Smoking Status: Never smoker Assessment & Plan Assessment & Plan narrative: 1. Sepsis with acute septic encephalopathy, hypotension, JOVI, elevated bilirubin, acute respiratory failure with hypoxia. Resolved. -cultures remained negative. Fever resolved. 2. CAD, stable. Aspirin, it appears plavix was also re-added since last admission as an outpatient. Hg is elevated compared to prior values. continue statin, metoprolol, nitroglycerin as needed 3. Hypothyroidism, stable. Restart levothyroxine and check lipids. 4. Hypertension, stable. Hold home lisinopril, resumed home metoprolol. 5. GERD with recent GI bleeding, stable. Continue PO pantoprazole 20 mg. 6. Parkinson's disease, stable. Restart home sinemet, started here last admission. 7. BPH, stable. Continue flomax. 8. Diabetes mellitus type II, diet controlled, stable. Restart Jardiance if patient able to bring in, and monitor blood sugar ACHS. ADA diet. 9. Depression, stable. Restarted bupropion PLAN: -Continue cefepime. Anticipate a 7 days course of antibiotics (maybe PO). -monitor mental status. Improved. -follow cultures. Urine does have many bacteria in it. -monitor hemoglobin. -monitor blood pressure, left arm PICC in place. Has not needed pressors but did get 2 fluid boluses overnight. REJI: Home with HH around 05/26. Time-Based Coding :: [TOTAL MINUTES] spent with patient and on the chart (including review of chart, obtaining history, exam, reviewing outside data, placing orders, documenting exam and treatment plan, and counseling patient) on [DATE]. Quality VTE Deep Vein Thrombosis/Pulmonary Embolism Present on Admission: No
[2024-05-25] MEDS: ASPIRIN 81 MG CHEW TAB PO (08:24)
[2024-05-25] MEDS: SODIUM CHLORIDE 0.9% FLUSH 10 ML IV ×2 (08:24→21:33)
[2024-05-25] MEDS: DULOXETINE 30 MG CAPSULE PO (08:24)
[2024-05-25] MEDS: TAMSULOSIN 0.4 MG CAPSULE PO (08:24)
[2024-05-25] MEDS: CLOPIDOGREL 75 MG TABLET PO (08:24)
[2024-05-25] MEDS: ATORVASTATIN 20 MG TABLET 80 MG PO (08:24)
[2024-05-25] MEDS: EZETIMIBE 10 MG TABLET PO (08:24)
[2024-05-25] MEDS: CHOLECALCIFEROL (VITAMIN D3) 1,000 UNIT TABLET 1000 UNIT PO (08:25)
[2024-05-25] MEDS: CARBIDOPA-LEVODOPA 25/100 TABLET 1 EACH PO ×3 (08:25→21:33)
[2024-05-25] MEDS: RANOLAZINE 500 MG TAB.ER.12H PO ×2 (08:25→21:33)
[2024-05-25] MEDS: OXYBUTYNIN 5 MG ER TAB 10 MG PO (08:25)
[2024-05-25] MEDS: buPROPion XL 150 MG TAB PO (08:25)
[2024-05-25] MEDS: ISOSORBIDE MONONITRATE ER 30 MG TABLET PO (08:25)
[2024-05-25] MEDS: DOXYCYCLINE 100 MG in SODIUM CHLORIDE 0.9% 100 ML IV ×2 (08:26→21:32)
[2024-05-25] MEDS: SUCRALFATE 1 GM/10 ML ORAL SUSP PO ×4 (08:27→21:33)
[2024-05-25] MEDS: FERROUS SULFATE 325 MG TABLET PO (08:27)
[2024-05-25] MEDS: CEFEPIME 2 GM in SODIUM CHLORIDE 0.9% 100 ML IV ×2 (10:50→23:59)
[2024-05-25 13:50] LABS: Hemoglobin A1C% w Est Avg Glu 5.1 % (4.0-6.0)
--- NOTE | 2024-05-25 14:10 | PT.IPTN ---
Current Diagnoses Urinary tract infection, site not specified (05/21/24) Physical Therapy Treatment Note M2 PT-IP Current Condition Start: 05/23/24 08:13 Freq: NEEDED Status: Active Protocol: Document 05/24/24 10:15 AB (Rec: 05/24/24 13:45 AB [id number]) Physical Therapy Current Condition Current Condition Evaluation Date 05/24/24 Treatment Diagnosis sepsis; UTI; difficulty in walking Onset Date 05/21/24 M3 PT-IP Subjective Start: 05/23/24 08:13 Freq: NEEDED Status: Active Protocol: Document 05/25/24 14:10 AB (Rec: 05/25/24 15:47 AB [id number]) Subjective Physical Therapy Visit Type Type Treatment Note Visit Start Time 14:10 Visit Stop Time 14:50 Number of RV SERVICER Visits 0 Physical Therapy Visit Comments Patient Comments agreeable to do PT M4 PT-IP Mobility and Gait Start: 05/23/24 08:13 Freq: NEEDED Status: Active Protocol: Document 05/25/24 14:10 AB (Rec: 05/25/24 15:47 AB [id number]) PT-Bed Mobility Assessment Supine to Sit Supine to Sit Maximum Assistance,Total Assistance,2 Person Assistance ,Head of Bed Elevated,Bedrails Scooting Scooting to Edge of Bed Dependent PT-Transfer Assessment Sit to and From Stand Sit to and from Stand Maximum Assistance,2 Person Assistance,Use of Upper Extremities Equipment Transfer Assistive Device Mechanical Lift Transfers Transfer Destination Chair Transfer Technique Mechanical Lift Transfer Ability Level of Assist Total Assistance,2 Person Assistance Comments Mobility Comments pt in bed. spouse in room. spouse stepped out of the room before start of PT. BP: 104/ 58. O2 sat 94%. pt completed supine to sit with HOB elevated and use of bed rail max A x 2 to total A x 2 and max cues. pt with increase retrolean and lateral leaning to the L. pt sat on EOB for a few minutes. cued for midline positioning and to correct side leaning requiring max Ax 1-2 for positioning. pt completed sit to stand max Ax 2 and max cues x 3 attempts. pt needs BLE blocked to prevent from sliding forward. pt leaning against bed. tolerated ~ 10 sec of standing . pt unable to get to upright position on 3rd attempt of standing. positioned sling on pt to transfer to chair. pt transferred to chair using mechanical lift. proper chair positioning completed. call light and table placed within reach. M5 PT-IP Objective Assessments Start: 05/23/24 08:13 Freq: NEEDED Status: Active Protocol: Document 05/24/24 10:15 AB (Rec: 05/24/24 13:45 AB [id number]) Orientation Orientation/Cognition Level of Alertness Confusional State Orientation Name Language Function Ability Hard of Hearing Safety Awareness Decreased Safety Awareness Memory Description Short Term Impaired Gross Range of Motion Lower Extremity ROM Assessment Within Functional Limits Strength Lower Extremity Strength Assessment Bilaterally Impaired Hip 3-/5 Knee 3+/5 Muscle Tone Muscle Tone WNL Yes M6 PT-IP Treatment Start: 05/23/24 08:13 Freq: NEEDED Status: Active Protocol: Document 05/25/24 14:10 AB (Rec: 05/25/24 15:47 AB [id number]) Physical Therapy Treatment Education Education Provided Safety M7 PT-IP Assessment and Plan Start: 05/23/24 08:13 Freq: NEEDED Status: Active Protocol: Document 05/25/24 14:10 AB (Rec: 05/25/24 15:47 AB [id number]) PT Summary Assessment and Plan Potential Rehabilitation Potential Fair Summary Impairments Pain,ROM,Strength,Balance, Coordination,Sensation,Tone, Cognition,Bed Mobility, Transfers,Gait,Activity Tolerance Progress Towards Goals Slow Progress due to Medical Issues,Slow Progress - Other Assessment Summary pt continues to require max Ax 2 to total A x2 with mobility. will need mechanical lift transfers at this time. pt will benefit from SNF Rehab to improve mobility level. Goals Bed Mobility Goal Minimal Assistance Transfer Goal Minimal Assistance,Front Wheeled Walker Gait Goal Minimal Assistance,Front Wheel Walker Gait Distance 20 Other Goals improve bed mobility, transfers, ambulation SBA using FWW 50 ft Days to Meet Goals 10 Frequency of Treatment Frequency Of Treatment Once a Day Treatment Plan Physical Therapy Treatment Plan Bed Mobility Training,Transfer Training,Gait Training, Therapeutic Exercise,Balance Retraining,Discharge Planning, Hot or Cold Pack,Neuromuscular Re-ed,Coordination Retraining ,Manual Therapy Precautions Other Precautions falls; contact precautions Recommendations To Nursing Amount of Assist Needed Mechanical Lift Discharge Recommendations PT Discharge Recommendations SNF Rehab Transportation Needs at Discharge Wheelchair/Cabulance,Stretcher /Ambulance
--- NOTE | 2024-05-25 16:06 | CM.DPC ---
DCP SNF vs [facility] Per MD, pt making slow progress but not yet stable for discharge and possible d/c in 2 days if medically stable. Per PT, pt currently max Ax2 and recommending lift for nursing staff and SNF at d/c. Per , spouse hopeful for pt to d/c back to [facility] with HH but would be agreeable to SNF if needed. SW made new referral to [facility] as pt recently there before moving into [facility] and they will need to determine their male bed availability to confirm if they can accept if SNF needed. Plan: SW to fax updated clinicals to [facility] tomorrow [place] for review and discuss once admissions/admin staff back Monday to determine if they feel they can meet his needs or SNF prior to return. IF SNF, [facility] would be needed. MARYCRUZ Cop[place]
[2024-05-25] MEDS: INSULIN LISPRO 100 UNIT/ML 3ML VIAL SUBCUT (17:00)
[2024-05-26] VITALS (46 sets, daily range): BP systolic 103–132; BP diastolic 56–69; PULSE 71–86; RESP 15–44; TEMP 36.9–37.4; O2SAT 90–95
[2024-05-26] MEDS: MELATONIN 3 MG TABLET 9 MG PO ×2 (00:25→20:18)
[2024-05-26] MEDS: HYDROCODONE/ACET 5/325 TABLET 1 TAB PO ×2 (00:39→06:17)
[2024-05-26 05:25] LABS: Add Manual Diff / Slide Review NO; Basophils Absolute Auto 100 /uL (0-100); Eosinophils Absolute Auto 200 /uL (0-450); Eosinophils Percent Auto 4.4 % (2-4); Hematocrit 25.3 % (41-53); Hemoglobin 8.6 g/dL (13.5-17.5); Lymphocytes Absolute Auto 1100 /uL (1100-4500); Lymphocytes Percent Auto 19.6 % (25-40); Mean Corpuscular HGB Conc 34.2 % (30-36); Mean Corpuscular Volume 90.6 fL (80-100); Monocytes Absolute Auto 500 /uL (0-900); Monocytes Percent Auto 9.8 % (3-14); Neutrophils Absolute Auto 3600 /uL (1500-7000); Neutrophils Percent Auto 65.2 % (50-75); Platelet Count 136 X10^3/uL (150-400); Red Blood Cell Count 2.79 X10^6/uL (4.5-5.9); Red Cell Distribution Width 16.2 % (11.6-14.8); White Blood Cell Count 5.6 X10^3/uL (4.5-11.0)
[2024-05-26 05:36] LABS: Alanine Aminotransferase 17 IU/L (<50); Albumin 2.5 g/dL (3.5-5.0); Albumin Globulin Ratio 0.9 (1.0-2.8); Alkaline Phosphatase 110 U/L (38-126); Aspartate Aminotransferase 56 IU/L (17-59); BUN Creatinine Ratio 23.3 (6-22); Bilirubin Total 1.1 mg/dL (0.2-1.3); Blood Urea Nitrogen 20 mg/dL (9-20); Calcium 9.4 mg/dL (8.4-10.2); Carbon Dioxide 20 mmol/L (22-32); Chloride 114 mmol/L (98-107); Estimated Glomerular Filt Rate > 60 mL/min (>60); Globulin 2.8 g/dL (1.7-4.1); Glucose 98 mg/dL (80-110); HEMOLYSIS 32 (0-50); Potassium 3.6 mmol/L (3.4-5.1); Sodium 140 mmol/L (137-145); Total Protein 5.3 g/dL (6.3-8.2)
[2024-05-26] MEDS: LEVOTHYROXINE 100 MCG TABLET PO (06:17)
[2024-05-26] MEDS: PANTOPRAZOLE DR 20 MG TABLET PO (06:17)
[2024-05-26] MEDS: TAMSULOSIN 0.4 MG CAPSULE PO (08:52)
[2024-05-26] MEDS: SUCRALFATE 1 GM/10 ML ORAL SUSP PO ×4 (08:52→20:18)
[2024-05-26] MEDS: OXYBUTYNIN 5 MG ER TAB 10 MG PO (08:53)
[2024-05-26] MEDS: CLOPIDOGREL 75 MG TABLET PO (08:53)
[2024-05-26] MEDS: DULOXETINE 30 MG CAPSULE PO (08:53)
[2024-05-26] MEDS: EZETIMIBE 10 MG TABLET PO (08:53)
[2024-05-26] MEDS: buPROPion XL 150 MG TAB PO (08:53)
[2024-05-26] MEDS: ATORVASTATIN 20 MG TABLET 80 MG PO (08:53)
[2024-05-26] MEDS: ISOSORBIDE MONONITRATE ER 30 MG TABLET PO (08:53)
[2024-05-26] MEDS: RANOLAZINE 500 MG TAB.ER.12H PO ×2 (08:53→20:18)
[2024-05-26] MEDS: ASPIRIN 81 MG CHEW TAB PO (08:53)
[2024-05-26] MEDS: CARBIDOPA-LEVODOPA 25/100 TABLET 1 EACH PO ×3 (08:53→20:18)
[2024-05-26] MEDS: CHOLECALCIFEROL (VITAMIN D3) 1,000 UNIT TABLET 1000 UNIT PO (08:53)
--- NOTE | 2024-05-26 09:29 | P.PN_ITS ---
Subjective Subjective Interval history: Summary: He was admitted with altered mental status, fevers, and hypotension. He improved with IV fluids and did not eat pressors. He has been on empiric antibiotics since arrival with all cultures remained negative. He did have fevers for several days which have now resolved. His mental status is slowly improving. He is likely stable for discharge on Monday to [facility]. Social work will talk to both facilities to the side what makes more sense. We will continue oral antibiotics for an additional several days. Exam Vital Signs (past 8 hours): - 05/26/24 01:30 05/26/24 02:00 05/26/24 02:23 Temperature 98.8 F 98.8 F Pulse Rate 77 79 Respiratory Rate 17 17 Blood Pressure 107/58 L Pulse Oximetry 93 92 Oxygen Delivery Method Oxygen Flow Rate 05/26/24 02:23 05/26/24 02:30 05/26/24 03:00 Temperature 98.6 F 98.6 F 98.6 F Pulse Rate 75 76 74 Respiratory Rate 16 16 15 Blood Pressure Pulse Oximetry 93 92 93 Oxygen Delivery Method Oxygen Flow Rate 05/26/24 03:30 05/26/24 04:00 05/26/24 04:29 Temperature 98.6 F 98.4 F Pulse Rate 72 71 Respiratory Rate 15 16 Blood Pressure 113/61 Pulse Oximetry 92 92 Oxygen Delivery Method Oxygen Flow Rate 05/26/24 04:29 05/26/24 04:30 05/26/24 08:00 Temperature 98.4 F 98.4 F 98.6 F Pulse Rate 71 72 72 Respiratory Rate 16 15 15 Blood Pressure Pulse Oximetry 93 94 93 Oxygen Delivery Method Oxygen Flow Rate 05/26/24 08:21 05/26/24 09:25 Temperature Pulse Rate Respiratory Rate Blood Pressure 116/63 Pulse Oximetry 93 Oxygen Delivery Method Nasal Cannula Oxygen Flow Rate 2 Oxygen Delivery Method Nasal Cannula Oxygen Flow Rate 2 Narrative Exam Narrative: NAD, alert and oriented. Fluent speech. He was more animated and interactive today. He was quicker to answer questions. His confusion appears to be largely resolved. Lungs are clear, normal rate and effort. Heart is regular, no murmur gallop or rub. Abdomen is soft, non distended. Extremities are free of edema. Objective Labs 05/26/24 05:00 05/26/24 05:00 Labs: Laboratory Results - last 24 hr 05/25/24 05/26/24 04:35 05:00 WBC 5.6 RBC 2.79 L Hgb 8.6 L Hct 25.3 L MCV 90.6 MCH 31.0 MCHC 34.2 RDW 16.2 H Plt Count 136 L Neut % (Auto) 65.2 Lymph % (Auto) 19.6 L [place] % (Auto) 9.8 Eos % (Auto) 4.4 H Baso % (Auto) 1.0 Neut # (Auto) 3600 Lymph # (Auto) 1100 [place] # (Auto) 500 Eos # (Auto) 200 Baso # (Auto) 100 Sodium 140 Potassium 3.6 Chloride 114 H Carbon Dioxide 20 L BUN 20 Creatinine 0.86 Estimated GFR > 60 BUN/Creatinine Ratio 23.3 H Glucose 98 Hemoglobin A1c 5.1 Calcium 9.4 Total Bilirubin 1.1 AST 56 ALT 17 Alkaline Phosphatase 110 Total Protein 5.3 L Albumin 2.5 L Globulin 2.8 Albumin/Globulin Ratio 0.9 L PFSH Social History household members: spouse and none Smoking Status: Never smoker Assessment & Plan Assessment & Plan narrative: Sepsis with acute septic encephalopathy, hypotension, JOVI, elevated bilirubin, acute respiratory failure with hypoxia. Resolved. -cultures remained negative. CAD, stable. Aspirin, it appears plavix was also re-added since last admission as an outpatient. Hg is elevated compared to prior values. continue statin, metoprolol, nitroglycerin as needed Hypothyroidism, stable. Restart levothyroxine and check lipids. Hypertension, stable. Hold home lisinopril, resumed home metoprolol. GERD with recent GI bleeding, stable. Continue PO pantoprazole 20 mg. Parkinson's disease, stable. Restart home sinemet, started here last admission. BPH, stable. Continue flomax. Diabetes mellitus type II, diet controlled, stable. Restart Jardiance if patient able to bring in, and monitor blood sugar ACHS. ADA diet. Depression, stable. Restarted bupropion PLAN: -Continue antibiotic coverage with cefepime. -monitor mental status. Improved. -follow cultures. Urine does have many bacteria in it. Urine culture with mixed mellisa, blood cultures negative. -monitor hemoglobin. -monitor blood pressure, left arm PICC in place. Anticipate discharge back to [facility] on Monday, May 27. This will depend on him being stable overnight and social work discussions with [facility] and [facility] to see where they would like the patient to initially be. REJI: Returned to SNF around 05/26. Time-Based Coding :: [TOTAL MINUTES] spent with patient and on the chart (including review of chart, obtaining history, exam, reviewing outside data, placing orders, documenting exam and treatment plan, and counseling patient) on [DATE]. Quality VTE Deep Vein Thrombosis/Pulmonary Embolism Present on Admission: No
[2024-05-26] MEDS: DOXYCYCLINE 100 MG in SODIUM CHLORIDE 0.9% 100 ML IV ×2 (10:26→20:17)
--- NOTE | 2024-05-26 11:04 | PT.IPTN ---
Current Diagnoses Urinary tract infection, site not specified (05/21/24) Physical Therapy Treatment Note M2 PT-IP Current Condition Start: 05/23/24 08:13 Freq: NEEDED Status: Active Protocol: Document 05/24/24 10:15 AB (Rec: 05/24/24 13:45 AB [id number]) Physical Therapy Current Condition Current Condition Evaluation Date 05/24/24 Treatment Diagnosis sepsis; UTI; difficulty in walking Onset Date 05/21/24 M3 PT-IP Subjective Start: 05/23/24 08:13 Freq: NEEDED Status: Active Protocol: Document 05/26/24 10:50 MB (Rec: 05/26/24 11:04 MB [id number]) Subjective Physical Therapy Visit Type Type Treatment Note Visit Start Time 10:50 Visit Stop Time 11:00 Number of GREEN HOUSE MANAGER Visits 0 Physical Therapy Visit Comments Patient Comments Pt pleasantly confused and agreeable to PT. M4 PT-IP Mobility and Gait Start: 05/23/24 08:13 Freq: NEEDED Status: Active Protocol: Document 05/25/24 14:10 AB (Rec: 05/25/24 15:47 AB [id number]) PT-Bed Mobility Assessment Supine to Sit Supine to Sit Maximum Assistance,Total Assistance,2 Person Assistance ,Head of Bed Elevated,Bedrails Scooting Scooting to Edge of Bed Dependent PT-Transfer Assessment Sit to and From Stand Sit to and from Stand Maximum Assistance,2 Person Assistance,Use of Upper Extremities Equipment Transfer Assistive Device Mechanical Lift Transfers Transfer Destination Chair Transfer Technique Mechanical Lift Transfer Ability Level of Assist Total Assistance,2 Person Assistance Comments Mobility Comments pt in bed. spouse in room. spouse stepped out of the room before start of PT. BP: 104/ 58. O2 sat 94%. pt completed supine to sit with HOB elevated and use of bed rail max A x 2 to total A x 2 and max cues. pt with increase retrolean and lateral leaning to the L. pt sat on EOB for a few minutes. cued for midline positioning and to correct side leaning requiring max Ax 1-2 for positioning. pt completed sit to stand max Ax 2 and max cues x 3 attempts. pt needs BLE blocked to prevent from sliding forward. pt leaning against bed. tolerated ~ 10 sec of standing . pt unable to get to upright position on 3rd attempt of standing. positioned sling on pt to transfer to chair. pt transferred to chair using mechanical lift. proper chair positioning completed. call light and table placed within reach. M5 PT-IP Objective Assessments Start: 05/23/24 08:13 Freq: NEEDED Status: Active Protocol: Document 05/24/24 10:15 AB (Rec: 05/24/24 13:45 AB [id number]) Orientation Orientation/Cognition Level of Alertness Confusional State Orientation Name Language Function Ability Hard of Hearing Safety Awareness Decreased Safety Awareness Memory Description Short Term Impaired Gross Range of Motion Lower Extremity ROM Assessment Within Functional Limits Strength Lower Extremity Strength Assessment Bilaterally Impaired Hip 3-/5 Knee 3+/5 Muscle Tone Muscle Tone WNL Yes M6 PT-IP Treatment Start: 05/23/24 08:13 Freq: NEEDED Status: Active Protocol: Document 05/26/24 10:50 MB (Rec: 05/26/24 11:04 MB [id number]) Physical Therapy Treatment Other Treatments Other Treatment Performed AAROM and pt with trouble following commands and limited range with more limitations on the right: APs x20, B mini heel slides x10 each leg, pt cannot follow commands for QS or GS and he follows visual and VCs for B arm raises x10 reps M7 PT-IP Assessment and Plan Start: 05/23/24 08:13 Freq: NEEDED Status: Active Protocol: Document 05/26/24 10:50 MB (Rec: 05/26/24 11:04 MB [id number]) PT Summary Assessment and Plan Potential Rehabilitation Potential Poor Status of Condition at Evaluation Unstable Summary Impairments Pain,ROM,Strength,Balance, Coordination,Sensation,Tone, Cognition,Bed Mobility, Transfers,Gait,Activity Tolerance Progress Towards Goals Slow Progress due to Medical Issues,Slow Progress - Other Assessment Summary Pt pleasantly confused and has trouble following one step commands for bed level exercises. His O2 sats are 87- 90% with bed activities. Pt will require lift for OOB and he is found and left in cardiac chair position. Pt reports some discomfort in tail bone. Per nsg and doctor, pt may be close to baseline. Unsure if gait goals are appropriate, will con't to monitor. Goals Bed Mobility Goal Minimal Assistance Transfer Goal Minimal Assistance,Front Wheeled Walker Gait Goal Minimal Assistance,Front Wheel Walker Gait Distance 20 Other Goals improve bed mobility, transfers, ambulation SBA using FWW 50 ft Days to Meet Goals 10 Frequency of Treatment Frequency Of Treatment Once a Day Other frequency x2 Treatment Plan Physical Therapy Treatment Plan Bed Mobility Training,Transfer Training,Gait Training, Therapeutic Exercise,Balance Retraining,Discharge Planning, Hot or Cold Pack,Neuromuscular Re-ed,Coordination Retraining ,Manual Therapy Precautions Other Precautions falls; contact precautions Recommendations To Nursing Amount of Assist Needed Mechanical Lift Discharge Recommendations PT Discharge Recommendations SNF Rehab Transportation Needs at Discharge Wheelchair/Cabulance,Stretcher /Ambulance
[2024-05-26] MEDS: CEFEPIME 2 GM in SODIUM CHLORIDE 0.9% 100 ML IV ×2 (11:38→23:59)
--- NOTE | 2024-05-26 12:40 | CM.DPC ---
DCP SNF vs [facility] Cont: Per MD, pt making progress and likely could be stable to d/c to lower level of care tomorrow Monday and plan is to transition to PO abx. Per PT, pt max A and recommending lionel with nursing staff and SNF vs return to [facility]. SW spoke to [facility] and they can likely accept tomorrow Monday if SNF needed and [facility] auth in place. Although per pt's recent stay at [facility], he moved into [facility] needing 2PA and lift as similar to now so might be at his baseline for return to [facility] pending their review. JUANI faxed [facility] pt's clinicals requesting review first thing Monday AM to determine if they can accept pt back. JUANI faxed clinicals to [facility] on the weekend to review in case SNF auth needed for [facility] tomorrow. Plan: SW to follow closely Mon AM with [facility] staff to determine if they can accept pt back or requiring SNF prior to return. MARYCRUZ Copeland
[2024-05-26] MEDS: SODIUM CHLORIDE 0.9% FLUSH 10 ML IV (20:18)
[2024-05-26] MEDS: ALBUTEROL 2.5 MG/3 ML NEB (ADULT) INH (20:47)
[2024-05-27] VITALS (21 sets, daily range): BP systolic 129–132; BP diastolic 65–68; PULSE 71–83; RESP 17–23; TEMP 36.9–37.2; O2SAT 91–96
[2024-05-27] MEDS: LEVOTHYROXINE 100 MCG TABLET PO (05:57)
[2024-05-27] MEDS: PANTOPRAZOLE DR 20 MG TABLET PO (05:57)
[2024-05-27] MEDS: ATORVASTATIN 20 MG TABLET 80 MG PO (08:43)
[2024-05-27] MEDS: SUCRALFATE 1 GM/10 ML ORAL SUSP PO ×2 (08:43→12:42)
[2024-05-27] MEDS: DULOXETINE 30 MG CAPSULE PO (08:43)
[2024-05-27] MEDS: RANOLAZINE 500 MG TAB.ER.12H PO (08:43)
[2024-05-27] MEDS: buPROPion XL 150 MG TAB PO (08:43)
[2024-05-27] MEDS: ISOSORBIDE MONONITRATE ER 30 MG TABLET PO (08:43)
[2024-05-27] MEDS: OXYBUTYNIN 5 MG ER TAB 10 MG PO (08:44)
[2024-05-27] MEDS: ASPIRIN 81 MG CHEW TAB PO (08:44)
[2024-05-27] MEDS: EZETIMIBE 10 MG TABLET PO (08:44)
[2024-05-27] MEDS: CARBIDOPA-LEVODOPA 25/100 TABLET 1 EACH PO (08:44)
[2024-05-27] MEDS: CLOPIDOGREL 75 MG TABLET PO (08:44)
[2024-05-27] MEDS: TAMSULOSIN 0.4 MG CAPSULE PO (08:44)
[2024-05-27] MEDS: CHOLECALCIFEROL (VITAMIN D3) 1,000 UNIT TABLET 1000 UNIT PO (08:44)
[2024-05-27] MEDS: FERROUS SULFATE 325 MG TABLET PO (08:52)
[2024-05-27] MEDS: DOXYCYCLINE 100 MG in SODIUM CHLORIDE 0.9% 100 ML IV (09:15)
[2024-05-27] MEDS: SODIUM CHLORIDE 0.9% FLUSH 10 ML IV (09:15)
--- NOTE | 2024-05-27 10:19 | P.DS_ITS ---
History of Present Illness History of Present Illness Date Patient Seen: 05/27/24 Time Patient Seen: 10:19 Chief complaint: syncope Narrative: Per overnight provider, 74 years old male with history of hypertension, hyperlipidemia, CAD, CABG in 2004, AAA repair in 2012, depression, hypothyroidism, BPH, GERD presented to the ER with a fall. The patient is poor historian. It sounds he was getting to go to bed when he was found down by caregivers. The patient was hospitalized from 04/18/2024 to 04/29/2024 for GI bleed. After discharge he was sent to rehab where he reside currently. On presentation he was found to be quite hypotensive but responded well to 1 L of bolus. Denies any shortness of breath, cough, fever, chest pain, palpitations, nausea, vomiting, diarrhea., Diarrhea or dysuria. Denies any melena or hematemesis. Laboratory shows WBC 11.9, lactic acid 2.2, UA shows UTI, total bilirubin 1.5, blood sugar 160, H&H 11.2/33.4. Positive urine culture for Staphylococcus epididymis pansensitive from 04/25/2024 but unclear if it was treated. Chest x-ray unremarkable, CT of the head unremarkable. In the ER he was given ceftriaxone 1 g IV, levofloxacin 500 mg p.o. and fluid bolus. Interval history: patient remains confused but he is more alert today, does not recall why he is in the hospital. He denies abdominal pain, chest pain, or shortness of breath. Discharge Providers Provider Date of admission: 05/21/24 01:06 Discharge Date: 05/27/24 Primary care physician: Anshu Lugo MD Consults: 05/21/24 01:05 Consult to Physical Therapy Evaluate & Treat Comment: Physician Instructions: Evaluate and Treat 05/23/24 08:50 Consult to Dietitian, Adult Routine Comment: Reason For Exam: limited oral intake, skin breakdown Discharge provider: Adrian Wahl DO Summary Hospital Course Discharge Diagnosis: Sepsis with acute metabolic encephalopathy, hypotension, JOVI, elevated bilirubin, acute respiratory failure with hypoxia. improving. CAD, stable. Hypothyroidism, stable. Hypertension, stable. GERD with recent GI bleeding, stable. Parkinson's disease, stable. BPH, stable. Diabetes mellitus type II, diet controlled, stable. Depression, stable. Hospital Course: This is a 74-year-old male with a past medical history of CAD, hypertension, Parkinson's disease, and type 2 diabetes who was admitted with acute metabolic encephalopathy. Initially his urinalysis was positive and this was presumed due to sepsis likely due to a urinary source. Another possible source may be a pulmonary infection such as a bacterial pneumonia, though this is not entirely clear at this time. All cultures ultimately returned negative, though he did improve with continued cefepime while in the hospital. He was able to complete a course of antibiotic therapy therapy here in the hospital, and after therapy evaluations he was recommended for returned to custodial facility. No changes to his chronic home medications were recommended the time of discharge. Time Spent with Patient Time spent: Greater than 30 minutes Exam Vital Signs (past 8 hours): - 05/27/24 02:30 05/27/24 03:00 05/27/24 03:30 Temperature 98.8 F 98.6 F 98.6 F Pulse Rate 73 72 72 Respiratory Rate 20 17 18 Blood Pressure Pulse Oximetry 95 95 96 Oxygen Delivery Method 05/27/24 03:51 05/27/24 03:51 05/27/24 04:00 Temperature 98.6 F 98.6 F Pulse Rate 74 73 Respiratory Rate 20 17 Blood Pressure 132/65 Pulse Oximetry 96 95 Oxygen Delivery Method 05/27/24 04:30 05/27/24 05:00 05/27/24 05:30 Temperature 98.6 F 98.6 F 98.6 F Pulse Rate 74 72 73 Respiratory Rate 20 17 17 Blood Pressure Pulse Oximetry 94 93 92 Oxygen Delivery Method 05/27/24 06:00 05/27/24 06:30 05/27/24 07:00 Temperature 98.4 F 98.6 F 98.8 F Pulse Rate 72 76 75 Respiratory Rate 17 21 23 Blood Pressure Pulse Oximetry 95 94 96 Oxygen Delivery Method 05/27/24 07:30 05/27/24 07:58 05/27/24 07:58 Temperature 99.0 F Pulse Rate 76 77 Respiratory Rate 21 Blood Pressure 129/68 Pulse Oximetry 94 94 Oxygen Delivery Method 05/27/24 08:00 05/27/24 08:35 05/27/24 09:00 Temperature Pulse Rate 78 80 83 Respiratory Rate 21 20 23 Blood Pressure Pulse Oximetry Oxygen Delivery Method 05/27/24 10:00 Temperature Pulse Rate Respiratory Rate Blood Pressure Pulse Oximetry Oxygen Delivery Method Room Air Fraction of Inspired Oxygen 24 SaO2/FiO2 Ratio 375 Oxygen Delivery Method Room Air Oxygen Flow Rate 1 Narrative Exam Narrative: NAD, alert and oriented. Fluent speech. He was more animated and interactive today. He was quicker to answer questions. His confusion appears to be largely resolved. Lungs are clear, normal rate and effort. Heart is regular, no murmur gallop or rub. Abdomen is soft, non distended. Extremities are free of edema. Objective Labs 05/26/24 05:00 05/26/24 05:00 [facility] Social History household members: spouse and none Smoking Status: Never smoker Discharge Plan Discharge Plan Patient Disposition: SNF Transfer to: [facility] Provider Discharge Comment: 74 M with recent admission for GI bleeding after cardiac stents, now stable presented with encephalopathy presumed secondary to sepsis. Cultures were negative, no source found exactly. Completed antibiotic therapies while in the hospital. Home metoprolol and lisinopril have been held, unable to resume with normotension. Recommend continued evaluations trying to restart these for predatory animal exterminator heart health Discharge orders & Medications Prescriptions: Continued atorvastatin 80 mg tablet 80 mg PO BEDTIME isosorbide mononitrate 30 mg tablet extended release 24 hr 30 mg PO DAILY clopidogrel 75 mg tablet 75 mg PO DAILY acetaminophen 500 mg Tablet 500 mg PO Q6H PRN (Reason: Pain (Scale Score 1-3)) levothyroxine 100 mcg tablet 100 mcg PO DAILY tamsulosin 0.4 mg capsule 0.4 mg PO DAILY nitroglycerin 0.4 mg Tablet, Sublingual 0.4 mg SUBLINGUAL Q5-15M PRN (Reason: Chest Pain) Rx Instructions: do not exceed 3 doses per episode aspirin 81 mg Tablet,Chewable 81 mg PO DAILY ezetimibe 10 mg tablet 10 mg PO DAILY bupropion HCl 150 mg tablet extended release 24 hr 150 mg PO DAILY duloxetine 30 mg capsule,delayed release(DR/EC) 30 mg PO DAILY ranolazine 500 mg tablet extended release 12 hr 500 mg PO BID cholecalciferol (vitamin D3) 25 mcg (1,000 unit) Tablet 25 mcg PO DAILY omeprazole magnesium [Acid Industrial Design Intern (omeprazole)] 20 mg Capsule,Delayed Release(Dr/Ec) 20 mg PO DAILY mirabegron 50 mg tablet extended release 24 hr 50 mg PO DAILY Jardiance 10 mg tablet 10 mg PO DAILY hydrocodone-acetaminophen 5-325 mg Tablet 1 tab PO TID PRN (Reason: Pain, Moderate (4-6)) Qty: 30 0RF sucralfate 100 mg/mL Suspension 1 gm PO ACHS Qty: 120 0RF ferrous sulfate 325 mg (65 mg iron) Tablet 325 mg PO Q48H Qty: 30 0RF carbidopa-levodopa 25-100 mg Tablet 1 tab PO TID Qty: 90 0RF Discontinued metoprolol succinate 100 mg tablet extended release 24 hr 100 mg PO DAILY lisinopril 5 mg tablet 5 mg PO DAILY Follow up/Referrals: Anshu Lugo MD [Primary Care Provider] - Discharge Health Status Multidrug resistant organism: No MDRO Precautions: [place] Diet/Activity/Treatments Diet: Diet as Tolerated, Regular and Carb-consistent/Diabetic Liquid consistency: Normal/Thin Food texture: Regular Activity: As tolerated no restrictions Special Rehabilitation Services Reason for rehabilitation: Recovery r/t decondition Rehab type: Physical therapy and Occupational therapy Visit Report/Discharge Packet Stand Alone Forms: Patient Portal/API Discharge Data Primary Care Provider: Anshu Lugo Quality VTE Deep Vein Thrombosis/Pulmonary Embolism Present on Admission: No
[2024-05-27] MEDS: CEFEPIME 2 GM in SODIUM CHLORIDE 0.9% 100 ML IV (12:42)
[2024-05-27] MEDS: INSULIN LISPRO 100 UNIT/ML 3ML VIAL SUBCUT (12:42)
--- NOTE | 2024-05-27 13:19 | PC.NURSE ---
Addendum entered by [place]ia Layne R.N. 05/27/24 13:59: Bowel meds given per order. PO fluids encouraged. Pt hoyered to w/c. Report given to receiving nurse at [facility] at 1353. Pt wheeled via w/c by facility designee at approximately 1355. Time to void post-urinary catheter removal 1900, nurse at [facility] notified of this timeframe. Original Note: Pt A&O to self, situation, rough timeframe. Transferred to BSC and chair with lionel lift, passing gas but unable to have BM. Pt tolerating meals. Urinary catheter discontinued, PICC discontinued per provider. Pt unable to void post catheter removal d/t lack of urge. Bladder scanner results 100mL. Provider notified of no BM. New orders.
[2024-05-27] MEDS: polyethylene glycoL 3350 17 GM POWD.PACK PO (13:30)
[2024-05-27] MEDS: BISACODYL 5 MG TABLET 10 MG PO (13:31)
--- NOTE | 2024-05-27 15:31 | CM.DPNOTE ---
DCP Note IMPERSONATOR CHARACTER reviewed EMR per provider, pt cleared to dc either to [facility] or [facility] today. per [facility] (Adalgisa?), advocate for SNF dc to rather than return to [facility]. per Eliecer at [facility], auth SNF placement (#[id number]) for a few days before return to [facility]. Per Sadaf at , can accept pt today transport at 1330. will updated [facility]. report pt's current slotted roommate is rather loud and to update pt/family they will work to move pt to different room dewayne. IMPERSONATOR CHARACTER met with pt and spouse in room. reviewed plan. in agreement to dc to [facility] before returning to [facility]. pt and spouse express understanding that pt's roommate is temporary plan. IMPERSONATOR CHARACTER gave RN report number, updated provider. Completed PASRR with hospitalist signature. ANEL Mcmahan sent dc information to Sadaf at and placed in packet. IMPERSONATOR CHARACTER updated DIRECTOR OF SPECIAL EVENTS of dc. P: Dc to [facility] today at 1330 for a few days before returning to [facility]. team will continue to follow as needed MARYCRUZ Jeff
== END 2024-05-27 13:55 | DRG 871 ==
LOC: ED 20:04 → AC 05-21 01:15 → ICU 05-22 10:40
PROVIDERS: Hospitalist; Internal Medicine; Admitting Provider Internal Medicine; Emergency Provider Emergency Medicine; PCP Internal Medicine; Visit Provider Internal Medicine
DX: A41.9 Sepsis, unspecified organism (principal); G93.41 Metabolic encephalopathy; J96.01 Acute respiratory failure with hypoxia; J15.9 Unspecified bacterial pneumonia; N39.0 Urinary tract infection, site not specified; N17.9 Acute kidney failure, unspecified; I25.10 Atherosclerotic heart disease of native coronary artery without angina pectoris; I10 Essential (primary) hypertension; E78.5 Hyperlipidemia, unspecified; E03.9 Hypothyroidism, unspecified; K21.9 Gastro-esophageal reflux disease without esophagitis; G20.A1 Parkinson's disease without dyskinesia, without mention of fluctuations; N40.0 Benign prostatic hyperplasia without lower urinary tract symptoms; E11.9 Type 2 diabetes mellitus without complications; F32.A Depression, unspecified; R65.20 Severe sepsis without septic shock; R00.0 Tachycardia, unspecified; Z87.19 Personal history of other diseases of the digestive system; Z79.890 Hormone replacement therapy; Z95.1 Presence of aortocoronary bypass graft; Z66 Do not resuscitate; Z88.0 Allergy status to penicillin; Z88.2 Allergy status to sulfonamides; Z98.890 Other specified postprocedural states; Z79.84 Long term (current) use of oral hypoglycemic drugs
CPT/HCPCS: 0241U; 36415; 36569; 36592; 70450; 70544; 70549; 70553; 71045; 80048; 80053; 80061; 81001; 81003; 82550; 82962; 83036; 83605; 83690; 83735; 84443; 84484; 85014; 85018; 85025; 85027; 86850; 86870; 86900; 86901; 87040; 87086; 87797; 93005; 94640; 94762; 96361; 96365; 97110; 97163; 97530; 99284; 99285; A9579; J0131; J0692; J0696; J1642; J1815; J2405; J7613